=== PATIENT | female | born 1970 | race Caucasian/White ===

== ENCOUNTER → 2016-03-14 | Outpatient (CLI) | payer MEDICARE, OTHER, MEDICAID ==
[~2016-03-14] MED LIST: ASPI81TA85 PO; CALC500T36 PO; CRAN500C2 PO; DEMA20TA6 PO; DEPA500T2 PO; FARX1TAB2 PO; FISH500C PO; GARL200T2 PO; HYDR-3716 PO; HYDR12.55 PO; INSUDET SC; LISI10TA4 PO; METF500T4 PO; MIRA3350 PO; NICO7DIS23 TD; NORV5TAB PO; ONDA4TAB6 PO; PERCOCET PO; PLAV75TA PO; REGL5TAB2 PO; SIMV20TA2 PO; SIMV40TA2 PO; VITMTA PO; XANA0.5T PO; ZEST1TAB3 PO
[2016-03-14 17:52] LABS: BASO % 0.4 % (0.0-1.0); EOS # 0.3 K/mm3 (0.0-0.50); EOS % 2.9 % (0.0-3.0); LARGE UNSTAINED CELL # 0.2 K/mm3 (0.0-0.4); LARGE UNSTAINED CELL % 1.8 % (0.0-4.0); LYMPH % 22.4 % (24.0-44.0); MEAN CORPUSCULAR HEMOGLOBIN 27.6 pg (27.0-33.0); MEAN CORPUSCULAR HGB CONC 31.2 g/dl (32.0-36.5); MEAN CORPUSCULAR VOLUME 88.4 fl (80.0-96.0); MONO # 0.7 K/mm3 (0.0-0.8); MONO % 7.6 % (0.0-5.0); NEUTROPHILS # 5.9 K/mm3 (1.8-7.7); NEUTROPHILS % 64.9 % (36.0-66.0); PLATELET COUNT, AUTOMATED 336 k/mm3 (150-450); RED CELL DISTRIBUTION WIDTH 13.2 % (11.5-14.5)
[2016-03-14 17:54] LABS: INR 0.91
[2016-03-14 17:59] LABS: CALCIUM LEVEL 8.8 MG/DL (8.5-10.1); CREATININE FOR GFR 1.15 MG/DL (0.55-1.02); GLOMERULAR FILTRATION RATE 54.1 (>58); POTASSIUM SERUM 4.3 MEQ/L (3.5-5.1)
== END ==
LOC: M WUC 11:36
PROVIDERS: ATTEND Surgery Vascular Surgery
DX: Z01.818 Encounter for other preprocedural examination (principal); I70.211 Atherosclerosis of native arteries of extremities with intermittent claudication, right leg; D69.8 Other specified hemorrhagic conditions

== ENCOUNTER → 2016-03-14 | Outpatient (CLI) | payer MEDICARE, OTHER, MEDICAID ==
[~2016-03-14] MED LIST changes: -PLAV75TA PO; +PLAV75TA38 PO
[2016-03-14 17:55] LABS: BASO % 0.5 % (0.0-1.0); EOS # 0.3 K/mm3 (0.0-0.50); EOS % 3.9 % (0.0-3.0); LARGE UNSTAINED CELL # 0.1 K/mm3 (0.0-0.4); LARGE UNSTAINED CELL % 1.3 % (0.0-4.0); LYMPH # 1.8 K/mm3 (1.5-4.5); LYMPH % 21.8 % (24.0-44.0); MEAN CORPUSCULAR HEMOGLOBIN 27.7 pg (27.0-33.0); MEAN CORPUSCULAR HGB CONC 31.3 g/dl (32.0-36.5); MEAN CORPUSCULAR VOLUME 88.5 fl (80.0-96.0); MONO # 0.6 K/mm3 (0.0-0.8); MONO % 7.1 % (0.0-5.0); NEUTROPHILS # 5.5 K/mm3 (1.8-7.7); NEUTROPHILS % 65.4 % (36.0-66.0); PLATELET COUNT, AUTOMATED 326 k/mm3 (150-450); RED CELL DISTRIBUTION WIDTH 13.3 % (11.5-14.5); WHITE BLOOD COUNT 8.4 K/mm3 (4.0-10.0)
[2016-03-14 18:25] LABS: ALBUMIN 2.9 GM/DL (3.2-5.2); ALBUMIN/GLOBULIN RATIO 0.83 (1.00-1.93); BILIRUBIN,TOTAL 0.2 MG/DL (0.2-1.0); CALCIUM LEVEL 8.8 MG/DL (8.5-10.1); CREATININE FOR GFR 1.1 MG/DL (0.55-1.02); GLOMERULAR FILTRATION RATE 56.9 (>58); PHOSPHORUS LEVEL 3.4 MG/DL (2.5-4.9); POTASSIUM SERUM 4.5 MEQ/L (3.5-5.1); TOTAL PROTEIN 6.4 GM/DL (6.4-8.2)
[2016-03-16 10:48] LABS: PRETREATED FOLATE FOR RBCFOL 10.1 NG/ML
== END ==
LOC: M WUC 11:40
PROVIDERS: ATTEND Surgery
DX: Z98.84 Bariatric surgery status (principal); K91.2 Postsurgical malabsorption, not elsewhere classified

== ENCOUNTER → 2016-08-16 | Outpatient (REF) | payer MEDICARE, OTHER ==
[~2016-08-16] MED LIST changes: +NICO7DIS2 TD; -NICO7DIS23 TD
== END ==
LOC: M SFHCLERA 15:50
PROVIDERS: ATTEND Physician Assistant
DX: N39.0 Urinary tract infection, site not specified (principal)

== ENCOUNTER → 2016-08-31 | Outpatient (CLI) | payer MEDICARE ==
[2016-08-31 11:45] LABS: BASO % 0.5 % (0.0-1.0); EOS # 0.4 K/mm3 (0.0-0.50); EOS % 4.3 % (0.0-3.0); LARGE UNSTAINED CELL # 0.1 K/mm3 (0.0-0.4); LARGE UNSTAINED CELL % 1.5 % (0.0-4.0); LYMPH # 2.4 K/mm3 (1.5-4.5); MEAN CORPUSCULAR HEMOGLOBIN 29.6 pg (27.0-33.0); MEAN CORPUSCULAR HGB CONC 33.5 g/dl (32.0-36.5); MEAN CORPUSCULAR VOLUME 88.4 fl (80.0-96.0); MONO # 0.6 K/mm3 (0.0-0.8); MONO % 7.1 % (0.0-5.0); NEUTROPHILS # 4.8 K/mm3 (1.8-7.7); NEUTROPHILS % 58.6 % (36.0-66.0); PLATELET COUNT, AUTOMATED 297 k/mm3 (150-450); RED CELL DISTRIBUTION WIDTH 13.7 % (11.5-14.5); WHITE BLOOD COUNT 8.2 K/mm3 (4.0-10.0)
[2016-08-31 12:15] LABS: ALBUMIN 3.2 GM/DL (3.2-5.2); ALBUMIN/GLOBULIN RATIO 0.89 (1.00-1.93); BILIRUBIN,TOTAL 0.3 MG/DL (0.2-1.0); CALCIUM LEVEL 9.2 MG/DL (8.5-10.1); CREATININE FOR GFR 1.3 MG/DL (0.55-1.02); GLOMERULAR FILTRATION RATE 46.9 (>58); MAGNESIUM LEVEL 2.3 MG/DL (1.8-2.4); PHOSPHORUS LEVEL 3.8 MG/DL (2.5-4.9); POTASSIUM SERUM 4.7 MEQ/L (3.5-5.1); TOTAL PROTEIN 6.8 GM/DL (6.4-8.2)
[2016-08-31 13:42] LABS: PRETREATED FOLATE FOR RBCFOL 16.7 NG/ML
== END ==
LOC: M WUC 10:13
PROVIDERS: ATTEND Surgery
DX: K91.2 Postsurgical malabsorption, not elsewhere classified (principal); Z98.84 Bariatric surgery status

== ENCOUNTER → 2016-09-10 | Outpatient (CLI) | payer MEDICARE ==
[~2016-09-10] MED LIST changes: +BIOT7500 PO; -FARX1TAB2 PO; +FARX1TAB3 PO; +LABE30TA PO; +PLAV1TAB2 PO; -PLAV75TA38 PO; +TORS20TA2 PO; +VITA1DRO SL
[2016-09-10 19:05] LABS: MICROSCOPIC INDICATED? MAN YES (NO)
[2016-09-10 19:06] LABS: BACTERIA, URINE LARGE AMOUNT; RBC, URINE TNTC /hpf (0-3); SQUAMOUS EPITHELIAL CELL URINE SMALL AMOUNT /hpf (SMALL AMT)
[2016-09-10 19:08] LABS: MICROSCOPIC EXAM PERFORMED
[2016-09-10 19:18] LABS: BASO # 0.1 K/mm3 (0.0-0.2); BASO % 0.6 % (0.0-1.0); EOS # 0.5 K/mm3 (0.0-0.50); EOS % 4.9 % (0.0-3.0); LARGE UNSTAINED CELL # 0.1 K/mm3 (0.0-0.4); LARGE UNSTAINED CELL % 1.2 % (0.0-4.0); LYMPH # 2.9 K/mm3 (1.5-4.5); LYMPH % 28.1 % (24.0-44.0); MEAN CORPUSCULAR HEMOGLOBIN 29.4 pg (27.0-33.0); MEAN CORPUSCULAR HGB CONC 32.4 g/dl (32.0-36.5); MEAN CORPUSCULAR VOLUME 90.8 fl (80.0-96.0); MONO # 0.6 K/mm3 (0.0-0.8); MONO % 6.3 % (0.0-5.0); NEUTROPHILS # 5.8 K/mm3 (1.8-7.7); NEUTROPHILS % 58.8 % (36.0-66.0); PLATELET COUNT, AUTOMATED 293 k/mm3 (150-450); RED CELL DISTRIBUTION WIDTH 13.6 % (11.5-14.5); WHITE BLOOD COUNT 9.9 K/mm3 (4.0-10.0)
[2016-09-10 20:46] LABS: CALCIUM LEVEL 9.1 MG/DL (8.5-10.1); CREATININE FOR GFR 1.06 MG/DL (0.55-1.02); GLOMERULAR FILTRATION RATE 59.4 (>58); POTASSIUM SERUM 4.3 MEQ/L (3.5-5.1)
== END ==
LOC: M WUC 14:29
PROVIDERS: ATTEND Physician Assistant
DX: N18.3 Chronic kidney disease, stage 3 (moderate) (principal); N39.0 Urinary tract infection, site not specified

== ENCOUNTER → 2016-11-02 | Outpatient (CLI) | payer MEDICARE, MEDICAID ==
--- NOTE | 2016-11-02 15:13 | REP ---
DUPLEX DOPPLER ARTERIAL ULTRASOUND LEFT LOWER EXTREMITY: Real-time ultrasound evaluation and duplex Doppler evaluation of the left lower extremity arterial system is performed. The ANSON is 1. Mild to moderate plaquing is seen throughout the femoral artery. There is no definite significant focal stenosis of the left lower extremity arterial system. Peak systolic velocity and phasicity: Common femoral artery: 143 cm/s Triphasic profunda: 82.7 Triphasic SFA proximal: 78.7 Triphasic SFA mid: 117.6 Triphasic SFA distal: 141.1 Triphasic popliteal: 126.5 Triphasic proximal MIGUEL: 29.5 Biphasic tibial peroneal trunk: 70.1 Monophasic posterior tibial artery proximal: 62.2 Monophasic STEEL PICKLER distal: 120.9 Monophasic MIGUEL distal: 86.8 Signed by Monroe Moura MD 11/02/2016 05:26 P
== END ==
LOC: M RAD 12:33
PROVIDERS: ATTEND Surgery Vascular Surgery
DX: I70.25 Atherosclerosis of native arteries of other extremities with ulceration (principal)

== ENCOUNTER → 2016-11-06 | Outpatient (CLI) | payer MEDICARE, MEDICAID ==
--- NOTE | 2016-11-06 10:08 | REP ---
RIGHT LOWER EXTREMITY ARTERIAL DUPLEX ULTRASOUND: HISTORY: Pain in the right leg. Status post superficial femoral artery stents. Increasing leg pain. FINDINGS: Ankle brachial index is 0.6 on the right. Peak systolic flow velocity in the right common iliac artery is recorded 114 cm/s. The right external iliac artery flow velocity is 102 cm/s. These were triphasic. There is significant atherosclerotic plaquing in the common femoral artery with a greater than 50% stenosis. The right superficial femoral artery stents appear to be occluded. Collateral flow from the proximal superficial femoral artery reconstitutes the distal superficial femoral artery. Monophasic flow is seen here and distally. Doppler flow velocities in the right lower extremity are recorded as follows: CARE COORDINATOR 56 cm/s triphasic, profunda 140 cm/s monophasic, proximal SFA a 26 cm/s monophasic, mid SFA occluded, distal SFA 16 cm/s monophasic, popliteal 56 cm/s monophasic, proximal anterior tibial artery 20 cm/s monophasic, tibial peroneal trunk 39 cm/s monophasic, posterior tibial artery 25 cm/s monophasic waveform, distal posterior tibial artery 15 cm/s monophasic waveform, distal anterior tibial artery 18 cm/s and monophasic waveform. IMPRESSION: SFA stents are occluded. Distal SFA is reconstituted with monophasic flow in the remainder of the right lower extremity. There is a greater than 50% atherosclerotic stenotic plaque in the common femoral artery. Signed by Gavino Sloan MD 11/06/2016 12:13 P
== END ==
LOC: M RAD 07:54
PROVIDERS: ATTEND Surgery Vascular Surgery
DX: M79.604 Pain in right leg (principal); Z95.828 Presence of other vascular implants and grafts; I70.201 Unspecified atherosclerosis of native arteries of extremities, right leg

== ENCOUNTER → 2016-11-20 | Outpatient (CLI) | payer MEDICARE, MEDICAID ==
--- NOTE | 2016-11-20 12:57 | REP ---
BILATERAL LOWER EXTREMITY DOPPLER VENOUS ULTRASOUND: 11/20/2016. CLINICAL HISTORY: Lower extremity superficial veins, evaluate for SFA graft. The patient had previous vein graft harvest on the right. COMPARISON: Left leg ultrasound 09/07/2015, bilateral 01/12/2015 both for DVT and both negative. FINDINGS: Bilateral lower extremity vein mapping performed. The right greater saphenous vein, previously harvested for coronary bypass graft. There is an anterior accessory greater saphenous vein present as well as a lesser saphenous vein. The LSV measures 3.2 mm proximally, 1.9 mm in its mid course and 2.2 mm in its distal course. The left greater saphenous vein is present and patent. It has measurements as follows: Proximal 8.8 mm, mid thigh 5.8 mm, distal 5.5 mm, left knee 5.3 mm, and then the calf 3.8 mm. There are three collaterals seen in the thigh and one perforating vein in the distal thigh. The lesser saphenous vein on the left does not have connection to the popliteal vein visible. In the calf it has a proximal diameter of 2.4 mm, mid diameter 2.5 mm and distally 3 mm. There does appear to be a ticket seller in the mid course of that left LSV. IMPRESSION: 1. The right greater saphenous vein has been harvested for prior CABG. Anterior accessory GSV is present, this is a lesser saphenous vein described above. 2. Greater saphenous vein is present and patent throughout with measurements as described. There are at least three collaterals in the thigh and one ticket seller in the distal thigh. The lesser saphenous vein on the left does not connect to the popliteal vein, but its measurements are given above and there is a ticket seller in its mid course. Signed by Arjun Monahan MD 11/20/2016 04:14 P
== END ==
LOC: M RAD 10:45
PROVIDERS: ATTEND Surgery Vascular Surgery
DX: I70.25 Atherosclerosis of native arteries of other extremities with ulceration (principal)

== ENCOUNTER → 2016-12-20 | Outpatient (CLI) | payer MEDICARE, MEDICAID ==
[2016-12-20 14:12] LABS: MEAN CORPUSCULAR HEMOGLOBIN 29.2 pg (27.0-33.0); MEAN CORPUSCULAR HGB CONC 32.5 g/dl (32.0-36.5); RED CELL DISTRIBUTION WIDTH 13.1 % (11.5-14.5); WHITE BLOOD COUNT 11.6 10^3/uL (4.0-10.0)
[2016-12-20 14:28] LABS: CALCIUM LEVEL 9.3 MG/DL (8.5-10.1); CREATININE FOR GFR 1.08 MG/DL (0.55-1.02); GLOMERULAR FILTRATION RATE 57.9 (>58)
== END ==
LOC: M WUC 08:36
PROVIDERS: ATTEND Surgery Vascular Surgery
DX: I70.25 Atherosclerosis of native arteries of other extremities with ulceration (principal); E11.65 Type 2 diabetes mellitus with hyperglycemia; E78.2 Mixed hyperlipidemia

== ENCOUNTER → 2016-12-20 | Outpatient (CLI) | payer MEDICARE, MEDICAID | LOC: M WUC 08:41 | PROVIDERS: ATTEND Physician Assistant | DX: E11.65 Type 2 diabetes mellitus with hyperglycemia (principal); E78.2 Mixed hyperlipidemia ==

== ENCOUNTER 2016-12-25 12:45 | Inpatient (IN) | payer MEDICARE, MEDICAID ==
[~2016-12-25] VITALS: Ht 162.6 cm; Wt 76.0 kg
[2016-12-27] MEDS ORDERED: THROMBIN SOLN 20,000 UNITS KIT As Ordered ONE (12:45)
[2016-12-27] MEDS ORDERED: LIDOCAINE 1% SDV INJ 30 ML VIAL As Ordered ONE (12:45)
[2016-12-27] MEDS ORDERED: BUPIVACAINE HCL 0.5% 30 ML VIAL As Ordered ONE (12:46)
[2016-12-27] MEDS ORDERED: HEPARIN SOD (PORCINE) 5000 UNITS/ML VIAL As Ordered ONE (12:46)
[2016-12-27] MEDS ORDERED: LIDOCAINE 1% MDV 20ML VIAL SC PRN (13:00)
[2016-12-27] MEDS ORDERED: LR 1,000 ML IV ONE (13:00)
[2016-12-27] MEDS ORDERED: CLINDAMYCIN 900 MG/50 ML PREMIX BAG As Ordered ONE (14:03)
[2016-12-27] MEDS ORDERED: fentaNYL 250 MCG/5 ML INJECTION (J3010) As Ordered ONE (14:13)
[2016-12-27] MEDS ORDERED: MIDAZOLAM INJ 2 MG/2 ML VIAL (J2250) As Ordered ONE ×2 (14:13→16:47)
[2016-12-27] MEDS ORDERED: PROPOFOL 500 MG/50 ML VIAL As Ordered ONE (14:13)
[2016-12-27] MEDS ORDERED: PHENYLEPHRINE INJ 10MG/ML VIAL (J2370) As Ordered ONE (14:24)
[2016-12-27] MEDS ORDERED: ePHEDrine SULFATE 25 MG/5 ML(5MG/ML) SYRINGE As Ordered ONE (14:33)
[2016-12-27] MEDS ORDERED: ROCURONIUM BROMIDE 50 MG/5 ML VIAL/SYRINGE As Ordered ONE (14:33)
[2016-12-27] MEDS ORDERED: DESFLURANE 240 ML INHALANT As Ordered ONE ×2 (15:11→16:53)
[2016-12-27] MEDS ORDERED: dexameTHASONE 4 MG/ML 1ML VIAL (J1100) As Ordered ONE (15:28)
[2016-12-27] MEDS ORDERED: NEOSTIGMINE 10 MG/10 ML VIAL (J2710) As Ordered ONE (16:10)
[2016-12-27] MEDS ORDERED: ONDANSETRON 4MG/2ML VIAL (J2405) As Ordered ONE (16:10)
[2016-12-27] MEDS ORDERED: GLYCOPYRROLATE INJ 0.2 MG/ML 2 ML VIAL As Ordered ONE (16:10)
[2016-12-27] MEDS: LR 1,000 ML IV SCH (16:24)
[2016-12-27] MEDS ORDERED: ONDANSETRON 4MG/2ML VIAL (J2405) IV PRN ×3 (16:30→18:30)
[2016-12-27] MEDS ORDERED: BISACODYL 10 MG SUPP PR PRN (16:30)
[2016-12-27] MEDS ORDERED: MOM 30ML SUSPENSION UDC PO PRN (16:30)
[2016-12-27] MEDS ORDERED: NORCO, ANEXSIA 5/325MG TABLET (HYDROcodone/ACETAMINOPHEN) PO PRN ×2 (16:30)
[2016-12-27] MEDS ORDERED: ACETAMINOPHEN TAB 650MG DOSE (2X325MG) PO PRN ×2 (16:30→20:30)
[2016-12-27] MEDS ORDERED: fentaNYL 100 MCG/2 ML INJECTION (J3010) As Ordered ONE ×2 (16:46→16:55)
[2016-12-27] MEDS ORDERED: LIDOCAINE 2% INJ 100 MG/5 ML SDV (FOR ANES.) As Ordered ONE (16:47)
[2016-12-27] MEDS ORDERED: PROPOFOL 200 MG/20 ML VIAL As Ordered ONE (16:47)
[2016-12-27] MEDS: fentaNYL 100 MCG/2 ML INJECTION (J3010) IV PRN ×6 (16:58→17:54)
[2016-12-27] MEDS ORDERED: METOCLOPRAMIDE INJ 10MG/2ML VIAL (J2765) IV PRN ×2 (17:00→18:30)
[2016-12-27] MEDS ORDERED: PERCOCET 5MG/325MG TAB PO PRN ×2 (17:00→18:30)
[2016-12-27] MEDS ORDERED: LR 1,000 ML IV SCH ×2 (17:00→18:30)
[2016-12-27] MEDS ORDERED: MORPHINE 2 MG/ML 1ML SYRINGE IV PRN ×2 (17:00→18:30)
[2016-12-27 17:45] VITALS: BP 143/80
[2016-12-27 18:15] VITALS: BP 159/86
[2016-12-27] MEDS ORDERED: fentaNYL 100 MCG/2 ML INJECTION (J3010) IV PRN (18:30)
[2016-12-27 18:45] VITALS: BP 172/94
[2016-12-27 19:45] VITALS: BP 139/75
[2016-12-27] MEDS ORDERED: NALOXONE INJ 0.4 MG/1 ML VIAL (J2310) IV PRN (20:15)
[2016-12-27] MEDS ORDERED: NALBUPHINE HCL 10 MG/ML AMP (J2300) IV PRN (20:15)
[2016-12-27] MEDS ORDERED: MORPHINE 1MG/ML IN 0.9% NACL 100ML IV BAG IV PRN (20:15)
[2016-12-27] MEDS ORDERED: diphenhydrAMINE INJ 50MG/ML VIAL (J1200) IV PRN (20:15)
[2016-12-27] MEDS ORDERED: EPIDURAL/PCA KEYS XX PRN (20:15)
[2016-12-27 20:45] VITALS: BP 147/79
[2016-12-27] MEDS ORDERED: ASCORBIC ACID 250 MG TAB PO SCH (21:00)
[2016-12-27] MEDS ORDERED: BRINZOLAMIDE 1 % OPHTH SUSP (AZOPT) 10ML OU SCH (21:00)
[2016-12-27] MEDS: SENOKOT S TAB PO SCH (21:59)
[2016-12-27] MEDS: DOCUSATE SODIUM 100 MG CAP PO SCH (21:59)
[2016-12-28] VITALS (7 sets, daily range): BP systolic 132–145; BP diastolic 65–76
[2016-12-28] MEDS ORDERED: MORPHINE 1MG/ML IN 0.9% NACL 100ML IV BAG IV PRN (04:45)
[2016-12-28] MEDS: LR 1,000 ML IV SCH ×2 (04:54→20:40)
[2016-12-28 06:57] LABS: CALCIUM LEVEL 8.2 MG/DL (8.5-10.1); CREATININE FOR GFR 1.15 MG/DL (0.55-1.02); GLOMERULAR FILTRATION RATE 53.8 (>58); POTASSIUM SERUM 4.2 MEQ/L (3.5-5.1)
[2016-12-28 07:00] LABS: BASO % 0.2 % (0.0-1.0); EOS % 0.1 % (0.0-3.0); IMMATURE GRANULOCYTE % 0.2 % (0-0); LYMPH # 1.7 10^3/uL (1.5-4.5); LYMPH % 13.4 % (24.0-44.0); MEAN CORPUSCULAR HEMOGLOBIN 28.8 pg (27.0-33.0); MEAN CORPUSCULAR HGB CONC 32.9 g/dl (32.0-36.5); MEAN CORPUSCULAR VOLUME 87.5 fl (80.0-96.0); MONO # 1.5 10^3/uL (0.0-0.8); MONO % 11.8 % (0.0-5.0); NEUTROPHILS # 9.3 10^3/uL (1.8-7.7); NEUTROPHILS % 74.3 % (36.0-66.0); PLATELET COUNT, AUTOMATED 213 10^3/uL (150-450); RED CELL DISTRIBUTION WIDTH 13.2 % (11.5-14.5); WHITE BLOOD COUNT 12.6 10^3/uL (4.0-10.0)
[2016-12-28] MEDS ORDERED: ATENOLOL 25 MG TAB PO SCH (09:00)
[2016-12-28] MEDS: SENOKOT S TAB PO SCH ×2 (10:51→21:44)
[2016-12-28] MEDS: DOCUSATE SODIUM 100 MG CAP PO SCH ×2 (10:51→21:45)
[2016-12-28] MEDS: ALPRAZolam 0.5 MG TAB PO SCH (10:51)
[2016-12-28] MEDS: MULTIVITAMINS/MINERALS THERAP 1 TAB PO SCH (10:51)
[2016-12-28] MEDS: CLOPIDOGREL 75 MG TAB PO SCH (10:51)
[2016-12-28] MEDS: TORSEMIDE 20 MG TAB PO SCH (10:52)
[2016-12-28] MEDS: LABETALOL 100 MG TAB PO SCH (10:53)
[2016-12-28] MEDS: NORCO, ANEXSIA 5/325MG TABLET (HYDROcodone/ACETAMINOPHEN) PO PRN (21:46)
[2016-12-28] MEDS: zolPIDEM TARTRATE 5 MG TAB PO PRN (21:46)
[2016-12-29] MEDS: MORPHINE 2 MG/ML 1ML SYRINGE IV PRN ×4 (04:20→21:04)
[2016-12-29] MEDS: NORCO, ANEXSIA 5/325MG TABLET (HYDROcodone/ACETAMINOPHEN) PO PRN ×4 (04:20→23:57)
[2016-12-29 04:40] VITALS: BP 170/79
[2016-12-29 04:43] VITALS: BP 152/74
[2016-12-29] MEDS: LR 1,000 ML IV SCH (09:00)
[2016-12-29] MEDS: MULTIVITAMINS/MINERALS THERAP 1 TAB PO SCH (10:00)
[2016-12-29] MEDS: ALPRAZolam 0.5 MG TAB PO SCH (10:00)
[2016-12-29] MEDS: TORSEMIDE 20 MG TAB PO SCH (10:01)
[2016-12-29] MEDS: DOCUSATE SODIUM 100 MG CAP PO SCH ×2 (10:01→21:04)
[2016-12-29] MEDS: SENOKOT S TAB PO SCH ×2 (10:01→21:04)
[2016-12-29] MEDS: LABETALOL 100 MG TAB PO SCH (10:04)
[2016-12-29] MEDS: CLOPIDOGREL 75 MG TAB PO SCH (10:05)
[2016-12-29 14:00] VITALS: BP 132/62
[2016-12-29] MEDS ORDERED: GLUCAGON FOR INJ 1 MG VIAL (J1610) SC PRN (19:45)
[2016-12-29] MEDS ORDERED: DEXTROSE 50% 50 ML SYRINGE IV PRN (19:45)
[2016-12-29] MEDS ORDERED: GLUCOSE 4 GM CHEW TABLET PO PRN (19:45)
[2016-12-29] MEDS: zolPIDEM TARTRATE 5 MG TAB PO PRN (21:04)
[2016-12-29] MEDS: HumaLOG INSULIN (NovoLOG) PER UNIT SC SCH (21:48)
[2016-12-29 22:00] VITALS: BP 134/60
[2016-12-30] MEDS: MORPHINE 2 MG/ML 1ML SYRINGE IV PRN ×4 (01:11→23:51)
[2016-12-30] MEDS: LR 1,000 ML IV SCH ×2 (03:52→17:19)
[2016-12-30 06:00] VITALS: BP 158/70
[2016-12-30] MEDS: NORCO, ANEXSIA 5/325MG TABLET (HYDROcodone/ACETAMINOPHEN) PO PRN ×3 (06:21→18:26)
[2016-12-30] MEDS: HumaLOG INSULIN (NovoLOG) PER UNIT SC SCH ×4 (07:30→21:00)
[2016-12-30] MEDS: MULTIVITAMINS/MINERALS THERAP 1 TAB PO SCH (10:38)
[2016-12-30] MEDS: CLOPIDOGREL 75 MG TAB PO SCH (10:38)
[2016-12-30] MEDS: ALPRAZolam 0.5 MG TAB PO SCH (10:38)
[2016-12-30] MEDS: SENOKOT S TAB PO SCH ×2 (10:39→20:42)
[2016-12-30] MEDS: DOCUSATE SODIUM 100 MG CAP PO SCH ×2 (10:39→20:42)
[2016-12-30] MEDS: TORSEMIDE 20 MG TAB PO SCH (10:40)
[2016-12-30] MEDS: LABETALOL 100 MG TAB PO SCH (11:31)
[2016-12-30 14:00] VITALS: BP 140/63
[2016-12-30] MEDS ORDERED: MOM 30ML SUSPENSION UDC PO ONE (19:45)
[2016-12-30] MEDS: zolPIDEM TARTRATE 5 MG TAB PO PRN (21:39)
[2016-12-30 22:00] VITALS: BP 138/65
[2016-12-31] MEDS: NORCO, ANEXSIA 5/325MG TABLET (HYDROcodone/ACETAMINOPHEN) PO PRN ×4 (01:45→23:47)
[2016-12-31 06:00] VITALS: BP 131/64
[2016-12-31] MEDS: MORPHINE 2 MG/ML 1ML SYRINGE IV PRN ×4 (06:03→20:50)
[2016-12-31] MEDS: TORSEMIDE 20 MG TAB PO SCH (09:10)
[2016-12-31] MEDS: ALPRAZolam 0.5 MG TAB PO SCH (09:10)
[2016-12-31] MEDS: DOCUSATE SODIUM 100 MG CAP PO SCH ×2 (09:10→20:48)
[2016-12-31] MEDS: MULTIVITAMINS/MINERALS THERAP 1 TAB PO SCH (09:10)
[2016-12-31] MEDS: LABETALOL 100 MG TAB PO SCH (09:10)
[2016-12-31] MEDS: CLOPIDOGREL 75 MG TAB PO SCH (09:10)
[2016-12-31] MEDS: SENOKOT S TAB PO SCH ×2 (09:10→20:48)
[2016-12-31] MEDS: HumaLOG INSULIN (NovoLOG) PER UNIT SC SCH ×4 (09:11→20:52)
--- NOTE | 2016-12-31 15:30 | REP ---
LEFT LOWER EXTREMITY DUPLEX DOPPLER ARTERIAL ULTRASOUND: Real-time sonographic ultrasound evaluation and duplex Doppler interrogation of the left lower extremity arterial system is performed. There are normal flow velocities in the left common femoral artery, superficial femoral artery, popliteal artery as well as anterior and posterior tibial arteries with triphasic waveforms in all of these vessels. There is no duplex Doppler sonographic evidence of hemodynamically significant stenosis of any of these vessels. Peak systolic velocity of the left common femoral artery is 133 cm/s, superficial femoral artery 101.5 cm/s and left popliteal artery 86.2 cm/s. Signed by Monroe Moura MD 12/31/2016 04:36 P
[2016-12-31 22:00] VITALS: BP 156/71
[2016-12-31] MEDS: zolPIDEM TARTRATE 5 MG TAB PO PRN (23:47)
[2017-01-01] MEDS: MORPHINE 2 MG/ML 1ML SYRINGE IV PRN ×6 (02:11→19:55)
[2017-01-01 06:00] VITALS: BP 143/67
[2017-01-01] MEDS: NORCO, ANEXSIA 5/325MG TABLET (HYDROcodone/ACETAMINOPHEN) PO PRN ×3 (07:34→23:04)
[2017-01-01] MEDS: ALPRAZolam 0.5 MG TAB PO SCH (08:30)
[2017-01-01] MEDS: DOCUSATE SODIUM 100 MG CAP PO SCH ×2 (08:30→20:41)
[2017-01-01] MEDS: SENOKOT S TAB PO SCH ×2 (08:30→20:41)
[2017-01-01] MEDS: LABETALOL 100 MG TAB PO SCH (08:31)
[2017-01-01] MEDS: TORSEMIDE 20 MG TAB PO SCH (08:31)
[2017-01-01] MEDS: CLOPIDOGREL 75 MG TAB PO SCH (08:31)
[2017-01-01] MEDS: MULTIVITAMINS/MINERALS THERAP 1 TAB PO SCH (08:32)
[2017-01-01] MEDS: HumaLOG INSULIN (NovoLOG) PER UNIT SC SCH ×4 (08:33→20:36)
[2017-01-01 14:00] VITALS: BP 147/73
[2017-01-01 22:00] VITALS: BP 143/69
[2017-01-02] MEDS ORDERED: NORCO, ANEXSIA 5/325MG TABLET (HYDROcodone/ACETAMINOPHEN) PO PRN (00:15)
[2017-01-02] MEDS: zolPIDEM TARTRATE 5 MG TAB PO PRN (01:44)
[2017-01-02 06:00] VITALS: BP 142/71
[2017-01-02] MEDS: HumaLOG INSULIN (NovoLOG) PER UNIT SC SCH ×4 (08:10→21:00)
[2017-01-02] MEDS: NORCO, ANEXSIA 5/325MG TABLET (HYDROcodone/ACETAMINOPHEN) PO PRN ×3 (08:13→16:20)
[2017-01-02] MEDS: MULTIVITAMINS/MINERALS THERAP 1 TAB PO SCH (08:13)
[2017-01-02] MEDS: ALPRAZolam 0.5 MG TAB PO SCH (08:13)
[2017-01-02] MEDS: TORSEMIDE 20 MG TAB PO SCH (08:14)
[2017-01-02] MEDS: DOCUSATE SODIUM 100 MG CAP PO SCH ×2 (08:14→20:34)
[2017-01-02] MEDS: CLOPIDOGREL 75 MG TAB PO SCH (08:14)
[2017-01-02] MEDS: SENOKOT S TAB PO SCH ×2 (08:14→20:34)
[2017-01-02] MEDS: LABETALOL 100 MG TAB PO SCH (08:15)
[2017-01-02 14:00] VITALS: BP 139/67
[2017-01-02] MEDS ORDERED: PERCOCET 5MG/325MG TAB PO PRN (20:30)
[2017-01-02] MEDS: PERCOCET 5MG/325MG TAB PO PRN (20:36)
[2017-01-02 22:00] VITALS: BP 164/86
[2017-01-03] VITALS (13 sets, daily range): BP systolic 120–178; BP diastolic 69–88
[2017-01-03] MEDS: zolPIDEM TARTRATE 5 MG TAB PO PRN (00:43)
[2017-01-03] MEDS: PERCOCET 5MG/325MG TAB PO PRN ×5 (00:44→21:49)
[2017-01-03] MEDS: HumaLOG INSULIN (NovoLOG) PER UNIT SC SCH ×4 (07:54→20:59)
[2017-01-03] MEDS: TORSEMIDE 20 MG TAB PO SCH (08:00)
[2017-01-03] MEDS: DOCUSATE SODIUM 100 MG CAP PO SCH ×2 (08:00→20:59)
[2017-01-03] MEDS: CLOPIDOGREL 75 MG TAB PO SCH (08:00)
[2017-01-03] MEDS: LABETALOL 100 MG TAB PO SCH (08:00)
[2017-01-03] MEDS: ALPRAZolam 0.5 MG TAB PO SCH (08:00)
[2017-01-03] MEDS: SENOKOT S TAB PO SCH ×2 (08:01→20:59)
[2017-01-03] MEDS: MULTIVITAMINS/MINERALS THERAP 1 TAB PO SCH (08:01)
[2017-01-03] MEDS ORDERED: fentaNYL 100 MCG/2 ML INJECTION (J3010) As Ordered ONE (15:10)
[2017-01-03] MEDS ORDERED: MIDAZOLAM INJ 2 MG/2 ML VIAL (J2250) As Ordered ONE (15:11)
[2017-01-03] MEDS ORDERED: HEPARIN 1,000 UNITS/ML 10ML VIAL (FOR RADIOLOGY& DIALYSIS ONLY) As Ordered ONE (15:11)
[2017-01-03] MEDS ORDERED: ISOVUE-300 61% 50ML VIAL (Q9967) As Ordered ONE (15:12)
[2017-01-04] MEDS: zolPIDEM TARTRATE 5 MG TAB PO PRN (02:26)
[2017-01-04] MEDS: PERCOCET 5MG/325MG TAB PO PRN ×3 (02:27→12:46)
[2017-01-04 06:00] VITALS: BP 163/75
[2017-01-04] MEDS: HumaLOG INSULIN (NovoLOG) PER UNIT SC SCH ×2 (08:59→12:00)
[2017-01-04 09:02] VITALS: BP 157/81
[2017-01-04] MEDS: LABETALOL 100 MG TAB PO SCH (09:02)
[2017-01-04] MEDS: SENOKOT S TAB PO SCH (09:02)
[2017-01-04] MEDS: TORSEMIDE 20 MG TAB PO SCH (09:02)
[2017-01-04] MEDS: DOCUSATE SODIUM 100 MG CAP PO SCH (09:02)
[2017-01-04] MEDS: MULTIVITAMINS/MINERALS THERAP 1 TAB PO SCH (09:03)
[2017-01-04] MEDS: CLOPIDOGREL 75 MG TAB PO SCH (09:03)
[2017-01-04] MEDS ORDERED: INFLUENZA QUADRIVALENT PF VACCINE 0.5ML SYRINGE (90686) IM ONE (15:00)
--- NOTE | 2017-01-16 18:30 | REPIR ---
DATE OF PROCEDURE: 01/03/2017 PREPROCEDURE DIAGNOSES: Left lower extremity fist toe amputation site ulcer, left lower extremity pain. POSTPROCEDURE DIAGNOSES: Left lower extremity fist toe amputation site ulcer, left lower extremity pain. PROCEDURE: Ultrasound guided right brachial vein IV placement, aortogram, iliofemoral angiogram, left lower extremity angiogram, MINX closure of the left common femoral arteriotomy. SURGEON: Dr. Jorge Harris. DIRECTOR OF PROVIDER RELATIONS: ANESTHESIA: Local with sedation with 2 mg of Versed, 100 mcg of Fentanyl and 10 mL of 2% lidocaine. SEDATION TIME: 1546 to 1625, for a total of 39 minutes. FLUOROSCOPIC TIME: 2.222 minutes. CONTRAST: 17 mL. HEPARIN: None. COMPLICATIONS: None. DRAINS: None. SPECIMENS: None. IMPLANTS: Left femoral MINX closure device. . INDICATION: The patient is a 46-year-old female with recent right femoral popliteal artery bypass grafting and pain and ulceration of the left lower extremity. Patient underwent an ultrasound showing the flow to be normal in the left lower extremity with no obvious stenosis or occlusion but the patient has an ulcer on the previous left 1st toe amputation site and chronic pain in the left lower extremity with non palpable pulses. Patient wanted to undergo a left lower extremity angiogram with possible angioplasty and stent. Risks, benefits and alternative treatment options were discussed with the patient. PROCEDURE: The patient was taken to the angiography suite and placed supine on the angiography room table and then prepped and draped in a standard surgical fashion. The left common femoral artery was cannulated with a micropuncture needle. After anesthetizing the overlying skin with 1% Lidocaine a micropuncture wire was advanced through the micropuncture needle which was upside to a micropuncture sheath. An advancer wire was advanced through the micropuncture sheath which was upsized to a 5-[place] sheath. An Omni Flush catheter was placed in the aorta and an aortogram was performed. Catheter was pulled down level with the bifurcation needle. An iliofemoral angiogram was performed. A left lower extremity angiogram was then performed through the sheath showing an approximate 70-80% stenosis in the mid superficial femoral and popliteal artery junction. The catheter and wires were removed. The sheath was removed and a MINX closure device was used to close the arteriotomy in the left common femoral artery. No intervention was performed due to the retrograde cannulation and inability to cannulate the right side due to a recent right femoral popliteal artery bypass graft. The patient will return at a later date for a left lower extremity angioplasty with angiogram. Dressings were applied. The patient tolerated the procedure well. All instrument, sponge and needle counts were correct at the end of the case. There were no complications. Dr. Harris was present for and directed the entire case. Patient was transferred to the holding area and subsequently to the floor in stable condition. RADIOLOGIC SUPERVISION INTERPRETATION: The aortogram and iliofemoral angiogram were normal. There was a stenosis at the left superficial femoral popliteal artery junction with good inflow below the knee region by the tibial vessels. A MINX closure device was used to close the arteriotomy in the left common femoral artery.
--- NOTE | 2017-01-17 17:47 | RO ---
DATE OF PROCEDURE: 12/27/2016 PREOPERATIVE DIAGNOSIS: Right lower extremity claudication, right occluded superficial femoral artery. POSTOPERATIVE DIAGNOSIS: Right lower extremity claudication, right occluded superficial femoral artery. PROCEDURE: Re-do right common femoral arterial exposure, right common femoral to above knee popliteal artery bypass graft with 8 mm polytetrafluoroethylene (PTFE) graft. SURGEON: Dr. Bi Harris TERRAZZO SUPERVISOR: None. ANESTHESIA: General endotracheal. ESTIMATED BLOOD LOSS: 100 mL. IV FLUID: 1100 mL. URINE OUTPUT: 175 mL via Galindo. HEPARIN: 7000 units followed by 2000 units additional bolus, clindamycin 900 units. COMPLICATIONS: None. DRAINS: None. SPECIMENS: None. IMPLANTS: 8 mm PTFE graft from the right common femoral artery to the above knee popliteal artery. INDICATION: The patient is a 46-year-old female with diabetes mellitus and previous angioplasty and stenting of her right common superficial femoral artery that has now had occlusion of her right superficial femoral artery within the stent. The patient has significant claudication in the right lower extremity and will undergo a right [id number] artery bypass graft. Risks, benefits and alternative treatment options were discussed with the patient. DESCRIPTION OF PROCEDURE: The patient was taken to the operating room, placed supine on the operating room table and then prepped and draped in . A time-out was then performed with the team members in the room confirming the correct procedure, patient and laterality. The right common femoral artery was then exposed through an oblique incision in the inguinal region, and this was a re-do exposure with a large amount of scar tissue noted. The common femoral artery was dissected proximally and distally and then encircled with Vesi-loops. The above-knee popliteal artery was then exposed through a transverse incision in the above-knee region and the popliteal artery was exposed and dissected proximally and distally. The graft was tunneled and then anastomosed to the right common femoral artery and the right popliteal artery using #6-0 Prolene suture. There was good flow through the graft and into the right lower extremity with 2+ palpable dorsalis pedis and posterior tibial pulses at the completion of the bypass. The incisions were then closed once hemostasis was obtained using #2-0 Vicryl to approximate the deeper layers and maría to approximate the skin. All instrument, sponge and needle counts were correct at the end of the case. There were no complications. Dr. Harris was present for and directed the entire case. The patient was transferred to the recovery room, awake, alert, extubated and in stable condition.
--- NOTE | 2017-01-21 11:52 | DSES ---
DATE OF ADMISSION: 12/27/2016 DATE OF DISCHARGE: 01/04/2017 ADMITTING DIAGNOSES: Bilateral lower extremity atherosclerotic arterial occlusive disease, diabetes mellitus. PROCEDURES PERFORMED: Right femoral to popliteal artery bypass graft, left lower extremity angiogram. HOSPITAL COURSE: The patient was admitted and underwent a right femoral to popliteal artery bypass graft with good result with palpable dorsalis pedis and posterior tibial pulses in the right lower extremity. The patient had an ulcer at the tip of her previous first toe amputation and underwent angiography of the left lower extremity showing stenosis in her superficial femoral and popliteal artery junction, which was not amenable to intervention at this time due to her femoral to popliteal artery bypass graft. The patient will followup as an outpatient for left lower extremity angiogram with angioplasty of the stenosis in her superficial femoral and popliteal arteries.
== END 2017-01-04 14:45 | disposition home or self-care (01) | DRG 254 ==
LOC: M OR 12-27 12:43 → M MSPAV 12-27 17:47
PROVIDERS: ADMIT Surgery Vascular Surgery; ATTEND Surgery Vascular Surgery
PROC: 041K0JL Bypass Right Femoral Artery to Popliteal Artery with Synthetic Substitute, Open Approach (ICD-10-PCS; principal; 2016-12-27 15:45)
DX: I70.211 Atherosclerosis of native arteries of extremities with intermittent claudication, right leg (principal); E11.9 Type 2 diabetes mellitus without complications; I10 Essential (primary) hypertension; Z79.82 Long term (current) use of aspirin; Z79.899 Other long term (current) drug therapy; Z87.891 Personal history of nicotine dependence

== ENCOUNTER → 2017-02-19 | Outpatient (CLI) | payer MEDICARE, MEDICAID ==
[~2017-02-19] MED LIST changes: +HEPARIN 1,000 UNITS/ML 10ML VIAL (FOR RADIOLOGY& DIALYSIS ONLY) As Ordered ONE; +ISOVUE-300 61% 50ML VIAL (Q9967) As Ordered ONE; +MIDAZOLAM INJ 2 MG/2 ML VIAL (J2250) As Ordered ONE; +PROTAMINE SULF INJ 50 MG/5 ML VIAL (J2720) As Ordered ONE; +fentaNYL 100 MCG/2 ML INJECTION (J3010) As Ordered ONE
--- NOTE | 2017-02-27 16:53 | REPIR ---
DATE OF PROCEDURE: PREPROCEDURE DIAGNOSIS: Nonhealing left lower extremity first amputation toe site ulcer, left lower extremity femoral arterial atherosclerotic occlusion disease, diabetes mellitus. POSTPROCEDURE DIAGNOSIS: Nonhealing left lower extremity first amputation toe site ulcer, left lower extremity femoral arterial atherosclerotic occlusion disease, diabetes mellitus. PROCEDURE: Right common femoral arterial cannulation, selective left common femoral artery catheter placement with angiogram, selective left popliteal artery angiogram, catheter placement angiogram, left superficial femoral arthrectomy with 2.47 mm jet stream arthrectomy catheter, left superficial femoral artery angioplasty with 7 x 150 mm balloon. SURGEON: Dr. Jorge Harris. WORKFORCE DEVELOPMENT VICE PRESIDENT: ANESTHESIA: Local with sedation. SEDATION TIME: 11:25-12.45 for a total of 80 minutes with the sedation and cardiopulmonary monitoring performed by the nurse in the room under my direct supervision. I was present for and directed the entire case. INDICATION: Patient is a 46year-old female who has previously undergone angioplasty of her left superficial femoral artery and has had recurrence and now has an ulcer on her left first toe amputation site which has been slow to heal. Patient previously underwent angiogram showing stenosis in the superficial femoral artery and now follows up for angiogram with possible angioplasty and stent and or arthrectomy. Risks, benefits and alternative treatment options were discussed with the patient. PROCEDURE: The patient was taken to the angiography suite and placed supine on the angiography room table and the right common femoral artery was cannulated with a micropuncture needle after anesthetizing the overlying skin with 1% lidocaine. The micropuncture wire was advanced through the micropuncture needle which was upsized to a micropuncture sheath. A Exploretripson wire was advanced through the micropuncture sheath which was upsized to a #5-[place] sheath. An Omni flush catheter was used to transverse the bifurcation and the catheter was placed in the left common femoral artery. This was then advanced into the left superficial femoral artery at the level of the stenosis. This was used to cross the stenosis and then place in the left popliteal artery and an angiogram was performed confirming intraluminal positioning at the crossing lesion. Arthrectomy was then performed of the left superficial femoral artery with a cm Jet stream catheter. The followup angiogram showed some minor luminal irregularities and the left superficial femoral artery was angioplastied with a 7 x 150 mm balloon with a followup angiogram showing resolution of the stenosis. Catheters and wires were removed. The sheath was removed and a Mynx closure device was used to close the arteriotomy in the right common femoral artery with an additional 10 minutes of adjunctive pressure applied for hemostasis. Dressings were then applied. Patient tolerated the procedure well. All instrument, sponge and needle counts were correct at the end of the case. There were no complications. Dr. Harris was present for and directed the entire case. Patient was transferred to the holding area and subsequently discharged in stable condition. RADIOLOGIC SUPERVISION INTERPRETATION: The initial angiogram showed the stenosis in the left superficial femoral artery which underwent arthrectomy with a Jet stream catheter and then followup angioplasty with good angiographic result noted on followup angiography. A Mynx closure device was used to close the arteriotomy in the right common femoral artery.
== END | disposition home or self-care (01) ==
LOC: M IRPRO 10:07
PROVIDERS: ATTEND Surgery Vascular Surgery
DX: I70.245 Atherosclerosis of native arteries of left leg with ulceration of other part of foot (principal); L97.528 Non-pressure chronic ulcer of other part of left foot with other specified severity; E11.9 Type 2 diabetes mellitus without complications
CPT/HCPCS: 37225; 75710; 99152; 99153; C1725; C1769; C1887; C1894; J2250; J2720; J3010; Q9967

== ENCOUNTER → 2017-04-02 | Outpatient (CLI) | payer MEDICARE, MEDICAID | LOC: M RAD 08:51 | DX: I70.213 Atherosclerosis of native arteries of extremities with intermittent claudication, bilateral legs (principal); I70.25 Atherosclerosis of native arteries of other extremities with ulceration; E08.621 Diabetes mellitus due to underlying condition with foot ulcer | CPT/HCPCS: 93923 ==

== ENCOUNTER → 2017-06-12 | Outpatient (REF) | payer MEDICARE, MEDICAID ==
[2017-06-12 19:28] LABS: ESTIMATED AVERAGE GLUCOSE 169 MG/DL (60-110); HEMOGLOBIN A1c 7.5 %
[2017-06-12 19:41] LABS: ALBUMIN 2.6 GM/DL (3.2-5.2); ALBUMIN/GLOBULIN RATIO 0.81 (1.00-1.93); ALKALINE PHOSPHATASE 105 U/L (45-117); ALT/SGPT 14 U/L (12-78); ANION GAP 4 MEQ/L (8-16); AST/SGOT 11 U/L (7-37); BILIRUBIN,TOTAL 0.3 MG/DL (0.2-1.0); BLOOD UREA NITROGEN 15 MG/DL (7-18); CALCIUM LEVEL 8.4 MG/DL (8.5-10.1); CARBON DIOXIDE LEVEL 29 MEQ/L (21-32); CHLORIDE LEVEL 112 MEQ/L (98-107); CHOLESTEROL LEVEL 162 MG/DL (<200); CREATININE FOR GFR 1.04 MG/DL (0.55-1.30); GLOMERULAR FILTRATION RATE > 60.0 (>58); GLUCOSE, FASTING 131 MG/DL (70-100); HDL CHOLESTEROL 54 MG/DL (>40); NON-HDL-C 108 MG/DL; POTASSIUM SERUM 4.4 MEQ/L (3.5-5.1); SODIUM LEVEL 145 MEQ/L (136-145); TOTAL PROTEIN 5.8 GM/DL (6.4-8.2); TRIGLYCERIDES LEVEL 115 MG/DL (<150)
== END ==
LOC: M SFHCLERA 11:21
DX: E78.2 Mixed hyperlipidemia (principal); E11.65 Type 2 diabetes mellitus with hyperglycemia; R82.90 Unspecified abnormal findings in urine
CPT/HCPCS: 80053

== ENCOUNTER 2017-07-04 13:39 | Inpatient (IN) | payer MEDICARE, MEDICAID ==
[~2017-07-04 13:39] MED LIST changes: -ASPI81TA85 PO; -BIOT7500 PO; +BISACODYL 10 MG SUPP PR; -CALC500T36 PO; -CRAN500C2 PO; -DEMA20TA6 PO; -DEPA500T2 PO; -FARX1TAB3 PO; -FISH500C PO; -GARL200T2 PO; -HEPARIN 1,000 UNITS/ML 10ML VIAL (FOR RADIOLOGY& DIALYSIS ONLY) As Ordered ONE; -HYDR-3716 PO; -HYDR12.55 PO; -INSUDET SC; -ISOVUE-300 61% 50ML VIAL (Q9967) As Ordered ONE; -LABE30TA PO; -LISI10TA4 PO; -METF500T4 PO; -MIDAZOLAM INJ 2 MG/2 ML VIAL (J2250) As Ordered ONE; -MIRA3350 PO; -NICO7DIS2 TD; -NORV5TAB PO; -ONDA4TAB6 PO; -PERCOCET PO; -PLAV1TAB2 PO; -PROTAMINE SULF INJ 50 MG/5 ML VIAL (J2720) As Ordered ONE; -REGL5TAB2 PO; -SIMV20TA2 PO; -SIMV40TA2 PO; -TORS20TA2 PO; -VITA1DRO SL; -VITMTA PO; -XANA0.5T PO; -ZEST1TAB3 PO; -fentaNYL 100 MCG/2 ML INJECTION (J3010) As Ordered ONE
[2017-07-04 14:39] LABS: BASO # 0.1 10^3/uL (0.0-0.2); BASO % 0.5 % (0.0-1.0); EOS # 0.3 10^3/uL (0.0-0.50); EOS % 2.9 % (0.0-3.0); HEMATOCRIT 40.8 % (36.0-47.0); HEMOGLOBIN 13.4 g/dl (12.0-15.5); IMMATURE GRANULOCYTE % 0.3 % (0-3.0); LYMPH # 2.4 10^3/uL (1.5-4.5); LYMPH % 24.8 % (24.0-44.0); MEAN CORPUSCULAR HGB CONC 32.8 g/dl (32.0-36.5); MEAN CORPUSCULAR VOLUME 85.2 fl (80.0-96.0); MONO # 0.7 10^3/uL (0.0-0.8); MONO % 7.1 % (0.0-5.0); NEUTROPHILS # 6.2 10^3/uL (1.8-7.7); NEUTROPHILS % 64.4 % (36.0-66.0); PLATELET COUNT, AUTOMATED 258 10^3/uL (150-450); RED BLOOD COUNT 4.79 10^6/uL (4.00-5.40); RED CELL DISTRIBUTION WIDTH 14.2 % (11.5-14.5); WHITE BLOOD COUNT 9.6 10^3/uL (4.0-10.0)
[2017-07-04 14:43] LABS: CONTROL LINE UCG INT CTR LINE PRESENT; URINE PREG TEST NEGATIVE (NEGATIVE)
[2017-07-04 14:55] LABS: INR 0.93; PROTHROMBIN TIME 12.6 SECONDS (12.4-14.5)
[2017-07-04 14:56] LABS: PARTIAL THROMBOPLASTIN TIME 29.7 SECONDS (26.8-37.9)
[2017-07-04] MEDS ORDERED: CIPROFLOXACIN 400 MG in APPROPRIATE DILUENT 1 EA IV (15:00)
[2017-07-04 15:11] LABS: ALBUMIN 2.9 GM/DL (3.2-5.2); ALBUMIN/GLOBULIN RATIO 0.78 (1.00-1.93); ALKALINE PHOSPHATASE 116 U/L (45-117); ALT/SGPT 19 U/L (12-78); ANION GAP 6 MEQ/L (8-16); AST/SGOT 15 U/L (7-37); BILIRUBIN,DIRECT < 0.1 MG/DL (0.0-0.2); BILIRUBIN,TOTAL 0.3 MG/DL (0.2-1.0); BLOOD UREA NITROGEN 30 MG/DL (7-18); CALCIUM LEVEL 8.5 MG/DL (8.5-10.1); CARBON DIOXIDE LEVEL 28 MEQ/L (21-32); CHLORIDE LEVEL 108 MEQ/L (98-107); CREATININE FOR GFR 1.48 MG/DL (0.55-1.30); GLOMERULAR FILTRATION RATE 40.2 (>58); GLUCOSE, FASTING 152 MG/DL (70-100); POTASSIUM SERUM 3.7 MEQ/L (3.5-5.1); SODIUM LEVEL 142 MEQ/L (136-145); TOTAL PROTEIN 6.6 GM/DL (6.4-8.2)
[2017-07-04 15:16] LABS: LACTIC ACID SEPSIS PROTOCOL 0.6 MMOL/L (0.4-2.0)
[2017-07-04] MEDS: metroNIDAZOLE 500 MG in APPROPRIATE DILUENT 1 EA IV ×2 (18:33→23:14)
[2017-07-04] MEDS: LR 1,000 ML IV (18:34)
[2017-07-04] MEDS: CIPROFLOXACIN 400 MG in APPROPRIATE DILUENT 1 EA IV (19:57)
[2017-07-04] MEDS: SENOKOT S TAB PO (21:42)
[2017-07-04] MEDS: DOCUSATE SODIUM 100 MG CAP PO (21:42)
[2017-07-04] MEDS: ALPRAZolam 0.5 MG TAB PO (22:41)
[2017-07-04] MEDS: ANEXSIA, NORCO 7.5MG/325MG TABLET(HYDROCODONE/APAP) PO (22:41)
[2017-07-04] MEDS: zolPIDEM TARTRATE 5 MG TAB PO (23:13)
[2017-07-05] MEDS: CIPROFLOXACIN 400 MG in APPROPRIATE DILUENT 1 EA IV ×2 (04:18→18:20)
[2017-07-05] MEDS: LR 1,000 ML IV ×2 (05:26→17:08)
[2017-07-05] MEDS: SODIUM CHLORIDE 0.9% INJ 10 ML SYR IV ×2 (05:26→18:21)
[2017-07-05] MEDS: SENOKOT S TAB PO ×2 (09:13→21:11)
[2017-07-05] MEDS: ROSUVASTATIN 10 MG TAB (CRESTOR) PO (09:13)
[2017-07-05] MEDS: CLOPIDOGREL 75 MG TAB PO (09:13)
[2017-07-05] MEDS: metroNIDAZOLE 500 MG in APPROPRIATE DILUENT 1 EA IV ×2 (09:14→17:08)
[2017-07-05] MEDS: VITAMIN D 1,000 INTERNATIONAL UNITS TABLET PO (09:14)
[2017-07-05] MEDS: TORSEMIDE 20 MG TAB PO (09:14)
[2017-07-05] MEDS: MULTIVITAMINS/MINERALS THERAP 1 TAB PO (09:14)
[2017-07-05] MEDS: DOCUSATE SODIUM 100 MG CAP PO ×2 (09:14→21:11)
[2017-07-05] MEDS: ANEXSIA, NORCO 7.5MG/325MG TABLET(HYDROCODONE/APAP) PO ×3 (09:16→21:12)
[2017-07-05] MEDS: LABETALOL 100 MG TAB PO (11:02)
[2017-07-05] MEDS: zolPIDEM TARTRATE 5 MG TAB PO (21:11)
[2017-07-05] MEDS: ALPRAZolam 0.5 MG TAB PO (21:11)
[2017-07-06] MEDS: metroNIDAZOLE 500 MG in APPROPRIATE DILUENT 1 EA IV ×4 (00:06→23:44)
[2017-07-06] MEDS: CIPROFLOXACIN 400 MG in APPROPRIATE DILUENT 1 EA IV ×2 (05:47→17:31)
[2017-07-06] MEDS: SODIUM CHLORIDE 0.9% INJ 10 ML SYR IV ×2 (05:54→17:32)
[2017-07-06] MEDS: LR 1,000 ML IV (06:00)
[2017-07-06] MEDS: DOCUSATE SODIUM 100 MG CAP PO ×2 (09:44→20:39)
[2017-07-06] MEDS: VITAMIN D 1,000 INTERNATIONAL UNITS TABLET PO (09:44)
[2017-07-06] MEDS: ROSUVASTATIN 10 MG TAB (CRESTOR) PO (09:44)
[2017-07-06] MEDS: TORSEMIDE 20 MG TAB PO (09:44)
[2017-07-06] MEDS: SENOKOT S TAB PO ×2 (09:44→20:39)
[2017-07-06] MEDS: CLOPIDOGREL 75 MG TAB PO (09:44)
[2017-07-06] MEDS: MULTIVITAMINS/MINERALS THERAP 1 TAB PO (09:44)
[2017-07-06] MEDS: ANEXSIA, NORCO 7.5MG/325MG TABLET(HYDROCODONE/APAP) PO ×2 (09:45→17:32)
[2017-07-06] MEDS: LABETALOL 100 MG TAB PO (09:49)
[2017-07-06] MEDS: ALPRAZolam 0.5 MG TAB PO (13:31)
[2017-07-06] MEDS: zolPIDEM TARTRATE 5 MG TAB PO (23:51)
[2017-07-07] MEDS: ANEXSIA, NORCO 7.5MG/325MG TABLET(HYDROCODONE/APAP) PO ×3 (01:39→23:41)
[2017-07-07] MEDS: LR 1,000 ML IV ×3 (01:41→22:24)
[2017-07-07] MEDS: CIPROFLOXACIN 400 MG in APPROPRIATE DILUENT 1 EA IV ×2 (05:04→16:18)
[2017-07-07] MEDS: SODIUM CHLORIDE 0.9% INJ 10 ML SYR IV ×2 (05:04→17:42)
[2017-07-07] MEDS: MULTIVITAMINS/MINERALS THERAP 1 TAB PO (09:54)
[2017-07-07] MEDS: DOCUSATE SODIUM 100 MG CAP PO ×2 (09:58→20:43)
[2017-07-07] MEDS: LABETALOL 100 MG TAB PO (09:58)
[2017-07-07] MEDS: CLOPIDOGREL 75 MG TAB PO (09:59)
[2017-07-07] MEDS: SENOKOT S TAB PO ×2 (09:59→20:43)
[2017-07-07] MEDS: ROSUVASTATIN 10 MG TAB (CRESTOR) PO (09:59)
[2017-07-07] MEDS: TORSEMIDE 20 MG TAB PO (09:59)
[2017-07-07] MEDS: metroNIDAZOLE 500 MG in APPROPRIATE DILUENT 1 EA IV ×3 (10:00→23:40)
[2017-07-07] MEDS: VITAMIN D 1,000 INTERNATIONAL UNITS TABLET PO (10:00)
[2017-07-07] MEDS: zolPIDEM TARTRATE 5 MG TAB PO (22:24)
[2017-07-08] MEDS: CIPROFLOXACIN 400 MG in APPROPRIATE DILUENT 1 EA IV ×2 (04:51→16:27)
[2017-07-08] MEDS: SODIUM CHLORIDE 0.9% INJ 10 ML SYR IV ×2 (05:27→16:27)
[2017-07-08] MEDS: metroNIDAZOLE 500 MG in APPROPRIATE DILUENT 1 EA IV ×3 (09:01→23:28)
[2017-07-08] MEDS: TORSEMIDE 20 MG TAB PO (09:02)
[2017-07-08] MEDS: ROSUVASTATIN 10 MG TAB (CRESTOR) PO (09:02)
[2017-07-08] MEDS: SENOKOT S TAB PO ×2 (09:02→21:57)
[2017-07-08] MEDS: CLOPIDOGREL 75 MG TAB PO (09:02)
[2017-07-08] MEDS: DOCUSATE SODIUM 100 MG CAP PO ×2 (09:02→21:57)
[2017-07-08] MEDS: MULTIVITAMINS/MINERALS THERAP 1 TAB PO (09:02)
[2017-07-08] MEDS: VITAMIN D 1,000 INTERNATIONAL UNITS TABLET PO (09:07)
[2017-07-08] MEDS: LABETALOL 100 MG TAB PO (09:58)
[2017-07-08 11:03] LABS: HEMATOCRIT 33.3 % (36.0-47.0); HEMOGLOBIN 10.9 g/dl (12.0-15.5); MEAN CORPUSCULAR HEMOGLOBIN 28.5 pg (27.0-33.0); MEAN CORPUSCULAR HGB CONC 32.7 g/dl (32.0-36.5); MEAN CORPUSCULAR VOLUME 86.9 fl (80.0-96.0); PLATELET COUNT, AUTOMATED 194 10^3/uL (150-450); RED BLOOD COUNT 3.83 10^6/uL (4.00-5.40); RED CELL DISTRIBUTION WIDTH 14.5 % (11.5-14.5); WHITE BLOOD COUNT 8.9 10^3/uL (4.0-10.0)
[2017-07-08 11:10] LABS: ALBUMIN 2.2 GM/DL (3.2-5.2); ALBUMIN/GLOBULIN RATIO 0.81 (1.00-1.93); ALKALINE PHOSPHATASE 88 U/L (45-117); ALT/SGPT 21 U/L (12-78); ANION GAP 5 MEQ/L (8-16); AST/SGOT 22 U/L (7-37); BILIRUBIN,TOTAL 0.1 MG/DL (0.2-1.0); BLOOD UREA NITROGEN 19 MG/DL (7-18); CALCIUM LEVEL 7.7 MG/DL (8.5-10.1); CARBON DIOXIDE LEVEL 28 MEQ/L (21-32); CHLORIDE LEVEL 110 MEQ/L (98-107); CREATININE FOR GFR 1.13 MG/DL (0.55-1.30); GLOMERULAR FILTRATION RATE 54.9 (>58); GLUCOSE, FASTING 170 MG/DL (70-100); POTASSIUM SERUM 4.2 MEQ/L (3.5-5.1); SODIUM LEVEL 143 MEQ/L (136-145); TOTAL PROTEIN 4.9 GM/DL (6.4-8.2)
[2017-07-08] MEDS: LR 1,000 ML IV ×3 (11:31→23:28)
[2017-07-08] MEDS ORDERED: MIDAZOLAM INJ 5 MG/ML VIAL (J2250) (17:14)
[2017-07-08] MEDS ORDERED: PROPOFOL 200 MG/20 ML VIAL ×2 (17:14→18:58)
[2017-07-08] MEDS ORDERED: fentaNYL 100 MCG/2 ML INJECTION (J3010) (17:14)
[2017-07-08] MEDS: BUPIVACAINE HCL 0.5% 30 ML VIAL As Ordered (19:07)
[2017-07-08] MEDS: LIDOCAINE 1% SDV INJ 30 ML VIAL As Ordered (19:07)
[2017-07-08] MEDS ORDERED: fentaNYL 100 MCG/2 ML INJECTION (J3010) As Ordered (19:17)
[2017-07-08] MEDS ORDERED: PERCOCET 5MG/325MG TAB As Ordered ×2 (19:17→19:58)
[2017-07-08] MEDS: fentaNYL 100 MCG/2 ML INJECTION (J3010) IV ×4 (19:17→19:46)
[2017-07-08] MEDS: PERCOCET 5MG/325MG TAB PO ×2 (19:17→20:00)
[2017-07-08] MEDS ORDERED: ONDANSETRON 4MG/2ML VIAL (J2405) IV (19:30)
[2017-07-09] MEDS: ALPRAZolam 0.5 MG TAB PO (02:04)
[2017-07-09] MEDS: MORPHINE 10 MG/ML 1ML VIAL (J2270) IV (03:20)
[2017-07-09] MEDS: MORPHINE 4 MG/ML 1ML VIAL/SYRINGE (J2270) IV ×4 (03:57→10:11)
[2017-07-09] MEDS: PERCOCET 5MG/325MG TAB PO ×3 (04:25→10:44)
[2017-07-09] MEDS: CIPROFLOXACIN 400 MG in APPROPRIATE DILUENT 1 EA IV ×2 (04:26→16:57)
[2017-07-09] MEDS: SODIUM CHLORIDE 0.9% INJ 10 ML SYR IV ×2 (05:57→16:58)
[2017-07-09] MEDS: metroNIDAZOLE 500 MG in APPROPRIATE DILUENT 1 EA IV ×2 (08:17→15:36)
[2017-07-09] MEDS: VITAMIN D 1,000 INTERNATIONAL UNITS TABLET PO (08:17)
[2017-07-09] MEDS: MULTIVITAMINS/MINERALS THERAP 1 TAB PO (08:17)
[2017-07-09] MEDS: CLOPIDOGREL 75 MG TAB PO (08:17)
[2017-07-09] MEDS: SENOKOT S TAB PO ×2 (08:17→22:11)
[2017-07-09] MEDS: ROSUVASTATIN 10 MG TAB (CRESTOR) PO (08:17)
[2017-07-09] MEDS: TORSEMIDE 20 MG TAB PO (08:17)
[2017-07-09] MEDS: LABETALOL 100 MG TAB PO (08:17)
[2017-07-09] MEDS: DOCUSATE SODIUM 100 MG CAP PO ×2 (08:17→22:11)
[2017-07-09] MEDS ORDERED: ONDANSETRON 4MG/2ML VIAL (J2405) IV (11:00)
[2017-07-09] MEDS ORDERED: EPIDURAL/PCA KEYS XX (11:00)
[2017-07-09] MEDS ORDERED: NALBUPHINE HCL 10 MG/ML AMP (J2300) IV (11:00)
[2017-07-09] MEDS ORDERED: NALOXONE INJ 0.4 MG/1 ML VIAL (J2310) IV (11:00)
[2017-07-09] MEDS: MORPHINE 1MG/ML IN 0.9% NACL 100ML IV BAG IV (13:44)
[2017-07-09] MEDS: LR 1,000 ML IV (14:00)
[2017-07-09] MEDS: ONDANSETRON 4MG/2ML VIAL (J2405) IV (17:52)
[2017-07-10] MEDS: metroNIDAZOLE 500 MG in APPROPRIATE DILUENT 1 EA IV ×3 (01:10→15:57)
[2017-07-10] MEDS: LR 1,000 ML IV ×2 (04:17→16:13)
[2017-07-10] MEDS: CIPROFLOXACIN 400 MG in APPROPRIATE DILUENT 1 EA IV ×2 (05:50→17:08)
[2017-07-10] MEDS: SODIUM CHLORIDE 0.9% INJ 10 ML SYR IV ×3 (06:01→21:27)
[2017-07-10] MEDS: SENOKOT S TAB PO ×2 (08:50→21:05)
[2017-07-10] MEDS: ROSUVASTATIN 10 MG TAB (CRESTOR) PO (08:50)
[2017-07-10] MEDS: DOCUSATE SODIUM 100 MG CAP PO ×2 (08:50→21:05)
[2017-07-10] MEDS: VITAMIN D 1,000 INTERNATIONAL UNITS TABLET PO (08:50)
[2017-07-10] MEDS: TORSEMIDE 20 MG TAB PO (08:51)
[2017-07-10] MEDS: MULTIVITAMINS/MINERALS THERAP 1 TAB PO (08:51)
[2017-07-10] MEDS: CLOPIDOGREL 75 MG TAB PO (08:51)
[2017-07-10] MEDS: LABETALOL 100 MG TAB PO (08:53)
[2017-07-10] MEDS: MORPHINE 1MG/ML IN 0.9% NACL 100ML IV BAG IV (12:21)
[2017-07-10] MEDS: ONDANSETRON 4MG/2ML VIAL (J2405) IV (18:55)
[2017-07-10] MEDS: zolPIDEM TARTRATE 5 MG TAB PO (21:05)
[2017-07-10] MEDS: diphenhydrAMINE INJ 50MG/ML VIAL (J1200) IV (21:19)
[2017-07-11] MEDS: LR 1,000 ML IV ×2 (00:15→16:56)
[2017-07-11] MEDS: metroNIDAZOLE 500 MG in APPROPRIATE DILUENT 1 EA IV ×2 (00:17→08:53)
[2017-07-11] MEDS: CIPROFLOXACIN 400 MG in APPROPRIATE DILUENT 1 EA IV (05:22)
[2017-07-11] MEDS: SODIUM CHLORIDE 0.9% INJ 10 ML SYR IV ×2 (05:45→18:19)
[2017-07-11] MEDS: DOCUSATE SODIUM 100 MG CAP PO ×2 (08:53→21:29)
[2017-07-11] MEDS: VITAMIN D 1,000 INTERNATIONAL UNITS TABLET PO (08:53)
[2017-07-11] MEDS: ROSUVASTATIN 10 MG TAB (CRESTOR) PO (08:53)
[2017-07-11] MEDS: MULTIVITAMINS/MINERALS THERAP 1 TAB PO (08:53)
[2017-07-11] MEDS: TORSEMIDE 20 MG TAB PO (08:54)
[2017-07-11] MEDS: SENOKOT S TAB PO ×2 (08:54→21:29)
[2017-07-11] MEDS: CLOPIDOGREL 75 MG TAB PO (08:54)
[2017-07-11] MEDS: LABETALOL 100 MG TAB PO (08:54)
[2017-07-11] MEDS: diphenhydrAMINE INJ 50MG/ML VIAL (J1200) IV ×3 (09:16→21:29)
[2017-07-11] MEDS: MORPHINE 1MG/ML IN 0.9% NACL 100ML IV BAG IV (19:41)
[2017-07-12] MEDS: diphenhydrAMINE INJ 50MG/ML VIAL (J1200) IV ×3 (02:23→18:07)
[2017-07-12] MEDS: SODIUM CHLORIDE 0.9% INJ 10 ML SYR IV ×4 (05:31→18:07)
[2017-07-12] MEDS: VITAMIN D 1,000 INTERNATIONAL UNITS TABLET PO (07:47)
[2017-07-12] MEDS: DOCUSATE SODIUM 100 MG CAP PO ×2 (07:48→20:12)
[2017-07-12] MEDS: SENOKOT S TAB PO ×2 (07:48→20:12)
[2017-07-12] MEDS: ROSUVASTATIN 10 MG TAB (CRESTOR) PO (07:48)
[2017-07-12] MEDS: MULTIVITAMINS/MINERALS THERAP 1 TAB PO (07:48)
[2017-07-12] MEDS: CLOPIDOGREL 75 MG TAB PO (07:48)
[2017-07-12] MEDS: TORSEMIDE 20 MG TAB PO (07:49)
[2017-07-12] MEDS: LABETALOL 100 MG TAB PO (07:50)
[2017-07-12] MEDS: LR 1,000 ML IV ×2 (08:40→19:34)
[2017-07-12] MEDS: MOM 30ML SUSPENSION UDC PO (08:42)
[2017-07-13] MEDS: MOM 30ML SUSPENSION UDC PO (01:50)
[2017-07-13] MEDS: diphenhydrAMINE INJ 50MG/ML VIAL (J1200) IV ×3 (01:50→18:52)
[2017-07-13] MEDS: MORPHINE 1MG/ML IN 0.9% NACL 100ML IV BAG IV (03:29)
[2017-07-13] MEDS: SODIUM CHLORIDE 0.9% INJ 10 ML SYR IV ×4 (06:38→18:53)
[2017-07-13] MEDS: ROSUVASTATIN 10 MG TAB (CRESTOR) PO (08:52)
[2017-07-13] MEDS: TORSEMIDE 20 MG TAB PO (08:52)
[2017-07-13] MEDS: VITAMIN D 1,000 INTERNATIONAL UNITS TABLET PO (08:52)
[2017-07-13] MEDS: DOCUSATE SODIUM 100 MG CAP PO ×2 (08:52→19:54)
[2017-07-13] MEDS: MULTIVITAMINS/MINERALS THERAP 1 TAB PO (08:52)
[2017-07-13] MEDS: SENOKOT S TAB PO ×2 (08:52→19:54)
[2017-07-13] MEDS: CLOPIDOGREL 75 MG TAB PO (08:52)
[2017-07-13] MEDS: LABETALOL 100 MG TAB PO (08:54)
[2017-07-13] MEDS: LR 1,000 ML IV ×2 (09:01→21:51)
[2017-07-13] MEDS: ONDANSETRON 4MG/2ML VIAL (J2405) IV (13:52)
[2017-07-13] MEDS: zolPIDEM TARTRATE 5 MG TAB PO (21:11)
[2017-07-14] MEDS: ALPRAZolam 0.5 MG TAB PO (01:42)
[2017-07-14] MEDS: diphenhydrAMINE INJ 50MG/ML VIAL (J1200) IV ×4 (01:42→19:24)
[2017-07-14] MEDS: SODIUM CHLORIDE 0.9% INJ 10 ML SYR IV ×2 (05:55→16:56)
[2017-07-14] MEDS: DOCUSATE SODIUM 100 MG CAP PO ×2 (07:54→21:55)
[2017-07-14] MEDS: CLOPIDOGREL 75 MG TAB PO (07:55)
[2017-07-14] MEDS: VITAMIN D 1,000 INTERNATIONAL UNITS TABLET PO (07:55)
[2017-07-14] MEDS: TORSEMIDE 20 MG TAB PO (07:55)
[2017-07-14] MEDS: ROSUVASTATIN 10 MG TAB (CRESTOR) PO (07:55)
[2017-07-14] MEDS: LABETALOL 100 MG TAB PO (07:55)
[2017-07-14] MEDS: MULTIVITAMINS/MINERALS THERAP 1 TAB PO (07:55)
[2017-07-14] MEDS: SENOKOT S TAB PO ×2 (07:56→21:55)
[2017-07-14] MEDS: LR 1,000 ML IV (11:58)
[2017-07-14] MEDS: zolPIDEM TARTRATE 5 MG TAB PO (21:54)
[2017-07-15] MEDS: MORPHINE 1MG/ML IN 0.9% NACL 100ML IV BAG IV (00:24)
[2017-07-15] MEDS: diphenhydrAMINE INJ 50MG/ML VIAL (J1200) IV ×2 (00:42→04:42)
[2017-07-15] MEDS: LR 1,000 ML IV (00:43)
[2017-07-15] MEDS: SODIUM CHLORIDE 0.9% INJ 10 ML SYR IV ×2 (05:20→17:31)
[2017-07-15] MEDS: CLOPIDOGREL 75 MG TAB PO (09:59)
[2017-07-15] MEDS: MULTIVITAMINS/MINERALS THERAP 1 TAB PO (09:59)
[2017-07-15] MEDS: SENOKOT S TAB PO ×2 (09:59→20:14)
[2017-07-15] MEDS: TORSEMIDE 20 MG TAB PO (10:00)
[2017-07-15] MEDS: DOCUSATE SODIUM 100 MG CAP PO ×2 (10:00→20:14)
[2017-07-15] MEDS: ROSUVASTATIN 10 MG TAB (CRESTOR) PO (10:00)
[2017-07-15] MEDS: VITAMIN D 1,000 INTERNATIONAL UNITS TABLET PO (10:01)
[2017-07-15] MEDS: LABETALOL 100 MG TAB PO (10:06)
[2017-07-15] MEDS ORDERED: PERCOCET 5MG/325MG TAB PO (10:45)
[2017-07-15] MEDS: ALPRAZolam 0.5 MG TAB PO (11:21)
[2017-07-15] MEDS: PERCOCET 5MG/325MG TAB PO ×3 (11:23→20:14)
[2017-07-15] MEDS: MORPHINE 4 MG/ML 1ML VIAL/SYRINGE (J2270) IV (22:07)
[2017-07-16] MEDS: PERCOCET 5MG/325MG TAB PO ×4 (00:14→14:20)
[2017-07-16] MEDS: zolPIDEM TARTRATE 5 MG TAB PO (00:17)
[2017-07-16] MEDS: SODIUM CHLORIDE 0.9% INJ 10 ML SYR IV ×2 (05:49→09:18)
[2017-07-16] MEDS: MORPHINE 4 MG/ML 1ML VIAL/SYRINGE (J2270) IV (09:17)
[2017-07-16] MEDS: MULTIVITAMINS/MINERALS THERAP 1 TAB PO (09:24)
[2017-07-16] MEDS: VITAMIN D 1,000 INTERNATIONAL UNITS TABLET PO (09:24)
[2017-07-16] MEDS: CLOPIDOGREL 75 MG TAB PO (09:24)
[2017-07-16] MEDS: SENOKOT S TAB PO (09:24)
[2017-07-16] MEDS: DOCUSATE SODIUM 100 MG CAP PO (09:24)
[2017-07-16] MEDS: TORSEMIDE 20 MG TAB PO (09:25)
[2017-07-16] MEDS: ROSUVASTATIN 10 MG TAB (CRESTOR) PO (09:25)
[2017-07-16] MEDS: LABETALOL 100 MG TAB PO (09:26)
== END 2017-07-16 15:16 | disposition home or self-care (01) | DRG 256 ==
LOC: M MSPAV 07-10 11:29
PROC: 0X610ZZ Detachment at Left Forequarter, Open Approach (ICD-10-PCS; principal; 2017-07-08 08:00)
PROC: 02HV33Z Insertion of Infusion Device into Superior Vena Cava, Percutaneous Approach (ICD-10-PCS; 2017-07-08 18:17)
DX: E11.52 Type 2 diabetes mellitus with diabetic peripheral angiopathy with gangrene (principal); L03.116 Cellulitis of left lower limb; I70.262 Atherosclerosis of native arteries of extremities with gangrene, left leg; E11.21 Type 2 diabetes mellitus with diabetic nephropathy; E11.622 Type 2 diabetes mellitus with other skin ulcer; E66.9 Obesity, unspecified; I12.9 Hypertensive chronic kidney disease with stage 1 through stage 4 chronic kidney disease, or unspecified chronic kidney disease; F41.9 Anxiety disorder, unspecified; F32.9 Major depressive disorder, single episode, unspecified; I25.10 Atherosclerotic heart disease of native coronary artery without angina pectoris; N18.3 Chronic kidney disease, stage 3 (moderate); Z87.891 Personal history of nicotine dependence

== ENCOUNTER → 2017-07-05 | Day surgery (SDC) | payer MEDICARE, MEDICAID ==
[~2017-07-05] MED LIST changes: -BISACODYL 10 MG SUPP PR; +MIDAZOLAM INJ 5 MG/ML VIAL (J2250) As Ordered; +PROPOFOL 200 MG/20 ML VIAL As Ordered; +fentaNYL 100 MCG/2 ML INJECTION (J3010) As Ordered
== END | disposition other institution (70) ==
LOC: M SDC 11:00
DX: M79.672 Pain in left foot (principal)

== ENCOUNTER → 2017-08-29 | Outpatient (REF) | payer MEDICARE, MEDICAID | LOC: M SFHCLERA 11:47 | DX: N39.0 Urinary tract infection, site not specified (principal) | CPT/HCPCS: 87086 ==

== ENCOUNTER → 2017-12-30 | Outpatient (CLI) | payer MEDICARE ==
[2017-12-30 13:28] LABS: HEMATOCRIT 41.2 % (36.0-47.0); HEMOGLOBIN 13.4 g/dl (12.0-15.5); MEAN CORPUSCULAR HEMOGLOBIN 27.9 pg (27.0-33.0); MEAN CORPUSCULAR HGB CONC 32.5 g/dl (32.0-36.5); MEAN CORPUSCULAR VOLUME 85.7 fl (80.0-96.0); PLATELET COUNT, AUTOMATED 234 10^3/uL (150-450); RED BLOOD COUNT 4.81 10^6/uL (4.00-5.40); WHITE BLOOD COUNT 8.7 10^3/uL (4.0-10.0)
[2017-12-30 13:53] LABS: ALBUMIN 2.6 GM/DL (3.2-5.2); ALBUMIN/GLOBULIN RATIO 0.84 (1.00-1.93); ALKALINE PHOSPHATASE 107 U/L (45-117); ALT/SGPT 19 U/L (12-78); ANION GAP 6 MEQ/L (8-16); AST/SGOT 16 U/L (7-37); BILIRUBIN,TOTAL 0.4 MG/DL (0.2-1.0); BLOOD UREA NITROGEN 26 MG/DL (7-18); CALCIUM LEVEL 8.3 MG/DL (8.5-10.1); CARBON DIOXIDE LEVEL 27 MEQ/L (21-32); CHLORIDE LEVEL 112 MEQ/L (98-107); CHOLESTEROL LEVEL 199 MG/DL (<200); CREATININE FOR GFR 1.31 MG/DL (0.55-1.30); FERRITIN 16 NG/ML (8-252); FOLATE 13.7 NG/ML (>5.4); FREE T4 0.98 NG/DL (0.76-1.46); GLOMERULAR FILTRATION RATE 46.1 (>58); GLUCOSE, FASTING 110 MG/DL (70-100); HDL CHOLESTEROL 50 MG/DL (>40); IRON (FE) 68 UG/DL (50-170); LDL CHOLESTEROL 126 MG/DL (<100); NON-HDL-C 149 MG/DL; PERCENT SATURATION 23.4 % (13.2-45.0); POTASSIUM SERUM 4.1 MEQ/L (3.5-5.1); SODIUM LEVEL 145 MEQ/L (136-145); TOTAL IRON BINDING CAPACITY 290 UG/DL (250-450); TOTAL PROTEIN 5.7 GM/DL (6.4-8.2); TRIGLYCERIDES LEVEL 115 MG/DL (<150)
[2017-12-30 14:37] LABS: ESTIMATED AVERAGE GLUCOSE 146 MG/DL (60-110); HEMOGLOBIN A1c 6.7 %
[2017-12-30 15:22] LABS: MAU/CREAT RATIO 4350.8 MCG/MG (0.0-30.0)
[2017-12-30 17:14] LABS: GOLD SPEC TUBE RECIEVED
[2018-01-01 00:11] LABS: Lyme Disease IgG/IgM Antibodie <0.91 ISR (0.00-0.90); Lyme Disease IgM Ab Quantitati <0.80 index (0.00-0.79)
== END ==
LOC: M WUC 10:14
DX: E78.5 Hyperlipidemia, unspecified (principal); E11.65 Type 2 diabetes mellitus with hyperglycemia; Z98.890 Other specified postprocedural states; F41.9 Anxiety disorder, unspecified; L98.9 Disorder of the skin and subcutaneous tissue, unspecified
CPT/HCPCS: 82746

== ENCOUNTER 2018-02-27 10:52 | Inpatient (IN) | payer MEDICARE, MEDICAID ==
[~2018-02-27] VITALS: Ht 162.6 cm; Wt 81.2 kg
[~2018-02-27 10:52] MED LIST changes: +ALPRAZolam 0.5 MG TAB PO SCH; +ASPI81TA85 PO; +BIOT7500 PO; +CALC500T36 PO; +CRAN500C2 PO; +CRES20TA PO; +DEMA20TA6 PO; +DEPA500T2 PO; +FARX1TAB3 PO; +FISH500C PO; +GARL200T2 PO; +HYDR-3716 PO; +HYDR12.55 PO; +INSUDET SC; +LABE10TAB PO; +LABE300T2 PO; +LISI10TA4 PO; +METF500T4 PO; -MIDAZOLAM INJ 5 MG/ML VIAL (J2250) As Ordered; +MIRA3350 PO; +NICO7DIS2 TD; +NORV5TAB PO; +ONDA4TAB6 PO; +PERCOCET PO; +PLAV1TAB2 PO; -PROPOFOL 200 MG/20 ML VIAL As Ordered; +REGL5TAB2 PO; +SIMV20TA2 PO; +SIMV40TA2 PO; +TORS20TA2 PO; +VITA1DRO SL; +VITA20008 PO; +VITA500064 PO; +VITMTA PO; +XANA0.5T PO; +ZEST1TAB3 PO; +[UNRECOGNIZED DRUG - CODE] PO; -fentaNYL 100 MCG/2 ML INJECTION (J3010) As Ordered
[2018-02-27] MEDS ORDERED: SITA50TAB PO (11:04)
[2018-02-27] MEDS ORDERED: ACET160S5 PO (11:05)
[2018-02-27 11:50] LABS: BASO % 0.2 % (0.0-1.0); EOS % 0.1 % (0.0-3.0); HEMATOCRIT 39.3 % (36.0-47.0); HEMOGLOBIN 12.4 g/dl (12.0-15.5); LYMPH # 1.2 10^3/uL (1.5-4.5); MEAN CORPUSCULAR HEMOGLOBIN 27.8 pg (27.0-33.0); MEAN CORPUSCULAR HGB CONC 31.6 g/dl (32.0-36.5); MEAN CORPUSCULAR VOLUME 88.1 fl (80.0-96.0); MONO # 1.3 10^3/uL (0.0-0.8); MONO % 12.6 % (0.0-5.0); NEUTROPHILS # 7.7 10^3/uL (1.8-7.7); NEUTROPHILS % 74.6 % (36.0-66.0); PLATELET COUNT, AUTOMATED 222 10^3/uL (150-450); RED BLOOD COUNT 4.46 10^6/uL (4.00-5.40); WHITE BLOOD COUNT 10.3 10^3/uL (4.0-10.0)
[2018-02-27 12:11] LABS: ERYTHROCYTE SEDIMENTATION RATE 58 mm/hr (0-20)
[2018-02-27 12:26] LABS: ALBUMIN 2.4 GM/DL (3.2-5.2); BILIRUBIN,TOTAL 0.4 MG/DL (0.2-1.0); C REACTIVE PROTEIN QUANTITATIV 13.1 MG/DL (0.00-0.30); CALCIUM LEVEL 8.1 MG/DL (8.5-10.1); CREATININE FOR GFR 2.06 MG/DL (0.55-1.30); GLOMERULAR FILTRATION RATE 27.4 (>58); POTASSIUM SERUM 4.1 MEQ/L (3.5-5.1); TOTAL PROTEIN 6.8 GM/DL (6.4-8.2)
[2018-02-27] MEDS ORDERED: NS 1,000 ML IV ONE (12:45)
[2018-02-27] MEDS ORDERED: ACETAMINOPHEN TAB 650MG DOSE (2X325MG) PO ONE (12:45)
[2018-02-27] MEDS ORDERED: ALPR0.5T3 PO (13:20)
[2018-02-27] MEDS ORDERED: SPIR-10 PO (13:20)
[2018-02-27] MEDS ORDERED: ACET1TAB55 PO (13:20)
[2018-02-27] MEDS ORDERED: HYDR-4514 PO (13:20)
[2018-02-27] MEDS ORDERED: ONDANSETRON 4MG/2ML VIAL (J2405) IV PRN (13:45)
--- NOTE | 2018-02-27 13:59 | REP ---
CT study of the left foot and ankle without contrast: History: Swelling. Comparison radiographs of the left foot are from October 07, 2015. Technique: Helical scanning is acquired. 2 mm axial images are reformatted. Coronal and sagittal MPR images are included. CT findings: In the interval since the prior radiographs, the patient has undergone transmetatarsal amputation of digits 1-5. There is intertarsal joint. The midfoot osteoarthritis. Plantar and Achilles calcaneal spurring is noted. There is some mild ankle joint spurring. There is periosteal reaction at the osteotomy sites of the distal metatarsals, most pronounced in the second and third distal metatarsal osteotomy sites. There is diffuse forefoot swelling. No definite fluid collection is seen. Sesamoid bones remain in place at the volar aspect of the distal first metatarsal. No soft tissue gas is seen. Impression: Transmetatarsal amputation of the digits 1-5. Diffuse soft tissue swelling. Periosteal reaction distal aspect of the second and third metatarsals. No soft tissue gas or acute bony erosive change. Electronically Signed by Gavino Sloan MD 02/27/2018 03:11 P
--- NOTE | 2018-02-27 15:42 | HPEPDOC ---
General Date of Admission 02/27/18 Attending Physician: Jorge aHrris MD Chief Complaint The patient is a 47-year-old female admitted with a reason for visit of Foot Pain. History of Present Illness A 46-year-old female with PMH significant for HTN, DM, CAD/CABG x3, Kidney disease with renal insufficiency and PVD presents to ER with Lt stump foot pain, purulent drainage and fever. Pt has previously undergone a right femoral to popliteal artery bypass graft after angioplasty and stenting of the right lower extremity which occluded. Patient has also undergone left superficial femoral artery angioplasty. The patient had deformity of her second, third, fourth and fifth toes in her left foot and has developed ulcers on the toes due to the deformation and difficulty with footwear secondary to her left first toe amputation. Patient is also developed an ulcer at the left first toe amputation site which is recurrent. Patient was admitted to the hospital with cellulitis of her left foot and underwent antibiotic therapy and then subsequently a left transmetatarsal amputation. Patient has followed up for a nonhealing plantar surface ulcer and deformity of the toes with pain. Patient underwent a left transmetatarsal amputation on July 08, 2017. Patient notes pain in her left transmetatarsal amputation stump that got worse with serous drainage. Patient was seen by Dr Harris on Saturday. Dr Harris recommended patient f/u in 2 weeks. While changing the dressing on Saturday, patient noticed a copious cheese like silly string coming from the ulcer in the plantar surface with no odor, and this was followed by dark red blood. On Saturday, patient was referred to Dr Sharma for wound care with an appointment scheduled to 04/04/17. Patient started running fever and chills with Temp 100.3 in the evening. Patient believed she has cellulitis and she went to ER yesterday. Lab WBC 10.3, Cr 2.06, CRP 13.1, Lactic acid 1.4. CT scan shows Diffuse soft tissue swelling. Periosteal reaction distal aspect of the second and third metatarsals. No soft tissue gas or acute bony erosive change. Dr Harris of vascular surgery was consulted and patient was admitted to hospital for IV antibiotics treatment. Home Medications Scheduled Biotin (Vitamin H) (Biotin Maximum) 10,000 Mcg Tab, 10,000 MCG PO DAILY, (Reported) Clopidogrel Bisulfate (Plavix) 75 Mg Tab, 75 MG PO DAILY, (Reported) Cyanocobalamin (B-12) 500 Mcg Tab, 500 MCG PO DAILY, (Reported) Labetalol HCl (Labetalol HCl) 100 Mg Tab, 100 MG PO DAILY, (Reported) Multivitamins *[facility] STOCKED* (Thera M Plus *[facility] STOCKED*) 1 Tab Tab, 1 TAB PO ROSS LY, (Reported) Rosuvastatin Calcium (Crestor) 20 Mg Tab, 20 MG PO DAILY, (Reported) Sitagliptin (Januvia) 50 Mg Tab, 50 MG PO DAILY, (Reported) Spironolactone (Spironolactone) 25 Mg Tab, 25 MG PO DAILY, (Reported) Torsemide (Torsemide) 20 Mg Tab, 20 MG PO DAILY, (Reported) Scheduled PRN (Hydrocodone Bitartrate/AC 7.5-325 mg) 1 Tab Tab, 1 TAB PO TID PRN for PAIN, (Reported) Acetaminophen (Acetaminophen) 325 Mg Tab, 325 MG PO for PAIN / FEVER, (Reported) Alprazolam (Alprazolam) 0.5 Mg Tab, 0.5 MG PO DAILY PRN for ANXIETY, (Reported) Allergies Coded Allergies: Doxycycline (Verified Allergy, Severe, SWELLING OF MOUTH AND TONGUE, 11/23/14) SWELLING BEGAN ONE HOUR AFTER FIRST DOSE Penicillins (Verified Allergy, Severe, Anaphylactic, 11/09/14) Amoxicillin (Verified Allergy, Intermediate, Hives, 02/27/18) TAPE (Verified Allergy, Intermediate, SKIN BREAKS OUT, 02/27/18) Pregabalin (Verified Adverse Reaction, Intermediate, Suicidal, 02/27/18) Gabapentin (Verified Adverse Reaction, Mild, Confusion, 02/27/18) Metformin (Verified Adverse Reaction, Mild, N/V, 02/27/18) Past Medical History Medical History 1. Hypertension 2. Diabetes 3. PVD 4. Heart Disease 5. Kidney Disease 6. Uterine Cancer 7. Anxiety 8. Depression Surgical History 1. Heart Stents - 17 2. Heart Triple Bypass, Breast Reduction, Daniel-en-Y Gastric Bypass 3. Foot Surgery - AMPUTATION LEFT GREAT TOE 4. Stent - RIGHT LEG 5. Angioplasty - BLE 6. Hysterectomy 7. Left transmetatarsal amputation - (07/08/2017) 8. Left lower extremity angiogram - (01/03/2017) 9. Left lower extremity angiogram with angioplasty and atherectomy - (02/19/2017) Atherectomy and angioplasty of the superficial femoral and popliteal arteries 10 Right femoral to above-knee popliteal artery bypass graft - (12/27/2016) Family History Significant Family History: Diabetes, Heart disease, Hypertension Social History * Smoker: former Smoker (20+ PKY before quit in 2014) Alcohol: Denies Drugs: denies Review of Systems Constitutional: Denies: Chills, Fever, Night Sweats Eyes: Denies: Pain, Vision change ENT: Denies: Head Aches, Ear Pain, Dysphagia Skin: Denies: Rash, Lesions, Breakdown Pulmonary: Denies: Dyspnea, Cough Cardiovascular: Denies: Chest Pain, Palpitations, Orthopnea, Paroxysmal Noc. Dyspnea, Lt Headedness Gastrointestinal: Denies: Nausea, Vomiting, Abdominal Pain, Diarrhea Genitourinary: Denies: Dysuria, Frequency, Incontinence, Retention Hematologic: Denies: Bruising, Bleeding Excessively Musculoskeletal: Denies: Neck Pain, Back Pain, Joint Pain, Muscle Pain, Spasms Neurological: Denies: Weakness, Numbness, Change in speech, Confusion Psych: Reports: Mood Normal; Denies: Depression, Memory Issues Other systems See HPI Physical Examination General Exam: Positive: Alert, Moderate Distress Eye Exam: Positive: PERRLA, Conjunctiva & lids normal ENT Exam: Positive: Atraumatic Neck Exam: Positive: Supple, +2 carotid pulse wo bruit Chest Exam: Positive: Clear to auscultation, Normal air movement; Negative: Rales, Rhonchi, Wheezing, Diminished, Other Heart Exam: Positive: Rate Normal, Regular Rhythm, Normal S1, Normal S2; Negative: Gallops, Murmurs, Rubs, Other Abdomen Exam: Positive: Normal bowel sounds, BS Hypoactive, Soft; Negative: Tenderness, Mass, Other Extremity Exam: Positive: Edema (Lt stump foot swelling, mildly erythematous and tender to touch. There is a 0.5 x0.5 x0.2 cm deep ulcer with a white pinhole in the center, no drainage appreciated. There is about 3 cm whiteish surrounding area around the ulcer which is very tender.), Normal pulses (2+ b/l); Negative: Clubbing, Cyanosis, Tenderness, Swelling, Other Neuro Exam: Positive: Normal Speech, Strength at 5/5 X4 ext, Cranial Nerves 3- 12 NL Psych Exam: Positive: Mood NL, Anxiety, Oriented x 3 Vital Signs Vital Signs Date Time Temp Pulse Resp B/P (MAP) Pulse Ox O2 Delivery O2 Flow Rate FiO2 02/27/18 13:41 100.8 02/27/18 13:22 81 97 02/27/18 12:46 140/65 (90) 02/27/18 10:52 20 Room Air Laboratory Data Labs 24H Laboratory Tests 2 02/27/18 11:33: Immature Granulocyte % (Auto) 0.5, White Blood Count 10.3H, Red Blood Count 4.46, Hemoglobin 12.4, Hematocrit 39.3, Mean Corpuscular Volume 88.1, Mean Corpuscular Hemoglobin 27.8, Mean Corpuscular Hemoglobin Concent 31.6L, Red Cell Distribution Width 13.2, Platelet Count 222, Neutrophils (%) (Auto) 74.6H, Lymphocytes (%) (Auto) 12.0L, Monocytes (%) (Auto) 12.6H, Eosinophils (%) (Auto) 0.1, Basophils (%) (Auto) 0.2, Neutrophils # (Auto) 7.7, Lymphocytes # (Auto) 1.2L, Monocytes # (Auto) 1.3H, Eosinophils # (Auto) 0.0, Basophils # (Auto) 0.0, Nucleated Red Blood Cells % (auto) 0.0, Erythrocyte Sedimentation Rate 58H, Anion Gap 5L, Glomerular Filtration Rate 27.4L, Lactic Acid Level 1.4, Blood Urea Nitrogen 24H, Creatinine 2.06H, Sodium Level 141, Potassium Level 4.1, Chloride Level 107, Carbon Dioxide Level 29, Calcium Level 8.1L, Aspartate Amino Transf (AST/SGOT) 12, Alanine Aminotransferase (ALT/SGPT) 13, Alkaline Phosphatase 100, Total Bilirubin 0.4, Total Protein 6.8, Albumin 2.4L, C- Reactive Protein, Quantitative 13.10H, Albumin/Globulin Ratio 0.55L CBC/BMP Laboratory Tests 02/27/18 11:33 Red Blood Count 4.46, Mean Corpuscular Volume 88.1, Mean Corpuscular Hemoglobin 27.8, Mean Corpuscular Hemoglobin Concent 31.6 L, Red Cell Distribution Width 13.2, Neutrophils (%) (Auto) 74.6 H, Lymphocytes (%) (Auto) 12.0 L, Monocytes (%) (Auto) 12.6 H, Eosinophils (%) (Auto) 0.1, Basophils (%) (Auto) 0.2, Ne utrophils # (Auto) 7.7, Lymphocytes # (Auto) 1.2 L, Monocytes # (Auto) 1.3 H, Eosinophils # (Auto) 0.0, Basophils # (Auto) 0.0, Calcium Level 8.1 L, Aspartate Amino Transf (AST/SGOT) 12, Alanine Aminotransferase (ALT/SGPT) 13, Alkaline Phosphatase 100, Total Bilirubin 0.4, Total Protein 6.8, Albumin 2.4 L Microbiology Microbiology 02/27/18 Blood Culture, Received Pending 02/27/18 Blood Culture, Received Pending Assessment/Plan 1. Lt stump foot cellulitis with possible abscess in distal medial plantar. 2. S/p Lt TMA 1-5 3. BLE PVD 4. DM 5. HTN 6. CAD 7. CHF 8. MAICO Plan / VTE VTE Prophylaxis Ordered?: Yes Plan Plan Cipro 400 mg IV q24 hrs Clindamycin 600 mg IV q8hrs CBC with diff + BMP daily ADA diet Bedrest. NATALIE RAIN PA-C Feb 27, 2018 15:42
[2018-02-27 15:55] LABS: CALCIUM LEVEL 7.7 MG/DL (8.5-10.1); CREATININE FOR GFR 1.86 MG/DL (0.55-1.30); GLOMERULAR FILTRATION RATE 30.8 (>58)
[2018-02-27] MEDS: CIPROFLOXACIN 400 MG in APPROPRIATE DILUENT 1 EA IV SCH (16:08)
[2018-02-27] MEDS: ACETAMINOPHEN TAB 650MG DOSE (2X325MG) PO PRN (17:07)
[2018-02-27 17:25] VITALS: BP 166/77
[2018-02-27] MEDS: CLINDAMYCIN 600 MG in APPROPRIATE DILUENT 1 EA IV SCH (17:33)
[2018-02-27] MEDS: NORCO, ANEXSIA 5/325MG TABLET (HYDROcodone/ACETAMINOPHEN) PO PRN (19:30)
[2018-02-27 22:00] VITALS: BP 117/55
[2018-02-28] MEDS: CLINDAMYCIN 600 MG in APPROPRIATE DILUENT 1 EA IV SCH ×3 (01:02→20:21)
[2018-02-28] MEDS: NORCO, ANEXSIA 5/325MG TABLET (HYDROcodone/ACETAMINOPHEN) PO PRN ×5 (01:03→22:08)
[2018-02-28 05:58] LABS: BASO % 0.2 % (0.0-1.0); EOS # 0.1 10^3/uL (0.0-0.50); EOS % 0.8 % (0.0-3.0); HEMATOCRIT 32.6 % (36.0-47.0); HEMOGLOBIN 10.6 g/dl (12.0-15.5); LYMPH # 1.5 10^3/uL (1.5-4.5); LYMPH % 14.7 % (24.0-44.0); MEAN CORPUSCULAR HEMOGLOBIN 28.2 pg (27.0-33.0); MEAN CORPUSCULAR HGB CONC 32.5 g/dl (32.0-36.5); MEAN CORPUSCULAR VOLUME 86.7 fl (80.0-96.0); MONO # 1.5 10^3/uL (0.0-0.8); MONO % 14.6 % (0.0-5.0); NEUTROPHILS # 6.9 10^3/uL (1.8-7.7); NEUTROPHILS % 69.3 % (36.0-66.0); PLATELET COUNT, AUTOMATED 179 10^3/uL (150-450); RED BLOOD COUNT 3.76 10^6/uL (4.00-5.40)
[2018-02-28 06:00] VITALS: BP 139/67
[2018-02-28] MEDS ORDERED: PIPERACILLIN/TAZOBACTAM SOD 3.375 GM in D5W MINI-BAG PLUS 50 ML IV SCH (09:00)
[2018-02-28] MEDS ORDERED: GLUCAGON FOR INJ 1 MG VIAL (J1610) SC PRN (10:30)
[2018-02-28] MEDS ORDERED: DEXTROSE 50% 50 ML SYRINGE IV PRN (10:30)
[2018-02-28] MEDS ORDERED: GLUCOSE 4 GM CHEW TABLET PO PRN (10:30)
[2018-02-28] MEDS: CLOPIDOGREL 75 MG TAB PO SCH (10:56)
[2018-02-28] MEDS: TORSEMIDE 20 MG TAB PO SCH (10:56)
[2018-02-28] MEDS: ALPRAZolam 0.5 MG TAB PO PRN (10:56)
[2018-02-28] MEDS: SPIRONOLACTONE 25 MG TAB PO SCH (10:56)
[2018-02-28] MEDS: ROSUVASTATIN 10 MG TAB (CRESTOR) PO SCH (10:57)
[2018-02-28] MEDS: LABETALOL 100 MG TAB PO SCH (10:57)
[2018-02-28] MEDS ORDERED: B-12500T2 PO (11:27)
--- NOTE | 2018-02-28 12:09 | IPNPDOC ---
Subjective Date Seen The patient was seen on 02/28/18. Subjective Chief Complaint/HPI Lt stump foot pain and swelling improved, serous drainage from the plantar ulcer. Dr. Sharma rec MRI to r/o osteomyelitis as per pt. Objective Physical Examination General Exam: Positive: Alert, Moderate Distress Eye Exam: Positive: PERRLA, Conjunctiva & lids normal ENT Exam: Positive: Atraumatic Neck Exam: Positive: Supple, +2 carotid pulse wo bruit Chest Exam: Positive: Clear to auscultation, Normal air movement; Negative: Rales, Rhonchi, Wheezing, Diminished, Other Heart Exam: Positive: Rate Normal, Regular Rhythm, Normal S1, Normal S2; Negative: Gallops, Murmurs, Rubs, Other Abdomen Exam: Positive: Normal bowel sounds, BS Hypoactive, Soft; Negative: Tenderness, Mass, Other Extremity Exam: Positive: Edema (Lt foot stump swelling and pain improved, with serous and minimal pus like drainage from the center of the ulcer.), Normal pulses (2+ b/l); Negative: Clubbing, Cyanosis, Tenderness, Swelling, Other Neuro Exam: Positive: Normal Speech, Strength at 5/5 X4 ext, Cranial Nerves 3- 12 NL Psych Exam: Positive: Mood NL, Anxiety, Oriented x 3 Assessment /Plan Assessment 1. Lt foot stump Cellulitis with plantar ulcer /abscess Afebrile, pain and edema were improved. minimal pus like drainage appreciated 2. DM 3. HTN 4. CAD /CABG 5. CHF 6. MAICO Plan/VTE VTE Prophylaxis Ordered?: Yes Plan Continue IV Cipro and IV clindamycin. Restart home med. Change dressing daily and prn. MRI Lt foot to r/o osteomyelitis. VS, I&O, 24H, Fishbone Vital Signs/I&O Vital Signs Date Time Temp Pulse Resp B/P (MAP) Pulse Ox O2 Delivery O2 Flow Rate FiO2 02/28/18 10:57 21 02/28/18 06:00 98.2 72 139/67 (91) 96 Room Air I&O- Last 24 Hours up to 6 AM 02/28/18 06:00 Intake Total 870 ml Output Total 600 ml Balance 270 ml Laboratory Data 24H LABS Laboratory Tests 2 02/27/18 15:17: Anion Gap 7L, Glomerular Filtration Rate 30.8L, Blood Urea Nitrogen 25H, Creatinine 1.86H, Sodium Level 141, Potassium Level 4.0, Chloride Level 108H, Carbon Dioxide Level 26, Calcium Level 7.7L 02/28/18 05:20: Immature Granulocyte % (Auto) 0.4, White Blood Count 10.0, Red Blood Count 3.76L, Hemoglobin 10.6L, Hematocrit 32.6L, Mean Corpuscular Volume 86.7, Mean Corpuscular Hemoglobin 28.2, Mean Corpuscular Hemoglobin Concent 32.5, Red Cell Distribution Width 13.5, Platelet Count 179, Neutrophils (%) (Auto) 69.3H, Lymphocytes (%) (Auto) 14.7L, Monocytes (%) (Auto) 14.6H, Eosinophils (%) (Auto) 0.8, Basophils (%) (Auto) 0.2, Neutrophils # (Auto) 6.9, Lymphocytes # (Auto) 1.5, Monocytes # (Auto) 1.5H, Eosinophils # (Auto) 0.1, Basophils # (Auto) 0.0, Nucleated Red Blood Cells % (auto) 0.0 CBC/BMP Laboratory Tests 02/27/18 15:17 Calcium Level 7.7 L 02/28/18 05:20 Red Blood Count 3.76 L, Mean Corpuscular Volume 86.7, Mean Corpuscular Hemoglobin 28.2, Mean Corpuscular Hemoglobin Concent 32.5, Red Cell Distribution Width 13.5, Neutrophils (%) (Auto) 69.3 H, Lymphocytes (%) (Auto) 14.7 L, Monocytes (%) (Auto) 14.6 H, Eosinophils (%) (Auto) 0.8, Basophils (%) (Auto) 0.2, Neutrophils # (Auto) 6.9, Lymphocytes # (Auto) 1.5, Monocytes # (Auto) 1.5 H, Eosinophils # (Auto) 0.1, Basophils # (Auto) 0.0 Microbiology Microbiology 02/27/18 Blood Culture - Preliminary, Resulted No growth after 24 hours . All specim... 02/27/18 Blood Culture - Preliminary, Resulted No growth after 24 hours . All specim... NATALIE RAIN PA-C Feb 28, 2018 12:09
[2018-02-28] MEDS: CYANOCOBALAMIN 500 MCG TAB PO SCH (12:49)
[2018-02-28] MEDS: HumaLOG INSULIN (NovoLOG) PER UNIT SC SCH ×3 (12:51→21:00)
[2018-02-28 14:00] VITALS: BP 122/69
[2018-02-28] MEDS ORDERED: ALPRAZolam 0.5 MG TAB PO ONE (16:00)
[2018-02-28] MEDS: CIPROFLOXACIN 400 MG in APPROPRIATE DILUENT 1 EA IV SCH (16:51)
[2018-02-28 22:00] VITALS: BP 132/65
[2018-03-01] MEDS: CLINDAMYCIN 600 MG in APPROPRIATE DILUENT 1 EA IV SCH ×3 (00:13→17:00)
[2018-03-01] MEDS: NORCO, ANEXSIA 5/325MG TABLET (HYDROcodone/ACETAMINOPHEN) PO PRN ×4 (00:14→20:53)
[2018-03-01 06:00] VITALS: BP 132/65
[2018-03-01] MEDS: HumaLOG INSULIN (NovoLOG) PER UNIT SC SCH ×4 (07:30→20:52)
[2018-03-01] MEDS: CLOPIDOGREL 75 MG TAB PO SCH (08:45)
[2018-03-01] MEDS: CYANOCOBALAMIN 500 MCG TAB PO SCH (08:46)
[2018-03-01] MEDS: LABETALOL 100 MG TAB PO SCH (08:46)
[2018-03-01] MEDS: TORSEMIDE 20 MG TAB PO SCH (08:46)
[2018-03-01] MEDS: ROSUVASTATIN 10 MG TAB (CRESTOR) PO SCH (08:46)
[2018-03-01] MEDS: SPIRONOLACTONE 25 MG TAB PO SCH (08:46)
[2018-03-01] MEDS ORDERED: CYANOCOBALAMIN 500 MCG TAB PO SCH (09:00)
[2018-03-01] MEDS ORDERED: INFLUENZA QUADRIVALENT PF VACCINE 0.5ML SYRINGE (90686) IM ONE (09:00)
[2018-03-01] MEDS: ACETAMINOPHEN TAB 650MG DOSE (2X325MG) PO PRN (11:24)
[2018-03-01 14:00] VITALS: BP 137/67
[2018-03-01] MEDS: ALPRAZolam 0.5 MG TAB PO PRN (14:14)
[2018-03-01] MEDS: CIPROFLOXACIN 400 MG in APPROPRIATE DILUENT 1 EA IV SCH (15:55)
[2018-03-01 22:00] VITALS: BP 130/63
[2018-03-01] MEDS ORDERED: LIDOCAINE 2% INJ 100 MG/5 ML SDV (FOR ANES.) As Ordered ONE (23:26)
[2018-03-01] MEDS ORDERED: fentaNYL 100 MCG/2 ML INJECTION (J3010) As Ordered ONE (23:26)
[2018-03-01] MEDS ORDERED: MIDAZOLAM INJ 2 MG/2 ML VIAL (J2250) As Ordered ONE (23:26)
[2018-03-01] MEDS ORDERED: PROPOFOL 200 MG/20 ML VIAL As Ordered ONE (23:27)
[2018-03-01 23:45] VITALS: BP_SYST 114; BP_SYST 116; BP_DIAS 59; BP_DIAS 65
[2018-03-02] VITALS (7 sets, daily range): BP systolic 122–146; BP diastolic 58–70
[2018-03-02] MEDS: CLINDAMYCIN 600 MG in APPROPRIATE DILUENT 1 EA IV SCH ×3 (01:04→17:43)
[2018-03-02] MEDS: NORCO, ANEXSIA 5/325MG TABLET (HYDROcodone/ACETAMINOPHEN) PO PRN ×4 (03:16→22:06)
[2018-03-02] MEDS: HumaLOG INSULIN (NovoLOG) PER UNIT SC SCH ×4 (08:39→21:00)
[2018-03-02] MEDS: LABETALOL 100 MG TAB PO SCH (08:39)
[2018-03-02] MEDS: CLOPIDOGREL 75 MG TAB PO SCH (08:39)
[2018-03-02] MEDS: SPIRONOLACTONE 25 MG TAB PO SCH (08:40)
[2018-03-02] MEDS: TORSEMIDE 20 MG TAB PO SCH (08:40)
[2018-03-02] MEDS: CYANOCOBALAMIN 500 MCG TAB PO SCH (08:40)
[2018-03-02] MEDS: ROSUVASTATIN 10 MG TAB (CRESTOR) PO SCH (08:40)
[2018-03-02] MEDS: ACETAMINOPHEN TAB 650MG DOSE (2X325MG) PO PRN (12:47)
[2018-03-02] MEDS: ALPRAZolam 0.5 MG TAB PO PRN (14:10)
[2018-03-02] MEDS: CIPROFLOXACIN 400 MG in APPROPRIATE DILUENT 1 EA IV SCH (16:20)
[2018-03-03] MEDS: CLINDAMYCIN 600 MG in APPROPRIATE DILUENT 1 EA IV SCH ×2 (02:23→09:31)
[2018-03-03] MEDS: NORCO, ANEXSIA 5/325MG TABLET (HYDROcodone/ACETAMINOPHEN) PO PRN ×2 (04:45→10:58)
[2018-03-03 06:00] VITALS: BP 146/72
[2018-03-03] MEDS: HumaLOG INSULIN (NovoLOG) PER UNIT SC SCH (07:30)
[2018-03-03] MEDS: CYANOCOBALAMIN 500 MCG TAB PO SCH (09:32)
[2018-03-03] MEDS: ROSUVASTATIN 10 MG TAB (CRESTOR) PO SCH (09:32)
[2018-03-03] MEDS: SPIRONOLACTONE 25 MG TAB PO SCH (09:32)
[2018-03-03] MEDS: TORSEMIDE 20 MG TAB PO SCH (09:32)
[2018-03-03] MEDS: CLOPIDOGREL 75 MG TAB PO SCH (09:32)
[2018-03-03 09:33] VITALS: BP 146/72
[2018-03-03] MEDS: LABETALOL 100 MG TAB PO SCH (09:33)
[2018-03-03] MEDS ORDERED: CIPR-249 PO (11:29)
[2018-03-03] MEDS ORDERED: CLEO300C2 PO (11:30)
--- NOTE | 2018-04-07 08:46 | RO ---
DATE OF PROCEDURE: 03/01/2018 PREOPERATIVE DIAGNOSES: Superficial femoral arterial atherosclerotic occlusive disease. Tibioperoneal arterial atherosclerotic occlusive disease. Diabetes mellitus. New nonhealing left transmetatarsal amputation stump ulceration. History of tobacco use. Left foot cellulitis. POSTOPERATIVE DIAGNOSES Superficial femoral arterial atherosclerotic occlusive disease. Tibioperoneal arterial atherosclerotic occlusive disease. Diabetes mellitus. New nonhealing left transmetatarsal amputation stump ulceration. History of tobacco use Left foot cellulitis. PROCEDURE: Excisional debridement of skin, subcutaneous tissue muscle and bone from the left transmetatarsal amputation ulcer. SURGEON: Dr. Bi Harris. BUSPERSON: None. ANESTHESIA: Monitored anesthesia care (MAC). ESTIMATED BLOOD LOSS: 5 mL IV FLUIDS: 50 mL. HEPARIN: None. COMPLICATIONS: None. DRAINS: None. SPECIMENS: None. INPLANTS: None. INDICATION: The patient is a 47-year-old female with diabetes mellitus, chronic renal insufficiency and previous left 1st toe amputation with deformity of the remaining toes who subsequently underwent a left transmetatarsal amputation. The patient had heel amputation stump well and has developed a new ulcer on the plantar surface of the left transmetatarsal amputation stump in the mid line of the stump. The patient will undergo debridement. The procedure was described and explained to the patient in detail including drawing of pictures demonstrating the procedure and the pertinent anatomy. Risks, benefits, alternative options were discussed with the patient. Alternative treatment options included but were not limited to no intervention. Risks included but were not limited to infection, bleeding, possible need for further open surgical intervention, possible need for higher level of amputation, renal failure requiring hemodialysis, adverse reaction to the prepping and draping materials, adverse reaction to the anesthesia and/or local anesthetic, cerebrovascular accident, myocardial infarction, pulmonary embolus, deep venous thrombosis (DVT), possible need for transfusion of blood products, loss of limb, loss of life, poor outcome, poor results and poor satisfaction. The patient's questions were answered. The patient voices acceptance and understanding of these risks, benefits and alternative options. Risks of not performing the procedure include worsening the size of the ulceration and risks of infection with possible limb loss or life loss. No promises or guarantees were made to the patient regarding the procedure and/or outcome. WOUND DESCRIPTION: The wound measures approximately 1 cm width x 1 cm in length and is approximately 1 cm in depth. DESCRIPTION OF PROCEDURE: The patient was taken the operating room, placed supine on the operating table and prepped and draped in standard surgical fashion. The time out was conducted by myself and the team members in the room confirming the correct patient, procedure and laterality. The debrider was then performed with a scalpel and pickups for removal of all nonviable skin, subcutaneous tissue and muscle. The bone was cut with a rongeur back to healthy bone. There was no signs of osteomyelitis within the bone that was removed. The bone was trimmed back due to concerns for the pressure from the metatarsal causing the ulceration. Dressings were then applied after the wound was irrigated. The patient tolerated the procedure well. All instrument, sponge and needle counts were correct at the end the case. There were no complications. Dr. Harris was present for and directed the entire case. The patient was transferred to the recovery room awake, alert, extubated and in stable condition. The procedure and results and findings were discussed with the patient in the recovery room with all of her questions answered.
--- NOTE | 2018-05-08 07:24 | DSES ---
DATE OF ADMISSION: 02/27/2018 DATE OF DISCHARGE: 03/03/2018 PROCEDURES PERFORMED DURING HOSPITALIZATION: Left foot wound debridement. HOSPITAL ADMITTING DIAGNOSES: 1. Diabetes mellitus. 2. Peripheral vascular disease. 3. Diabetic foot ulcer, left foot. DISCHARGE DIAGNOSES: 1. Diabetes mellitus. 2. Peripheral vascular disease. 3. Diabetic foot ulcer, left foot. HOSPITAL COURSE: The patient was admitted and started on IV antibiotics due to cellulitis of the left foot and subsequently underwent debridement of the left diabetic foot ulcer. The patient stabilized and cellulitis resolved. The patient will require further debridement but wishes to be discharged home for the holidays and will return once Tisha has passed. The patient will be discharged on oral antibiotics. The patient will be readmitted March 05 for further debridement of her left foot.
== END 2018-03-03 12:15 | disposition home or self-care (01) | DRG 464 ==
LOC: M ED 10:52 → M ED INP 15:53 → EEVIPCON 15:53 → M MS5PR 17:10
PROVIDERS: ADMIT Surgery Vascular Surgery; ATTEND Surgery Vascular Surgery
PROC: 0KBW0ZZ Excision of Left Foot Muscle, Open Approach (ICD-10-PCS; 2018-03-01)
PROC: 0QBP0ZZ Excision of Left Metatarsal, Open Approach (ICD-10-PCS; 2018-03-01)
PROC: 0JBR0ZZ Excision of Left Foot Subcutaneous Tissue and Fascia, Open Approach (ICD-10-PCS; principal; 2018-03-01 14:33)
DX: T87.44 Infection of amputation stump, left lower extremity (principal); L03.116 Cellulitis of left lower limb; N17.9 Acute kidney failure, unspecified; E11.622 Type 2 diabetes mellitus with other skin ulcer; Y83.5 Amputation of limb(s) as the cause of abnormal reaction of the patient, or of later complication, without mention of misadventure at the time of the procedure; I11.0 Hypertensive heart disease with heart failure; I25.10 Atherosclerotic heart disease of native coronary artery without angina pectoris; Z95.1 Presence of aortocoronary bypass graft; E11.51 Type 2 diabetes mellitus with diabetic peripheral angiopathy without gangrene; Z79.899 Other long term (current) drug therapy; Z88.0 Allergy status to penicillin; Z88.8 Allergy status to other drugs, medicaments and biological substances; I70.25 Atherosclerosis of native arteries of other extremities with ulceration; F32.9 Major depressive disorder, single episode, unspecified; F41.9 Anxiety disorder, unspecified; Z85.42 Personal history of malignant neoplasm of other parts of uterus; Z95.2 Presence of prosthetic heart valve; I50.9 Heart failure, unspecified

== ENCOUNTER 2018-03-07 12:19 | Inpatient (IN) | payer MEDICARE, MEDICAID ==
[~2018-03-07] VITALS: Ht 162.6 cm; Wt 82.3 kg
[2018-03-07] VITALS (7 sets, daily range): BP systolic 120–167; BP diastolic 60–92
[~2018-03-07 12:19] MED LIST changes: +ACET160S5 PO; +ACET1TAB55 PO; +ALPR0.5T3 PO; -ALPRAZolam 0.5 MG TAB PO SCH; +B-12500T2 PO; +CIPR-249 PO; +CLEO300C2 PO; +HYDR-4514 PO; +SITA50TAB PO; +SPIR-10 PO
[2018-03-07] MEDS: CLINDAMYCIN 900 MG in APPROPRIATE DILUENT 1 EA IV SCH ×2 (13:00→22:45)
[2018-03-07 13:29] LABS: BASO # 0.1 10^3/uL (0.0-0.2); BASO % 0.4 % (0.0-1.0); EOS # 0.5 10^3/uL (0.0-0.50); EOS % 4.3 % (0.0-3.0); HEMATOCRIT 38.6 % (36.0-47.0); HEMOGLOBIN 12.4 g/dl (12.0-15.5); LYMPH # 2.1 10^3/uL (1.5-4.5); LYMPH % 18.2 % (24.0-44.0); MEAN CORPUSCULAR HEMOGLOBIN 27.9 pg (27.0-33.0); MEAN CORPUSCULAR HGB CONC 32.1 g/dl (32.0-36.5); MEAN CORPUSCULAR VOLUME 86.7 fl (80.0-96.0); MONO % 9.1 % (0.0-5.0); NEUTROPHILS # 7.7 10^3/uL (1.8-7.7); NEUTROPHILS % 66.8 % (36.0-66.0); PLATELET COUNT, AUTOMATED 404 10^3/uL (150-450); RED BLOOD COUNT 4.45 10^6/uL (4.00-5.40); WHITE BLOOD COUNT 11.5 10^3/uL (4.0-10.0)
[2018-03-07 13:53] LABS: CALCIUM LEVEL 8.6 MG/DL (8.5-10.1); CREATININE FOR GFR 2.06 MG/DL (0.55-1.30); GLOMERULAR FILTRATION RATE 27.4 (>58); POTASSIUM SERUM 4.6 MEQ/L (3.5-5.1)
[2018-03-07] MEDS: CIPROFLOXACIN 400 MG in APPROPRIATE DILUENT 1 EA IV SCH (17:00)
[2018-03-07] MEDS: LR 1,000 ML IV SCH ×2 (17:00→20:37)
--- NOTE | 2018-03-07 17:38 | IPNPDOC ---
Text Note Date of Service The patient was seen on 03/07/18. NOTE Patient was admitted for Lt foot stump cellulitis with possible abscess on 04/30/17. Patient was treated with IV Cipro and clindamycin. Patient was recommended for debridement after Tisha since patient requests to go home for Tisha. Patient was discharged home on 03/03/18. She came back today for Lt stump foot debridement and wound vac placement. Patient does not have new complaint. Please refer to my H&P written on 02/27/18 for detail. PMH, PSH, SH: please see the H&P on 02/27/18 for detail. ROS: 14 systems reviewed and were negative except those listed in HPI Physical exam: Gen: AAO x3 no acute distress HEENT: NCAD, ARMAND, EOMI Neck: Supple, no carotid bruits Lungs: CTAB, no R/R/W Heart: RRR, no G/M/R, PP: 2+ b/l Abd: BS nl, NT/ND, no pulsatile mass Ext: No C/C/E. LLE: s/p TMA, medial plantar abscess with constant serous drainage A/P: Lt stump foot cellulitis with plantar abscess Continue Clindamycin 900 mg IV q8 hrs Continue Cipro 400 mg q12 hrs Proceed with debridement and wound vac placement today. VS,Fishbone, I+O VS, Fishbone, I+O Laboratory Tests 03/07/18 13:16 Red Blood Count 4.45, Mean Corpuscular Volume 86.7, Mean Corpuscular Hemoglobin 27.9, Mean Corpuscular Hemoglobin Concent 32.1, Red Cell Distribution Width 13.0, Neutrophils (%) (Auto) 66.8 H, Lymphocytes (%) (Auto) 18.2 L, Monocytes (%) (Auto) 9.1 H, Eosinophils (%) (Auto) 4.3 H, Basophils (%) (Auto) 0.4, Neut rophils # (Auto) 7.7, Lymphocytes # (Auto) 2.1, Monocytes # (Auto) 1.0 H, Eosinophils # (Auto) 0.5, Basophils # (Auto) 0.1, Calcium Level 8.6 Vital Signs Date Time Temp Pulse Resp B/P (MAP) Pulse Ox O2 Delivery O2 Flow Rate FiO2 03/07/18 14:00 98.8 65 18 144/68 (91) 97 Room Air NATALIE RAIN PA-C Mar 07, 2018 17:38
[2018-03-07] MEDS ORDERED: GLUCOSE 4 GM CHEW TABLET PO PRN (18:00)
[2018-03-07] MEDS ORDERED: NORCO, ANEXSIA 5/325MG TABLET (HYDROcodone/ACETAMINOPHEN) PO ONE (18:00)
[2018-03-07] MEDS ORDERED: GLUCAGON FOR INJ 1 MG VIAL (J1610) SC PRN (18:00)
[2018-03-07] MEDS ORDERED: DEXTROSE 50% 50 ML SYRINGE IV PRN (18:00)
[2018-03-07] MEDS ORDERED: PROPOFOL 200 MG/20 ML VIAL As Ordered ONE (18:43)
[2018-03-07] MEDS ORDERED: LIDOCAINE 2% INJ 100 MG/5 ML SDV (FOR ANES.) As Ordered ONE (18:43)
[2018-03-07] MEDS ORDERED: fentaNYL 100 MCG/2 ML INJECTION (J3010) As Ordered ONE ×2 (18:44→20:02)
[2018-03-07] MEDS ORDERED: MIDAZOLAM INJ 2 MG/2 ML VIAL (J2250) As Ordered ONE (18:44)
[2018-03-07] MEDS ORDERED: LIDOCAINE 1% SDV INJ 30 ML VIAL As Ordered ONE (19:13)
[2018-03-07] MEDS ORDERED: BUPIVACAINE HCL 0.5% 30 ML VIAL As Ordered ONE (19:13)
[2018-03-07] MEDS ORDERED: PERCOCET 5MG/325MG TAB As Ordered ONE ×2 (20:02→20:36)
[2018-03-07] MEDS ORDERED: ONDANSETRON 4MG/2ML VIAL (J2405) As Ordered ONE (20:02)
[2018-03-07] MEDS: fentaNYL 100 MCG/2 ML INJECTION (J3010) IV PRN ×4 (20:10→20:30)
[2018-03-07] MEDS ORDERED: ONDANSETRON 4MG/2ML VIAL (J2405) IV PRN ×2 (20:15→23:45)
[2018-03-07] MEDS ORDERED: PERCOCET 5MG/325MG TAB PO PRN ×2 (20:15→23:45)
[2018-03-07] MEDS ORDERED: LR 1,000 ML IV SCH ×2 (20:15→23:45)
[2018-03-07] MEDS: HumaLOG INSULIN (NovoLOG) PER UNIT SC SCH (21:00)
[2018-03-07] MEDS ORDERED: CLEO300C2 PO (21:31)
[2018-03-07] MEDS ORDERED: CIPR500T3 PO (21:31)
[2018-03-07] MEDS ORDERED: fentaNYL 100 MCG/2 ML INJECTION (J3010) IV PRN (23:45)
[2018-03-08] MEDS ORDERED: ALPRAZolam 0.5 MG TAB PO PRN (00:30)
[2018-03-08] MEDS: MORPHINE 4 MG/ML 1ML VIAL/SYRINGE (J2270) IV PRN ×7 (00:40→21:46)
[2018-03-08 00:45] VITALS: BP 128/66
[2018-03-08 02:00] VITALS: BP 138/72
[2018-03-08] MEDS: LR 1,000 ML IV SCH ×3 (03:51→20:37)
[2018-03-08] MEDS: CIPROFLOXACIN 400 MG in APPROPRIATE DILUENT 1 EA IV SCH ×2 (03:51→15:50)
[2018-03-08] MEDS: CLINDAMYCIN 900 MG in APPROPRIATE DILUENT 1 EA IV SCH ×3 (05:42→20:34)
[2018-03-08 06:00] VITALS: BP 150/73
[2018-03-08] MEDS: HumaLOG INSULIN (NovoLOG) PER UNIT SC SCH ×4 (07:30→20:39)
[2018-03-08] MEDS: CLOPIDOGREL 75 MG TAB PO SCH (09:00)
[2018-03-08] MEDS: ROSUVASTATIN 10 MG TAB (CRESTOR) PO SCH (09:00)
[2018-03-08] MEDS: SPIRONOLACTONE 25 MG TAB PO SCH (09:00)
[2018-03-08] MEDS: MULTIVITAMINS/MINERALS THERAP 1 TAB PO SCH (09:00)
[2018-03-08] MEDS: SITagliptin 50 MG TAB (JANUVIA) PO SCH (09:00)
[2018-03-08] MEDS: CYANOCOBALAMIN 500 MCG TAB PO SCH (09:00)
[2018-03-08] MEDS: TORSEMIDE 20 MG TAB PO SCH (09:01)
[2018-03-08] MEDS: LABETALOL 100 MG TAB PO SCH (09:03)
[2018-03-08 14:00] VITALS: BP 122/58
[2018-03-08] MEDS: PERCOCET 5MG/325MG TAB PO PRN ×2 (15:55→20:35)
[2018-03-08] MEDS: ONDANSETRON 4MG/2ML VIAL (J2405) IV PRN (20:46)
[2018-03-08 22:00] VITALS: BP 119/56
[2018-03-09] MEDS: MORPHINE 4 MG/ML 1ML VIAL/SYRINGE (J2270) IV PRN ×7 (00:36→22:35)
[2018-03-09] MEDS: PERCOCET 5MG/325MG TAB PO PRN ×4 (04:31→18:56)
[2018-03-09] MEDS: CIPROFLOXACIN 400 MG in APPROPRIATE DILUENT 1 EA IV SCH ×2 (04:31→15:56)
[2018-03-09] MEDS: LR 1,000 ML IV SCH ×3 (04:34→19:57)
[2018-03-09] MEDS: CLINDAMYCIN 900 MG in APPROPRIATE DILUENT 1 EA IV SCH ×3 (05:59→19:57)
[2018-03-09 06:00] VITALS: BP 127/61
[2018-03-09] MEDS: HumaLOG INSULIN (NovoLOG) PER UNIT SC SCH ×4 (07:30→19:58)
[2018-03-09] MEDS: ROSUVASTATIN 10 MG TAB (CRESTOR) PO SCH (08:59)
[2018-03-09] MEDS: SPIRONOLACTONE 25 MG TAB PO SCH (08:59)
[2018-03-09] MEDS: CLOPIDOGREL 75 MG TAB PO SCH (09:00)
[2018-03-09] MEDS: TORSEMIDE 20 MG TAB PO SCH (09:00)
[2018-03-09] MEDS: SITagliptin 50 MG TAB (JANUVIA) PO SCH (09:00)
[2018-03-09] MEDS: MULTIVITAMINS/MINERALS THERAP 1 TAB PO SCH (09:00)
[2018-03-09] MEDS: CYANOCOBALAMIN 500 MCG TAB PO SCH (09:01)
[2018-03-09] MEDS: LABETALOL 100 MG TAB PO SCH (09:01)
[2018-03-09 14:00] VITALS: BP 148/72
[2018-03-09 22:00] VITALS: BP 138/65
[2018-03-10] MEDS: PERCOCET 5MG/325MG TAB PO PRN ×4 (01:16→17:22)
[2018-03-10] MEDS: LR 1,000 ML IV SCH ×3 (04:01→20:54)
[2018-03-10] MEDS: MORPHINE 4 MG/ML 1ML VIAL/SYRINGE (J2270) IV PRN ×7 (04:01→23:25)
[2018-03-10] MEDS: CIPROFLOXACIN 400 MG in APPROPRIATE DILUENT 1 EA IV SCH ×2 (04:01→15:55)
[2018-03-10] MEDS: CLINDAMYCIN 900 MG in APPROPRIATE DILUENT 1 EA IV SCH ×3 (05:50→20:54)
[2018-03-10 06:00] VITALS: BP 142/65
[2018-03-10] MEDS: HumaLOG INSULIN (NovoLOG) PER UNIT SC SCH ×4 (07:29→21:00)
[2018-03-10] MEDS: SPIRONOLACTONE 25 MG TAB PO SCH (08:10)
[2018-03-10] MEDS: CYANOCOBALAMIN 500 MCG TAB PO SCH (08:10)
[2018-03-10] MEDS: TORSEMIDE 20 MG TAB PO SCH (08:10)
[2018-03-10] MEDS: LABETALOL 100 MG TAB PO SCH (08:10)
[2018-03-10] MEDS: ROSUVASTATIN 10 MG TAB (CRESTOR) PO SCH (08:11)
[2018-03-10] MEDS: CLOPIDOGREL 75 MG TAB PO SCH (08:11)
[2018-03-10] MEDS: MULTIVITAMINS/MINERALS THERAP 1 TAB PO SCH (08:11)
[2018-03-10] MEDS: SITagliptin 50 MG TAB (JANUVIA) PO SCH (08:11)
[2018-03-10 12:25] LABS: BASO % 0.3 % (0.0-1.0); EOS # 0.4 10^3/uL (0.0-0.50); EOS % 3.9 % (0.0-3.0); HEMATOCRIT 34.8 % (36.0-47.0); LYMPH # 2.2 10^3/uL (1.5-4.5); LYMPH % 23.4 % (24.0-44.0); MEAN CORPUSCULAR HEMOGLOBIN 27.7 pg (27.0-33.0); MEAN CORPUSCULAR HGB CONC 31.6 g/dl (32.0-36.5); MEAN CORPUSCULAR VOLUME 87.7 fl (80.0-96.0); MONO # 1.1 10^3/uL (0.0-0.8); NEUTROPHILS # 5.6 10^3/uL (1.8-7.7); NEUTROPHILS % 59.4 % (36.0-66.0); PLATELET COUNT, AUTOMATED 266 10^3/uL (150-450); RED BLOOD COUNT 3.97 10^6/uL (4.00-5.40); WHITE BLOOD COUNT 9.5 10^3/uL (4.0-10.0)
--- NOTE | 2018-03-10 13:17 | IPNPDOC ---
Subjective Date Seen The patient was seen on 03/10/18. Subjective Chief Complaint/HPI The pain in Left foot has improved and was afebrile. Objective Physical Examination General Exam: Positive: Alert, No Acute Distress Eye Exam: Positive: PERRLA, EOMI ENT Exam: Positive: Atraumatic Neck Exam: Positive: Supple, +2 carotid pulse wo bruit Chest Exam: Positive: Clear to auscultation, Normal air movement; Negative: Rales, Rhonchi, Wheezing, Diminished, Other Heart Exam: Positive: Rate Normal, Regular Rhythm, Normal S1, Normal S2; Negative: Gallops, Murmurs, Rubs, Other Abdomen Exam: Positive: Normal bowel sounds, Soft; Negative: Tenderness, Mass, Hernia, Other Extremity Exam: Positive: Edema (Lt stumped foot swelling, no erythema with wound vac in place, sluggish mild to mod drainage per pt. ); Negative: Clubbing, Cyanosis, Normal pulses, Tenderness, Swelling, Other Neuro Exam: Positive: Strength at 5/5 X4 ext, Cranial Nerves 3-12 NL Psych Exam: Positive: Mental status NL, Mood NL, Oriented x 3 Assessment /Plan Assessment 1. POD #3, s/p debridement of the plantar wound/abcess in Lt stump foot, on wound vac. Continually improving, afebrile. 2. Type II DM 3. Renal insufficiency Cr 2.06 03/07 Plan/VTE VTE Prophylaxis Ordered?: Yes Plan 1. Continue current management for DM. 2. Continue IV clindamycin and IV Cipro as directed. 3. Continue wound care with wound vac. 4. Repeat CBC +diff. 5. Repeat BMP daily. 6. Consider renal consultation if Cr worsens. Case discussed with Dr Harris. VS, I&O, 24H, Fishbone Vital Signs/I&O Vital Signs Date Time Temp Pulse Resp B/P (MAP) Pulse Ox O2 Delivery O2 Flow Rate FiO2 03/10/18 12:51 18 Room Air 03/10/18 08:10 64 138/71 03/10/18 06:00 99.4 95 03/07/18 19:54 3 I&O- Last 24 Hours up to 6 AM 03/10/18 06:00 Intake Total 3710 ml Output Total 2000 ml Balance 1710 ml Laboratory Data 24H LABS Laboratory Tests 2 03/09/18 17:01: Bedside Glucose (Misc Panel) 160H 03/09/18 19:58: Bedside Glucose (Misc Panel) 106H 03/10/18 06:11: Bedside Glucose (Misc Panel) 127H 03/10/18 11:22: Bedside Glucose (Misc Panel) 124H 03/10/18 12:14: Immature Granulocyte % (Auto) 1.0, White Blood Count 9.5, Red Blood Count 3.97L, Hemoglobin 11.0L, Hematocrit 34.8L, Mean Corpuscular Volume 87.7, Mean Corpuscular Hemoglobin 27.7, Mean Corpuscular Hemoglobin Concent 31.6L, Red Cell Distribution Width 12.8, Platelet Count 266, Neutrophils (%) (Auto) 59.4, Lymphocytes (%) (Auto) 23.4L, Monocytes (%) (Auto) 12.0H, Eosinophils (%) (Auto) 3.9H, Basophils (%) (Auto) 0.3, Neutrophils # (Auto) 5.6, Lymphocytes # (Auto) 2.2, Monocytes # (Auto) 1.1H, Eosinophils # (Auto) 0.4, Basophils # (Auto) 0.0, Nucleated Red Blood Cells % (auto) 0.0 03/10/18 12:51: CBC/BMP Laboratory Tests 03/10/18 12:14 Red Blood Count 3.97 L, Mean Corpuscular Volume 87.7, Mean Corpuscular Hemoglobin 27.7, Mean Corpuscular Hemoglobin Concent 31.6 L, Red Cell Distribution Width 12.8, Neutrophils (%) (Auto) 59.4, Lymphocytes (%) (Auto) 23.4 L, Monocytes (%) (Auto) 12.0 H, Eosinophils (%) (Auto) 3.9 H, Basophils (%) (Auto) 0.3, Neutrophils # (Auto) 5.6, Lymphocytes # (Auto) 2.2, Monocytes # (Auto) 1.1 H, Eosinophils # (Auto) 0.4, Basophils # (Auto) 0.0 Microbiology Microbiology 03/07/18 Gram Stain - Final, Complete 03/07/18 Bacterial Culture - Final, Complete Staphylococcus Epidermidis NATALIE RAIN PA-C Mar 10, 2018 13:17
[2018-03-10 13:40] LABS: CALCIUM LEVEL 8.2 MG/DL (8.5-10.1); CREATININE FOR GFR 2.16 MG/DL (0.55-1.30); GLOMERULAR FILTRATION RATE 25.9 (>58); POTASSIUM SERUM 4.3 MEQ/L (3.5-5.1)
[2018-03-10 14:00] VITALS: BP 138/70
[2018-03-10] MEDS: ONDANSETRON 4MG/2ML VIAL (J2405) IV PRN (21:04)
[2018-03-10 22:00] VITALS: BP 131/64
[2018-03-11] MEDS: PERCOCET 5MG/325MG TAB PO PRN ×5 (00:50→23:31)
[2018-03-11] MEDS: MORPHINE 4 MG/ML 1ML VIAL/SYRINGE (J2270) IV PRN ×4 (02:19→20:46)
[2018-03-11] MEDS: CIPROFLOXACIN 400 MG in APPROPRIATE DILUENT 1 EA IV SCH ×2 (04:11→16:47)
[2018-03-11] MEDS: LR 1,000 ML IV SCH ×3 (04:37→20:28)
[2018-03-11] MEDS: CLINDAMYCIN 900 MG in APPROPRIATE DILUENT 1 EA IV SCH ×3 (05:27→20:47)
[2018-03-11 06:00] VITALS: BP 109/54
[2018-03-11 07:15] LABS: CALCIUM LEVEL 8.1 MG/DL (8.5-10.1); CREATININE FOR GFR 1.96 MG/DL (0.55-1.30); POTASSIUM SERUM 4.3 MEQ/L (3.5-5.1)
[2018-03-11] MEDS: HumaLOG INSULIN (NovoLOG) PER UNIT SC SCH ×4 (07:30→20:28)
[2018-03-11] MEDS: SPIRONOLACTONE 25 MG TAB PO SCH (08:56)
[2018-03-11] MEDS: CYANOCOBALAMIN 500 MCG TAB PO SCH (08:56)
[2018-03-11] MEDS: MULTIVITAMINS/MINERALS THERAP 1 TAB PO SCH (08:56)
[2018-03-11] MEDS: ROSUVASTATIN 10 MG TAB (CRESTOR) PO SCH (08:56)
[2018-03-11] MEDS: SITagliptin 50 MG TAB (JANUVIA) PO SCH (08:56)
[2018-03-11] MEDS: TORSEMIDE 20 MG TAB PO SCH (08:57)
[2018-03-11] MEDS: CLOPIDOGREL 75 MG TAB PO SCH (08:57)
[2018-03-11] MEDS: LABETALOL 100 MG TAB PO SCH (08:57)
[2018-03-11 14:00] VITALS: BP 116/59
[2018-03-11 22:00] VITALS: BP 151/70
[2018-03-12] MEDS: MORPHINE 4 MG/ML 1ML VIAL/SYRINGE (J2270) IV PRN ×6 (01:32→23:59)
[2018-03-12] MEDS: LR 1,000 ML IV SCH (04:55)
[2018-03-12] MEDS: CIPROFLOXACIN 400 MG in APPROPRIATE DILUENT 1 EA IV SCH (04:55)
[2018-03-12] MEDS: PERCOCET 5MG/325MG TAB PO PRN ×4 (04:56→20:32)
[2018-03-12] MEDS: CLINDAMYCIN 900 MG in APPROPRIATE DILUENT 1 EA IV SCH ×2 (05:54→12:40)
[2018-03-12 06:00] VITALS: BP 131/62
[2018-03-12] MEDS: HumaLOG INSULIN (NovoLOG) PER UNIT SC SCH ×4 (07:30→20:37)
[2018-03-12] MEDS: ROSUVASTATIN 10 MG TAB (CRESTOR) PO SCH (09:17)
[2018-03-12] MEDS: TORSEMIDE 20 MG TAB PO SCH (09:19)
[2018-03-12] MEDS: LABETALOL 100 MG TAB PO SCH (09:19)
[2018-03-12] MEDS: MULTIVITAMINS/MINERALS THERAP 1 TAB PO SCH (09:20)
[2018-03-12] MEDS: CYANOCOBALAMIN 500 MCG TAB PO SCH (09:20)
[2018-03-12] MEDS: SPIRONOLACTONE 25 MG TAB PO SCH (09:20)
[2018-03-12] MEDS: CLOPIDOGREL 75 MG TAB PO SCH (09:20)
[2018-03-12] MEDS: SITagliptin 50 MG TAB (JANUVIA) PO SCH (09:20)
[2018-03-12 12:24] LABS: HEMATOCRIT 32.6 % (36.0-47.0); HEMOGLOBIN 10.6 g/dl (12.0-15.5); MEAN CORPUSCULAR HEMOGLOBIN 27.7 pg (27.0-33.0); MEAN CORPUSCULAR HGB CONC 32.5 g/dl (32.0-36.5); MEAN CORPUSCULAR VOLUME 85.1 fl (80.0-96.0); PLATELET COUNT, AUTOMATED 237 10^3/uL (150-450); RED BLOOD COUNT 3.83 10^6/uL (4.00-5.40)
[2018-03-12 13:03] LABS: CALCIUM LEVEL 8.4 MG/DL (8.5-10.1); CREATININE FOR GFR 1.91 MG/DL (0.55-1.30); GLOMERULAR FILTRATION RATE 29.9 (>58); POTASSIUM SERUM 4.6 MEQ/L (3.5-5.1)
[2018-03-12 14:00] VITALS: BP 135/68
--- NOTE | 2018-03-12 15:09 | IPNPDOC ---
Subjective Date Seen The patient was seen on 03/12/18. Subjective Chief Complaint/HPI Doing well, no c/o, inquiring dc plan. Objective Physical Examination General Exam: Positive: Alert, No Acute Distress Eye Exam: Positive: PERRLA, EOMI ENT Exam: Positive: Atraumatic Neck Exam: Positive: Supple, +2 carotid pulse wo bruit Chest Exam: Positive: Clear to auscultation, Normal air movement; Negative: Rales, Rhonchi, Wheezing, Diminished, Other Heart Exam: Positive: Rate Normal, Regular Rhythm, Normal S1, Normal S2; Negative: Gallops, Murmurs, Rubs, Other Abdomen Exam: Positive: Normal bowel sounds, Soft; Negative: Tenderness, Mass, Hernia, Other Extremity Exam: Positive: Edema (Lt stumped foot swelling, mild to mod tender but no erythema with wound vac in place, wound is clean and deep with serous/serosanguinous drainage. no purulent discharge), Tenderness; Negative: Clubbing, Cyanosis, Normal pulses, Swelling, Other Neuro Exam: Positive: Strength at 5/5 X4 ext, Cranial Nerves 3-12 NL Psych Exam: Positive: Mental status NL, Mood NL, Oriented x 3 Assessment /Plan Assessment 1. S/p debridement of Lt stumped foot wound. Wound is clean deep w/o Sx/S infection. Wound Cx with a few Staph epi resistant to Clindamycin. 2. DM II 3. Renal insufficiency improved Cr 1.91 vs 1.96 Plan/VTE VTE Prophylaxis Ordered?: Yes Plan Continue wound care with wound vac MWF DC IV Clindamycin + IV Cipro Start Bactrim 800-160mg 1 tab bid Planing to DC home tomorrow with wound vac VS, I&O, 24H, Fishbone Vital Signs/I&O Vital Signs Date Time Temp Pulse Resp B/P (MAP) Pulse Ox O2 Delivery O2 Flow Rate FiO2 03/12/18 14:09 20 03/12/18 09:22 60 139/66 03/12/18 06:00 97.3 94 Room Air 03/07/18 19:54 3 I&O- Last 24 Hours up to 6 AM 03/12/18 06:00 Intake Total 2540 ml Output Total 2800 ml Balance -260 ml Laboratory Data 24H LABS Laboratory Tests 2 03/11/18 16:49: Bedside Glucose (Misc Panel) 187H 03/11/18 20:04: Bedside Glucose (Misc Panel) 89 03/12/18 05:51: Bedside Glucose (Misc Panel) 168H 03/12/18 11:18: Bedside Glucose (Misc Panel) 105 03/12/18 12:10: Nucleated Red Blood Cells % (auto) 0.0, Anion Gap 8, Glomerular Filtration Rate 29.9L, Blood Urea Nitrogen 22H, Creatinine 1.91H, Sodium Level 141, Potassium Level 4.6, Chloride Level 108H, Carbon Dioxide Level 25, Calcium Level 8.4L CBC/BMP Laboratory Tests 03/12/18 12:10 Red Blood Count 3.83 L, Mean Corpuscular Volume 85.1, Mean Corpuscular Hemoglobin 27.7, Mean Corpuscular Hemoglobin Concent 32.5, Red Cell Distribution Width 12.9, Calcium Level 8.4 L Microbiology Microbiology 03/07/18 Gram Stain - Final, Complete 03/07/18 Bacterial Culture - Final, Complete Staphylococcus Epidermidis NATALIE RAIN PA-C Mar 12, 2018 15:09
[2018-03-12] MEDS: BACTRIM 160MG/800MG DS TAB PO SCH (20:32)
[2018-03-12 22:00] VITALS: BP 127/59
[2018-03-12] MEDS: ONDANSETRON 4MG/2ML VIAL (J2405) IV PRN (23:59)
[2018-03-13] MEDS: MORPHINE 4 MG/ML 1ML VIAL/SYRINGE (J2270) IV PRN (05:45)
[2018-03-13 06:00] VITALS: BP 145/69
[2018-03-13] MEDS: PERCOCET 5MG/325MG TAB PO PRN ×3 (06:23→17:25)
[2018-03-13] MEDS: HumaLOG INSULIN (NovoLOG) PER UNIT SC SCH ×2 (07:30→13:03)
[2018-03-13] MEDS: CLOPIDOGREL 75 MG TAB PO SCH (08:25)
[2018-03-13] MEDS: SITagliptin 50 MG TAB (JANUVIA) PO SCH (08:25)
[2018-03-13] MEDS: CYANOCOBALAMIN 500 MCG TAB PO SCH (08:25)
[2018-03-13] MEDS: BACTRIM 160MG/800MG DS TAB PO SCH ×2 (08:25→17:25)
[2018-03-13] MEDS: SPIRONOLACTONE 25 MG TAB PO SCH (08:25)
[2018-03-13] MEDS: ROSUVASTATIN 10 MG TAB (CRESTOR) PO SCH (08:25)
[2018-03-13] MEDS: TORSEMIDE 20 MG TAB PO SCH (08:25)
[2018-03-13] MEDS: MULTIVITAMINS/MINERALS THERAP 1 TAB PO SCH (08:25)
[2018-03-13 08:27] VITALS: BP 137/65
[2018-03-13] MEDS: LABETALOL 100 MG TAB PO SCH (08:27)
[2018-03-13 14:00] VITALS: BP 127/64
[2018-03-13] MEDS ORDERED: SULF1TAB93 PO (14:16)
--- NOTE | 2018-03-13 14:28 | IPNPDOC ---
Text Note Date of Service The patient was seen on 03/13/18. NOTE Pt is doing well, afebrile, ready to go home. PE: VSS afebrile Lungs: CTAB Heart: RRR, PP: 2+ b/l Abd: BS nl, NT/ND Ext: no C/C/E, Lt foot bridged wound vac in place with minimal drainage, no Sx/S infection A/p: Will DC home health with wound vac in place today. Bactrim DS 800-160 mg bid x 45 days Wound vac change MWF by visit RN F/u with Dr Harris in 7-10 days VS,Fishbone, I+O VS, Fishbone, I+O Vital Signs Date Time Temp Pulse Resp B/P (MAP) Pulse Ox O2 Delivery O2 Flow Rate FiO2 03/13/18 14:00 98.5 65 18 127/64 (85) 95 03/13/18 06:00 Room Air 03/07/18 19:54 3 I&O- Last 24 Hours up to 6 AM 03/13/18 05:59 Intake Total 3360 ml Output Total 2000 ml Balance 1360 ml NATALIE RAIN PA-C Mar 13, 2018 14:28
--- NOTE | 2018-03-13 14:30 | DS.PDOC ---
Discharge Summary General Date of Admission Mar 07, 2018 at 12:51 Date of Discharge 03/13/2018 Attending Physician: Jorge Harris MD Discharge Summary PROCEDURES PERFORMED DURING STAY: Debridement of nonhealing wound in Lt stump foot ADMITTING DIAGNOSES: 1. Lt stump foot cellulitis with possible abscess in distal medial plantar. 2. S/p Lt TMA 1-5 3. BLE PVD 4. DM II 5. HTN 6. CAD 7. Chronic CHF 8. MAICO DISCHARGE DIAGNOSES: Same above COMPLICATIONS/CHIEF COMPLAINT: Debridement And Wound Vac Placement. HISTORY OF PRESENT ILLNESS: A 46-year-old female with PMH significant for HTN, DM, CAD/CABG x3, Kidney disease with renal insufficiency and PVD presents to ER with Lt stump foot pain, purulent drainage and fever. Pt has previously undergone a right femoral to popliteal artery bypass graft after angioplasty and stenting of the right lower extremity which occluded. Patient has also undergone left superficial femoral artery angioplasty. The patient had deformity of her second, third, fourth and fifth toes in her left foot and has developed ulcers on the toes due to the deformation and difficulty with footwear secondary to her left first toe amputation. Patient is also developed an ulcer at the left first toe amputation site which is recurrent. Patient was admitted to the hospital with cellulitis of her left foot and underwent antibiotic therapy and then subsequently a left transmetatarsal amputation. Patient has followed up for a nonhealing plantar surface ulcer and deformity of the toes with pain. Patient underwent a left transmetatarsal amputation on July 08, 2017. Patient notes pain in her left transmetatarsal amputation stump that got worse with serous drainage. Patient was seen by Dr Harris on Saturday. Dr Harris recommended patient f/u in 2 weeks. While changing the dressing on Saturday, patient noticed a copious cheese like silly string coming from the ulcer in the plantar surface with no odor, and this was followed by dark red blood. On Saturday, patient was referred to Dr Sharma for wound care with an appointment scheduled to 04/04/17. Patient started running fever and chills with Temp 100.3 in the evening. Patient believed she has cellulitis and she went to ER yesterday. Lab WBC 10.3, Cr 2.06, CRP 13.1, Lactic acid 1.4. CT scan shows Diffuse soft tissue swelling. Periosteal reaction distal aspect of the second and third metatarsals. No soft tissue gas or acute bony erosive change. Dr Harris of vascular surgery was consulted and patient was admitted to hospital on 02/27/18 for IV antibiotics treatment. Pt was discharged home on 03/03/18 for [place]. Pt was readmitted on 03/07/18 for debridement of the lt foot wound. HOSPITAL COURSE: Pt has been treated with empirical IV clindamycin and IV Cipro with some improvement but the wound continually drained some serous drainage. Pt underwent debridement of the Lt stump foot wound on 03/07/18 with finding of a deep wound down to the bone. Pt was put on wound vac. Wound culture with a few staph epi growth that are resistant to clindamycin but sensitive to Bactrim. The wound has improved significantly during this stay. Her blood sugar has been under control. Her renal function has improved as well, Cr 1.91. Pt was ready to be discharged to home health. Pt will be on 6 weeks course of Bactrim DS. DISCHARGE MEDICATIONS: Please see below. ALLERGIES: Please see below. PHYSICAL EXAMINATION ON DISCHARGE: VITAL SIGNS: Please see below. GENERAL: AAO x3, no acute distress HEENT: NCAD, ARMAND, EOMI NECK: Supple, no carotid bruits CARDIOVASCULAR EXAMINATION: RRR, PP: 2+ b/l RESPIRATORY EXAMINATION: CTAB ABDOMINAL EXAMINATION: BS nl, NT/ND EXTREMITIES: RLE no C/C/E, LLE: stump foot s/p TMA, plantar wound near distal 1st and 2nd mettarsal bones SKIN: moist and warm NEUROLOGICAL EXAMINATION: CN2-12, sensation and motor intact PSYCHIATRIC EXAMINATION: appropriate mood and affect LABORATORY DATA: Please see below. IMAGING: None PROGNOSIS: good ACTIVITY: As tolerated. DIET: ADA DISCHARGE PLAN: discharge today DISPOSITION: home health. DISCHARGE INSTRUCTIONS: 1. Lt stump wound on wound vac, change MWF 2. Keep dressing clean and dry. ITEMS TO FOLLOWUP ON ON OUTPATIENT: 1. F/u with Dr Harris in 7-10 days DISCHARGE CONDITION: good TIME SPENT ON DISCHARGE: Greater than 60 minutes. Vital Signs/I&Os Vital Signs Date Time Temp Pulse Resp B/P (MAP) Pulse Ox O2 Delivery O2 Flow Rate FiO2 03/13/18 14:00 98.5 65 18 127/64 (85) 95 03/13/18 06:00 Room Air 03/07/18 19:54 3 I&O- Last 24 Hours up to 6 AM 03/13/18 05:59 Intake Total 3360 ml Output Total 2000 ml Balance 1360 ml Laboratory Data Labs 24H Laboratory Tests 2 03/12/18 17:00: Bedside Glucose (Misc Panel) 146H 03/12/18 20:25: Bedside Glucose (Misc Panel) 140H 03/13/18 05:36: Bedside Glucose (Misc Panel) 154H 03/13/18 11:52: Bedside Glucose (Misc Panel) 223H FSBS Laboratory Tests Test 03/12/18 17:00 03/12/18 20:25 03/13/18 05:36 03/13/18 11:52 Range/Units Bedside Glucose (Misc Panel) 146 140 154 223 70-105 MG/DL Microbiology Microbiology 03/07/18 Gram Stain - Final, Complete 03/07/18 Bacterial Culture - Final, Complete Staphylococcus Epidermidis Discharge Medications Scheduled Biotin (Vitamin H) (Biotin Maximum) 10,000 Mcg Tab, 10,000 MCG PO DAILY, (Reported) Clopidogrel Bisulfate (Plavix) 75 Mg Tab, 75 MG PO DAILY, (Reported) Cyanocobalamin (B-12) 500 Mcg Tab, 500 MCG PO DAILY, (Reported) Labetalol HCl (Labetalol HCl) 100 Mg Tab, 100 MG PO DAILY, (Reported) Multivitamins *[facility] STOCKED* (Thera M Plus *[facility] STOCKED*) 1 Tab Tab, 1 TAB PO DAILY, (Reported) Rosuvastatin Calcium (Crestor) 20 Mg Tab, 20 MG PO DAILY, (Reported) Sitagliptin (Januvia) 50 Mg Tab, 50 MG PO DAILY, (Reported) Spironolactone (Spironolactone) 25 Mg Tab, 25 MG PO DAILY, (Reported) Torsemide (Torsemide) 20 Mg Tab, 20 MG PO DAILY, (Reported) Trimethoprim/Sulfamethoxazole (Smz-Tmp Ds 800-160 mg) 1 Tab Tab, 1 TAB PO BID for Nonhealing wound cellulitis Scheduled PRN (Hydrocodone Bitartrate/AC 7.5-325 mg) 1 Tab Tab, 1 TAB PO TID PRN for PAIN, (Reported) Alprazolam (Alprazolam) 0.5 Mg Tab, 0.5 MG PO DAILY PRN for ANXIETY, (Reported) Allergies Coded Allergies: Doxycycline (Verified Allergy, Severe, SWELLING OF MOUTH AND TONGUE, 11/23/14) SWELLING BEGAN ONE HOUR AFTER FIRST DOSE Penicillins (Verified Allergy, Severe, Anaphylactic, 11/09/14) Amoxicillin (Verified Allergy, Intermediate, Hives, 02/27/18) TAPE (Verified Allergy, Intermediate, SKIN BREAKS OUT, 02/27/18) Pregabalin (Verified Adverse Reaction, Intermediate, Suicidal, 02/27/18) Gabapentin (Verified Adverse Reaction, Mild, Confusion, 02/27/18) Metformin (Verified Adverse Reaction, Mild, N/V, 02/27/18) NATALIE RAIN PA-C Mar 13, 2018 14:30
--- NOTE | 2018-04-07 07:45 | RO ---
DATE OF PROCEDURE: 03/07/2019 ATTENDING SURGEON: Dr. Bi Harris LIBRARY SPECIALIST: None. PREOPERATIVE DIAGNOSIS: Left transmetatarsal amputation wound, diabetes mellitus, chronic renal insufficiency, superficial femoral and popliteal arterial atherosclerotic occlusive disease, history of tobacco use. POSTOPERATIVE DIAGNOSIS: Left transmetatarsal amputation wound, diabetes mellitus, chronic renal insufficiency, superficial femoral and popliteal arterial atherosclerotic occlusive disease, history of tobacco use. PROCEDURE: Excisional debridement of skin, subcutaneous tissue, muscle and bone of the left transmetatarsal amputation wound with placement of a Vac dressing. INDICATION: The patient is a 47-year-old female with history of diabetes and severe atherosclerotic arterial occlusive disease in the left lower extremity requiring angioplasty who initially underwent amputation of her left first toe due to gangrene and then subsequently had deformation and ulceration of the toes on the left foot and underwent a transmetatarsal amputation. The patient has now developed a new ulcer on her left transmetatarsal amputation stump on the plantar surface and has undergone treatment with debridement and IV antibiotic therapy with improvement in her cellulitis and healing of the wound which is slow. The patient will undergo evaluation of the wound with further debridement and placement of a Vac dressing. The procedure was described and explained to the patient in detail with drawing of pictures demonstrating the procedure and the anatomy. Risks, benefits and alternative treatment options were discussed with the patient. Alternative treatment options included but were not limited to, no intervention. Benefits included but were not limited to, removal of nonviable tissue for better healing of the left transmetatarsal amputation wound. Risks included but were not limited to, infection, bleeding, renal failure requiring hemodialysis, possible need for further open surgical intervention, adverse reaction to the prepping and draping materials, adverse reaction to the anesthesia and/or local anesthetic, possible need for transfusion of blood products, cerebrovascular accident, myocardial infarction, pulmonary embolus, deep vein thrombosis (DVT, loss of limb, loss of life, poor outcome, poor results, and poor satisfaction. The patient's questions were answered. The patient voices understanding and acceptance of these risks, benefits and alternative treatment options and consents to proceed. No promises or guarantees were made to the patient regarding the procedure, results and/or outcome. ANESTHESIA: MAC. ESTIMATED BLOOD LOSS: 15 mL. IV FLUIDS: 50 mL. SPECIMEN: Bone for culture and sensitivity. COMPLICATIONS: None. DRAINS: None. IMPLANTS: None. WOUND DESCRIPTION: The wound was on the plantar surface of the left transmetatarsal amputation stump and measured approximately 1 cm in width by 1 cm in length and 1 cm in depth. DESCRIPTION OF PROCEDURE: The patient was taken to the operating room and placed supine on the operating room table and then prepped and draped in a standard surgical fashion. A time out was conducted by myself and the team members in the room confirming the correct patient, procedure and laterality. The excisional debridement of the left transmetatarsal amputation wound was then performed using scalpel and pickups with removal of all nonviable skin, subcutaneous tissue and muscle with a rongeur used to remove the bone that was exposed at the base of the wound. The bone was strong and did not appear to be infected or have osteomyelitis, but pieces of the bone were sent for culture and sensitivity. Once all nonviable tissue was removed down to healthy bleeding tissue, the wound was irrigated and then a Vac dressing placed in the wound. All instrument, sponge and needle counts were correct at the end of the case. There were no complications. Dr. Harris was present for and directed the entire case. The patient was transferred to the recovery room awake, alert, extubated and in stable condition where the procedure results and findings were discussed with the patient with all of her questions being answered.
--- NOTE | 2018-04-07 12:58 | DSES ---
DATE OF ADMISSION: 03/07/2018 DATE OF DISCHARGE: 03/13/2018 ADMITTING DIAGNOSIS: Nonhealing left transmetatarsal amputation wound. DISCHARGE DIAGNOSIS: Nonhealing left transmetatarsal amputation wound. PROCEDURES: The patient underwent debridement of her left transmetatarsal amputation wound times two. HOSPITAL COURSE: The patient was admitted for cellulitis and nonhealing wound of her left transmetatarsal amputation wound and underwent debridement twice with subsequent intravenous (IV) antibiotic therapy and a vacuum-assisted closure (VAC) placement. The patient was discharged to home with instructions to followup in 1 week.
== END 2018-03-13 17:55 | disposition home health service (06) | DRG 464 ==
LOC: M MS5PR 12:51
PROVIDERS: ADMIT Surgery Vascular Surgery; ATTEND Surgery Vascular Surgery
PROC: 0KBW0ZZ Excision of Left Foot Muscle, Open Approach (ICD-10-PCS; 2018-03-07)
PROC: 0QBP0ZZ Excision of Left Metatarsal, Open Approach (ICD-10-PCS; 2018-03-07)
PROC: 0JBR0ZZ Excision of Left Foot Subcutaneous Tissue and Fascia, Open Approach (ICD-10-PCS; principal; 2018-03-07 15:30)
DX: T87.44 Infection of amputation stump, left lower extremity (principal); L03.116 Cellulitis of left lower limb; N17.9 Acute kidney failure, unspecified; E11.51 Type 2 diabetes mellitus with diabetic peripheral angiopathy without gangrene; I11.0 Hypertensive heart disease with heart failure; I50.9 Heart failure, unspecified; I25.10 Atherosclerotic heart disease of native coronary artery without angina pectoris; Z95.1 Presence of aortocoronary bypass graft; I70.25 Atherosclerosis of native arteries of other extremities with ulceration; Z79.899 Other long term (current) drug therapy; Z88.0 Allergy status to penicillin; Z88.8 Allergy status to other drugs, medicaments and biological substances; Y83.5 Amputation of limb(s) as the cause of abnormal reaction of the patient, or of later complication, without mention of misadventure at the time of the procedure

== ENCOUNTER → 2018-04-16 | Outpatient (REF) | payer MEDICARE, MEDICAID ==
[~2018-04-16] MED LIST changes: +CIPR500T3 PO; +SULF1TAB93 PO
[2018-04-19 00:06] LABS: HPV HYBRID CAPTURE II Negative (Negative)
== END ==
LOC: M SFHCWAGY 11:52
PROVIDERS: ATTEND Nurse Practitioner Family
DX: Z12.4 Encounter for screening for malignant neoplasm of cervix (principal); F41.1 Generalized anxiety disorder; F33.0 Major depressive disorder, recurrent, mild
CPT/HCPCS: 87624; 90834; G0123; G0463

== ENCOUNTER → 2018-04-17 | Outpatient (CLI) | payer MEDICARE, MEDICAID ==
--- NOTE | 2018-04-17 15:33 | REPMRS ---
Patient History The patient states she had a clinical breast exam in 04/29 Baseline Mammogram Patient has history of uterine cancer at age 31. Family history of prostate cancer at age 50 or over in maternal grandfather. Reductions of both breasts, 2007. Benign excisional biopsy of the left breast, 1979. Digital Woman Screen Mammo: April 17, 2018 - Exam #: [id number] Bilateral CC and MLO view(s) were taken. Technologist: Tammy Pearson, Technologist No prior studies available for comparison. FINDINGS: There are scattered fibroglandular densities. There is no evidence of dominant mass, architectural distortion, or clustered microcalcification typical of malignancy. 3-D tomosynthesis shows no additional findings. Assessment: BI-RADS/ACR category 1 mammogram. Negative Mammogram. Recommendation Routine screening mammogram of both breasts in 1 year (for women over age 40). This patient's Lifetime Breast Cancer RIsk is estimated at 9.3 %. This mammogram was interpreted with the aid of an FDA-approved computer-aided dectection system. Electronically Signed By: Chano Sloan MD 04/17/18 [id number]
== END ==
LOC: M WHC 10:31
PROVIDERS: ATTEND Physician Assistant
DX: Z12.31 Encounter for screening mammogram for malignant neoplasm of breast (principal); Z85.42 Personal history of malignant neoplasm of other parts of uterus; Z80.42 Family history of malignant neoplasm of prostate

== ENCOUNTER → 2018-05-02 | Outpatient (CLI) | payer MEDICARE, MEDICAID ==
--- NOTE | 2018-05-02 14:38 | REP ---
Chest two views HISTORY: Nicotine dependence Comparison: 01/14/2015 The lungs are clear. The heart is upper limits of normal in size. The pulmonary vasculature is normal in appearance. The bony structure is intact. IMPRESSION: No acute disease. Electronically Signed by Jimbo Saxena MD 05/02/2018 02:29 P
[2018-05-02 15:01] LABS: HEMATOCRIT 38.6 % (36.0-47.0); HEMOGLOBIN 12.2 g/dl (12.0-15.5); MEAN CORPUSCULAR HEMOGLOBIN 27.9 pg (27.0-33.0); MEAN CORPUSCULAR HGB CONC 31.6 g/dl (32.0-36.5); MEAN CORPUSCULAR VOLUME 88.3 fl (80.0-96.0); PLATELET COUNT, AUTOMATED 244 10^3/uL (150-450); RED BLOOD COUNT 4.37 10^6/uL (4.00-5.40); WHITE BLOOD COUNT 10.1 10^3/uL (4.0-10.0)
[2018-05-02 15:22] LABS: ALT/SGPT 22 U/L (12-78); BILIRUBIN,TOTAL 0.2 MG/DL (0.2-1.0); BLOOD UREA NITROGEN 27 MG/DL (7-18); C REACTIVE PROTEIN QUANTITATIV < 0.30 MG/DL (0.00-0.30); CALCIUM LEVEL 8.3 MG/DL (8.5-10.1); CARBON DIOXIDE LEVEL 26 MEQ/L (21-32); CHLORIDE LEVEL 109 MEQ/L (98-107); CREATININE FOR GFR 1.87 MG/DL (0.55-1.30); GLOMERULAR FILTRATION RATE 30.6 (>58); GLUCOSE, FASTING 107 MG/DL (70-100); POTASSIUM SERUM 4.4 MEQ/L (3.5-5.1); SODIUM LEVEL 142 MEQ/L (136-145); TOTAL PROTEIN 6.3 GM/DL (6.4-8.2)
[2018-05-02 15:39] LABS: ERYTHROCYTE SEDIMENTATION RATE 30 mm/hr (0-20)
[2018-05-02 16:23] LABS: HEMOGLOBIN A1c 8.1 %
== END ==
LOC: M LAB 13:45
PROVIDERS: ATTEND Surgery
DX: E11.621 Type 2 diabetes mellitus with foot ulcer (principal)

== ENCOUNTER → 2018-05-06 | Outpatient (REF) | payer MEDICAID, MEDICARE ==
[2018-05-08 12:34] LABS: CREATININE, URINE 82.2 MG/DL; MAU/CREAT RATIO 5717.7 MCG/MG (0.0-30.0); TOTAL PROTEIN,RANDOM URINE 563.9 MG/DL (0.0-12.0)
== END ==
LOC: M SFHCPLAZ 12:48
PROVIDERS: ATTEND Physician Assistant
DX: R80.9 Proteinuria, unspecified (principal)

== ENCOUNTER → 2018-05-16 | Outpatient (CLI) | payer MEDICARE, MEDICAID ==
--- NOTE | 2018-05-31 00:55 | ECWPNPC ---
PATIENT NAME: CHRISTIAN PARKER : 1970 GENDER: FEMALE VISIT DATE: 05/16/2018 DISCHARGE DATE: 05/16/18 1132 VISIT LOCKED DATE TIME: PHYSICIAN: RILEY ROGERS MD RESOURCE: RILEY ROGERS MD REASON FOR APPOINTMENT 1. BACK PAIN HISTORY OF PRESENT ILLNESS FALL RISK SCREENING: SCREENING : NO FALLS IN THE PAST YEAR. PAIN SCREENING: PATIENT HAS A COMPLAINT OF ACUTE OR CHRONIC PAIN :YES 47 YEAR OLD FEMALE PATIENT WITH A HISTORY OF CHRONIC LOW BACK PAIN. THE PATIENT DESCRIBES THE PAIN ACHING, SHARP, STABBING, SHOOTING, AND CONTINUOUS WITH A PAIN SCORE OF 5-10/10 DEPENDING ON PHYSICAL ACTIVITY. THE PATIENT SAYS HER PAIN STARTED MANY YEARS AGO AND SHE DOES NOT RECALL A SPECIFIC INCIDENT THAT CAUSED HER PAIN TO START. THE PATIENT SAYS HER PAIN STARTS IN HER LOW BACK AREA AND RADIATES DOWN INTO HER LEFT BUTTOCK AND HER LEFT LEG WITH SOME NUMBNESS AND TINGLING IN HER LEG. THE PATIENT SAYS SHE HAS TRIED SEVERAL MEDICATIONS THAT GAVE HER ADVERSE SIDE EFFECTS INCLUDING GABAPENTIN, LYRICA, AND CYMBALTA. THE PATIENT SAYS SHE IS CURRENTLY USING HYDROCODONE AND IT HELPS CONTROL HER PAIN. THE PATIENT SAYS SHE HAS A HISTORY OF A PERIPHERAL VASCULAR CONDITION THAT CAUSES INFECTIONS AND SHE CURRENTLY HAS MRSA OVER HER FOOT. THE PATIENT REPORTS EXPERIENCING INCREASED URINATION RECENTLY. PATIENT DENIES UNEXPLAINABLE WEIGHT LOSS, FEVER, CHILLS, NEW CHANGES ON HER BOWEL CONTROL. CURRENT MEDICATIONS TAKING BLOOD PRESSURE MONITOR STANDARD DEVICE DIRECTED DIRECTED DAILY NEEDED ICD10 I10 TAKING MULTIVITAMINS CAPSULE ORALLY TAKING XANAX 0.5 MG TABLET 1 TABLET ORALLY QD PRN MDD =1 TAKING BLOOD GLUCOSE TEST STRIP STANDARD STRIP DIRECTED IN VITRO 5X/DAILY ICD10 E11.65 TAKING OMEPRAZOLE 40 MG CAPSULE DELAYED RELEASE 1 CAPSULE ORALLY ONCE A DAY TAKING CRESTOR 20 MG TABLET 1 TABLET ORALLY ONCE A DAY TAKING HYDROCODONE-ACETAMINOPHEN 7.5-325 MG TABLET 1 TABLET NEEDED ORALLY (ISTOP:[id number]) THREE TIMES DAILY TAKING BLOOD GLUCOSE TEST - STRIP DIRECTED IN VITRO BID; PRN (E11.65), NOTES: PLEASE FILL PER INSURANCE TAKING JANUVIA 50 MG TABLET 1 TABLET ORALLY ONCE A DAY TAKING GLIPIZIDE ER 5 MG TABLET EXTENDED RELEASE 24 HOUR DIRECTED ORALLY DAILY TAKING PLAVIX 75 MG TABLET 1 TABLET ORALLY ONCE A DAY TAKING TORSEMIDE 20 MG TABLET 1 TABLET ORALLY ONCE DAILY TAKING LABETALOL HCL 100 MG TABLET 1 TABLET ORALLY ONCE DAILY TAKING LISINOPRIL 5 MG TABLET 1 TABLET ORALLY ONCE A DAY TAKING GLUCOMETER 1 DIRECTED _ (E11.65) BID, NOTES: PLEASE FILL PER INSURANCE TAKING LANCETS - MISCELLANEOUS DIRECTED SUBCUTANEOUSLY BID; PRN (E11.65), NOTES: PLEASE FILL PER INSURANCE NOT-TAKING BIOTIN 2500 MCG CAPSULE 1 CAPSULE ORALLY ONCE A DAY NOT-TAKING BACTRIM 400-80 MG TABLET 1 TAB ORALLY BID NOT-TAKING MAY USE DIABETIC MULTIPLE VITAMIN LEYLA LEYLA 1 LEYLA ORALLY DAILY NOT-TAKING VITAMIN B12 1000 MCG TABLET EXTENDED RELEASE 1 TABLET ORALLY ONCE A DAY NOT-TAKING PROZAC 20 MG CAPSULE 1 CAPSULE ORALLY ONCE A DAY NOT-TAKING CIPROFLOXACIN 250 MG TABLET 1 TABLET ORALLY EVERY 12 HRS MEDICATION LIST REVIEWED AND RECONCILED WITH THE PATIENT PAST MEDICAL HISTORY HYPERTENSION HYPERLIPIDEMIA ASCVD RISK 3.2% ON 12/2017 HEART DISEASE UTERINE CANCER STROKE X 2 TYPE 2 DIABETES MELLITUS GASTRIC BYPASS PERIPHERAL VASCULAR DISEASE STAGE III CHRONIC KIDNEY DISEASE DEPRESSION ANXIETY CHF - ECHO 03/30/2015 EF 35-40% ALLERGIES PENICILLIN (FOR ALLERGIES USE ONLY): ANAPHYLAXIS - ALLERGY AMOXICILLIN: HIVES - ALLERGY METFORMIN: NAUSEA/VOMITING - ALLERGY NEURONTIN: CONFUSION - SIDE EFFECTS LYRICA: DEPRESSION - SIDE EFFECTS DOXYCYCLINE HYCLATE: ANAPHYLAXIS, FACIAL NUMBNESS - ALLERGY SURGICAL HISTORY HYSTERECTOMY FOR POLYPS AND ENDOMETRIAL CANCER ,WITH CERVIX AND OVARIAN PRESERVATION 2001 APPENDECTOMY 1980 TUBAL LIGATION 1995 TONSILLECTOMY 1984 BREAST REDUCTION 2007 HEART STENT X 17 [id number] BERNICE OROZCO 2007 TRIPLE BYPASS 02/08/2013 HEART CATH X11 [id number] EYE SURGERY 2014 ANGIOPLASTY 06/03/14 SYR MULTIPLE WOUND DEBRIDEMENTS AND DRAINAGE PLACED IN LEFT FOOT LEFT GREAT TOE AMPUTATION 10/27/15 ARTERIAL U/S GASTRIC BYPASS 01/20/2016 RIGHT LEG STENTING 04/03/2016 RIGHT LEG RESTENTING 04/2016 ARTERIAL BYPASS RIGHT LEG 12/27/2016 ANGIOPLASTY LEFT LEG 02/19/2017 PARTIAL LEFT FOOT AMPUTATION 07/2017 LASER SURGERY ON LEFT EYE 2019 INFECTION IN LEFT FOOT X 2 02/2018 FAMILY HISTORY FATHER: UNKNOWN MOTHER: ALIVE 60 YRS, DIAGNOSED WITH DIABETES, HYPERTENSION, HEART DISEASE SIBLINGS: ALIVE, DIABETES, HYPERTENSION SON(S): ALIVE DAUGHTER(S): ALIVE MATERNAL GRAND FATHER: BRAIN CANCER LUNG CANCER PROSTATE 1 BROTHER(S) , 1 SISTER(S) - HEALTHY. 1 SON(S) , 1 DAUGHTER(S) - HEALTHY. BROTHER - HYPERTENSION. SOCIAL HISTORY GENERAL: TOBACCO USE ARE YOU A:CURRENT SOME DAY SMOKER LATEX QUESTIONNAIRE LATEX ALLERGY : HAVE YOU EVER DEVELOPED ANY TYPE OF REACTION AFTER HANDLING LATEX PRODUCTS SUCH RUBBER GLOVES, CONDOMS, DIAPHRAGMS, BALLOONS, SOCKS, OR UNDERWEAR?NO LATEX ALLERGY : HAVE YOU EVER DEVELOPED ANY TYPE OF REACTION DURING OR AFTER DENTAL APPOINTMENT, VAGINAL/RECTAL EXAMINATION, SURGICAL PROCEDURE, OR ANY OTHER EXPOSURE?NO LATEX RISK : HAVE YOU EVER HAD ANY DIFFICULTY BREATHING OR HIVES AFTER EATING OR HANDLING ANY FRUITS, OR VEGETABLES; SUCH KIWI, BANANAS, STONE FRUITS, OR CHESTNUTSNO LATEX RISK : DO YOU HAVE A PREVIOUS PERSONAL HISTORY OF MORE THAN NINE SURGERIES, SPINA BIFIDA, OR REPEATED CATHERTIZATIONS? YES - PLEASE INDICATE : > 9 SURGERIES LATEX RISK : ARE YOU FREQUENTLY EXPOSED TO LATEX PRODUCTS IN YOUR OCCUPATION?NO DATE ASKED : 05/16/2018 LUNG CANCER SCREENING SMOKING STATUS:CURRENT SMOKER IS THE PATIENT BETWEEN THE AGE OF 55 AND 77?NO BMI CARE GOAL FOLLOW-UP ABOVE NORMAL BMI FOLLOW-UPDIETARY MANAGEMENT EDUCATION, GUIDANCE, AND COUNSELING, DIETARY NEEDS EDUCATION ALCOHOL SCREENING POINTS: 1, INTERPRETATION: NEGATIVE. RECREATIONAL DRUG USE DENIES. CAFFEINE CAFFEINE USE?YES HOW OFTEN AND HOW MUCH? COFFEE 5X /DAY SEXUAL HX HAD SEX IN THE LAST 12 MONTHS (VAGINAL, ORAL, OR ANAL)?YES WITHMEN ONLY USE PROTECTION?NO HAVE YOU EVER HAD AN STD?NO HIV / HEP-C SCREENING HIV TEST OFFERED TO PATIENT:YES DATE OFFERED:04/16/2018 TEST ACCEPTED:NO REASON:PATIENT DECLINED BROCHURE PROVIDED TO PATIENTNO HEP-C TEST OFFERED TO PATIENT:NO PRESYBETERIAN NO FAITH BELIEFS THAT WOULD IMPACT HEALTH CARE. LANGUAGE LANGUAGES SPOKEN:GREEK EDUCATION COLLEGE X2. LEARNING BARRIERS / SPECIAL NEEDS CHANGE FROM LAST VISIT?NO BARRIERS TO LEARNING?NO HEARING IMPAIRED?NO VISION IMPAIRED?YES :CORRECTIVE LENSES COGNITIVELY IMPAIRED?NO READINESS TO LEARN?YES LEARNING PREFERENCES?NO LEARNING CAPABILITIES PRESENT?YES EMOTIONAL BARRIERS?NO SPECIAL DEVICES?NO LEFT FOOT IS BANDAGED IS MANAGER NEEDED?NO DOMESTIC VIOLENCE NONE. OCCUPATION: DISABLED. DIET: REDUCED PORTION. EXERCISE: NO REGULAR EXERCISE. MARITAL STATUS: .. OTHERS AT HOME: PARTNER, CHILD, OTHER RELATIVE, OTHER RELATIVE. NEW PATIENT PAIN DIARY FROM 0-10, WHAT LEVEL IS YOUR PAIN TODAY?6 PAIN CLINIC PFS, CLERGY, PUBLIC HEALTH REFERRALS HAS THE PATIENT BEEN EDUCATED REGARDING HIS/HER PLAN OF CARE?YES HAS THE PATIENT BEEN EDUCATED REGARDING PAIN, THE RISK FOR PAIN, THE IMPORTANCE OF EFFECTIVE PAIN MANAGEMENT, AND THE PAIN ASSESSMENT PROCESS?YES HOUSING: RENTS HOUSE. ADVANCE DIRECTIVE ADVANCE DIRECTIVE DISCUSSED WITH PATIENT:YES PT HAS NO ADVANCED DIRECTIVES, DECLINES INFORMATION OR ASSISTANCE AT THIS TIME REVIEWED WITH PT 05/16/18 0940 LAS. HOSPITALIZATION/MAJOR DIAGNOSTIC PROCEDURE MULTIPLE SURGERIES RIGHT DIABETIC FOOT INFECTION 11/09/14-11/26/14 CHF JAN 2015 GASTRIC BYPASS JAN 2016 CELLULITIS OF LEFT FOOT 02/2018 REVIEW OF SYSTEMS REVIEWED BY: PROVIDER: RILEY ROGERS MD . CONSTITUTIONAL: ANY CHANGE IN YOUR MEDICAL CONDITION? PT HAS A HISTORY OF STAGE III RENAL FAILURE, REPORTS SHE WAS TOLD BY PRIMARY THAT PER HER BLOODWORK, HER KIDNEY FUNCTION IS WORSENING. TO SEE A SPECIALIST IN [place] . CHILLS NO . FEVER NO . INFECTION: DO YOU HAVE NEW INFECTIONS? BEING TREATED FOR FOOT INFECTION POST SURGERY . DO YOU HAVE HISTORY OF MRSA? YES IN FOOT . MUSCULOSKELETAL: ANY NEW PATTERNS OF PAIN OR NUMBNESS? NO . SYTEMIC LUPUS NO . GASTROENTEROLOGY: ANY NEW CHANGE IN BOWEL CONTROL? NO . BARRETTS ESOPHAGUS NO . CIRRHOSIS NO . HEPATITIS NO . LIVER FAILURE NO . ACID REFLUX NO . UNEXPLAINED WEIGHT LOSS NO . GENITOURINARY: ANY NEW CHANGE IN BLADDER CONTROL? INCREASED FREQUENCY, DOESN'T FEEL LIKE SHE EMPTIES HER BLADDER WHEN SHE VOIDS . IS THERE A CHANCE YOU COULD BE ? NO . HEMATOLOGY/LYMPH: DO YOU TAKE ANY BLOOD THINNERS? (FOR EXAMPLE- COUMADIN, PLAVIX, AGGRENOX, PLATEL, PRADAXA, OR XARELTO) YES, PLAVIX . WHEN WAS YOUR LAST DOSE? DATE: TIME: . LOW PLATELET COUNT NO . SICKLE CELL DISEASE NO . VON WILLIEBRANDS NO . FACTOR V LEIDEN NO . THALLASEMIA NO . ANEMIA NO . EASY BRUISING NO . NEUROLOGY: HAVE YOU FALLEN IN THE PAST 12 MONTHS? YES PT SLIPPED ON ICE AND FELL, NO ED VISIT, NO XRAYS DONE, PT DENIES INJURY . ANY NEW EXTREMITY NUMBNESS OR WEAKNESS? PT REPORTS PAIN/NUMBNESS DOWN BOTH LEGS, TO HAVE A VASCULAR ULTRASOUND SCHEDULED. . HEAD INJURY NO . DEMENTIA NO . CEREBRAL PALSY NO . MULTIPLE SCLEROSIS NO . DIZZINESS NO . HEADACHE NO . STROKES STROKE IN 2002 AND 2005, TIA'S PRIOR TO STROKES . VERTIGO NO . CARDIOLOGY: DO YOU HAVE A PACEMAKER OR DEFIBRILLATOR? NO . ANGINA NO . HEART ATTACK YES MT X 4 . HEART SURGERY YES CABG X 3, CARDIAC STENTS X 17 . CONGESTIVE HEART FAILURE/FLUID OVERLOAD YES . CHEST PAIN NO . HIGH BLOOD PRESSURE ON MEDICATION(S) . IRREGULAR HEART BEAT NO . RESPIRATORY: HAVE YOU BEEN SICK IN THE PAST WEEK? NO . FEVER NO . FLU LIKE SYMPTOMS? NO . CPAP NO . BYPAP NO . ASTHMA NO . EMPHYSEMA NO . CHRONIC LUNG DISEASES NO . SHORTNESS OF BREATH ON EXERTION NO . COUGH NO . SNORING NO . INTEGUMENTARY: DO YOU HAVE ANY RASHES OR OPEN SORES? YES FOOT INFECTION POST SURGERY LEFT FOOT, BEING TREATED BY DR. CHI . ALLERGIC/IMMUNO: ARE YOU ALLERGIC TO IV DYE? NO . ANY NEW ALLERGIES? NO . PSYCHIATRIC: DO YOU HAVE THOUGHTS OF HURTING YOURSELF OR SOMEONE ELSE? NO . ARE YOU ABUSED, NEGLECTED, OR IN AN UNSAFE ENVIRONMENT? NO . ENDOCRINOLOGY: ARE YOU DIABETIC? YES . THYROID DISORDER NO . OTHER: DO YOU NEED ANY PRESCRIPTIONS? NO . IF YES, PLEASE LIST: ____ . ANY NEW PROBLEMS WITH YOUR MEDICATIONS? NO . WHEN DID YOU LAST EAT? ____ . WHEN DID YOU LAST DRINK? ____ . WHAT DID YOU LAST DRINK? ____ . NAME OF PERSON DRIVING YOU HOME? ____ . DO YOU HAVE ANY OTHER QUESTIONS OR CONCERNS NO . VITAL SIGNS WT 185.4 LBS, HT 64 IN, BMI 31.82 INDEX, BP 151/70 MM HG, HR 76 /MIN, RR 18 /MIN, TEMP 97.9 F, OXYGEN SAT % 100%, SAFE IN ENV? (Y/N) YES, NA INITIALS AW 0922, REVIEWED BY: HALLIE. EXAMINATION GENERAL EXAMINATION: PATIENT IS ALERT O X 3 AND COOPERATIVE. LUNGS CLEAR, TO AUSCULTATION. HEART: NO MURMURS OR GALLOPS; FACIAL CRANIAL NERVES ARE GROSSLY NORMAL. GOOD SYMMETRY OF FACIAL MUSCLE MOVEMENT. NORMAL VISUAL MCRAE. PATIENT IS LIMPING FROM HER LEFT LEG. PATIENT HAS A WOUND ON HER LEFT FOOT. TENDERNESS IN THE LOW BACK AREA. LEFT LEG IS WEAKER AT EXTENSION AND FLEXION. PAIN INCREASES OVER THE LUMBAR FACET JOINTS WITH EXTENSION AND LATERAL ROTATION OF THE BACK. PRESENCE OF TRIGGER POINTS AND BANDS OF TISSUE WITH RESTRICTION OF MOVEMENT OF THE BACK. MRI OF THE LUMBAR SPINE DONE ON 09/07/2015 SHOWS FACET ARTHROPATHY CHANGES AND BULGING DISCS AT MULTIPLE LEVELS. 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 PARKER'S PAIN MANAGEMENT CASE. DUE TO THE TRIGGER POINTS, BANDS OF TISSUE, AND RESTRICTION OF MOVEMENT, I WOULD LIKE TO MOVE FORWARD WITH AT TRIGGER POINT INJECTION WITHOUT STEROIDS AT THIS TIME. WE DISCUSSED THE BENEFITS, RISKS, AND ALTERNATIVES OF THE INJECTION AND THE PATIENT WOULD LIKE TO PROCEED. I WILL GET A CLEARANCE FROM THE PATIENT'S DINING ROOM CAPTAIN REGARDING THE USE OF STEROIDS AND MUSCLE RELAXERS. I WILL NEED A CLEARANCE FROM THE PATIENT'S PRIMARY CARE PHYSICIAN OR DR. SANTILLAN TO STOP THE PATIENT'S PLAVIX PRIOR TO FUTURE INJECTIONS. I WILL ALSO REQUEST A CLEARANCE FROM DR. CHI REGARDING THE PATIENT'S HISTORY OF MRSA. I WILL SEND THE PROVIDER TO PROVIDER AGREEMENT TO THE PATIENT'S PRIMARY CARE PHYSICIAN REGARDING THE PATIENT'S PAIN MEDICATION. THE PATIENT WILL FOLLOW UP 3 WEEKS AFTER THE INJECTION. INSTRUCTIONS WERE GIVEN, QUESTIONS WERE ANSWERED, PATIENT REPORTS UNDERSTANDING AND AGREES WITH THE PLAN. I, DHEERAJ GROVES, DOCUMENTED THE ABOVE INFORMATION ACTING A SCRIBE FOR DR. ROGERS. I HAVE REVIEWED THE ABOVE DOCUMENT, WRITTEN BY DHEERAJ HOOK AND I VERIFY THAT IT IS ACCURATE. DEAR DR. ESTRADA:THANK YOU FOR YOUR KIND REFERRAL OF MRS. PARKER. IF YOU WANT TO DISCUSS HER CASE WITH ME PLEASE CALL ME AT THE PAIN CENTER AT [phone]. SINCERELY,RILEY ROGERS, [facility] . OTHERS NOTES: TRIGGER POINT INJECTION: YOUR EXPERIENCE MATERIAL WAS PRINTED,TRIGGER POINT INJECTION MATERIAL WAS PRINTED,TRIGGER POINT INJECTION MATERIAL WAS PRINTED. PROCEDURE CODES FA211 ESTABILISHED PATIENT [facility] FACILITY CHARGE [id number] CURRENT MEDS W/DOSAGES DOCUMENTED G8730 PAIN ASSESS POS TOOL F/U PLAN DOC DISPOSITION & COMMUNICATION FOLLOW UP TPI W/O STEROIDS & F/U 3 WEEKS AFTER ELECTRONICALLY SIGNED BY RILEY ROGERS MD, MD ON 05/30/2018 AT 10:53 AM EDT DISCLAIMER : THIS IS A VISIT SUMMARY EXTRACTED FROM THE [employer] CHART. IT IS NOT A COPY OF THE [facility] PROGRESS NOTE. MTDD
== END ==
LOC: M PAIN 09:00
PROVIDERS: ATTEND Anesthesiology
DX: M79.18 Myalgia, other site (principal); M47.816 Spondylosis without myelopathy or radiculopathy, lumbar region; M51.16 Intervertebral disc disorders with radiculopathy, lumbar region; E11.22 Type 2 diabetes mellitus with diabetic chronic kidney disease; E11.65 Type 2 diabetes mellitus with hyperglycemia; I13.0 Hypertensive heart and chronic kidney disease with heart failure and stage 1 through stage 4 chronic kidney disease, or unspecified chronic kidney disease; N18.3 Chronic kidney disease, stage 3 (moderate); I50.9 Heart failure, unspecified; E78.5 Hyperlipidemia, unspecified; I25.10 Atherosclerotic heart disease of native coronary artery without angina pectoris; I25.2 Old myocardial infarction; F32.9 Major depressive disorder, single episode, unspecified; F41.9 Anxiety disorder, unspecified; F17.210 Nicotine dependence, cigarettes, uncomplicated; Z79.01 Long term (current) use of anticoagulants; Z79.899 Other long term (current) drug therapy; Z79.84 Long term (current) use of oral hypoglycemic drugs; Z88.0 Allergy status to penicillin; Z88.1 Allergy status to other antibiotic agents; Z88.8 Allergy status to other drugs, medicaments and biological substances; Z85.42 Personal history of malignant neoplasm of other parts of uterus; Z86.14 Personal history of Methicillin resistant Staphylococcus aureus infection; Z98.84 Bariatric surgery status

== ENCOUNTER → 2018-05-21 | Outpatient (CLI) | payer MEDICARE, MEDICAID ==
--- NOTE | 2018-05-21 18:34 | REP ---
RIGHT LOWER EXTREMITY DOPPLER ARTERIAL ULTRASOUND: 05/21/2018. Clinical history: Right lower extremity claudication. Known right femoral popliteal graft. Comparison: 04/02/2017. Findings. The right side brachial artery measures 138, dorsalis pedis 146, [employer]IC 170. This gives ANSON 1.2. The common femoral to popliteal graft was examined. Velocities are as follows: Proximal 86 cm/S, mid 45.5 cm/S, distal 25.3 cm/S. Right lower extremity: PSV: Phasicity: [employer] CONSULTANT: 102 cm/S triphasic Profunda: 52.4 cm/S biphasic SFA proximal: 15.5 cm/S monophasic SFA mid: Occluded. SFA distal: Reversed Popliteal: 122 cm/S triphasic MIGUEL proximal: 26.6 cm/S triphasic Tibioperoneal trunk 59.5 cm/S triphasic [employer]IC proximal: 40.6 cm/S triphasic [employer] distal: 91.5 cm/S biphasic [employer]IC distal: 93 cm/S biphasic. There is a patent. The right femoral popliteal graft with triphasic flow evident. There is severe atherosclerosis seen. Moderately severe atherosclerosis is seen from the common femoral artery all the way to the foot. There is stenosis in the proximal femoral artery to mid femoral artery with reconstituted flow in the distal femoral artery in a retrograde fashion. Multiple collaterals are observed in the distal thigh. Triphasic flow is seen in the popliteal, anterior tibial, tibioperoneal trunk and the proximal posterior tibial artery. The distal tibial arteries both show biphasic flow, adequate to the ankle. Electronically Signed by Arjun Monahan MD 05/21/2018 06:26 P
== END ==
LOC: M RAD 12:34
PROVIDERS: ATTEND Surgery
DX: I73.9 Peripheral vascular disease, unspecified (principal)

== ENCOUNTER → 2018-05-26 | Outpatient (REF) | payer MEDICARE, MEDICAID ==
[2018-05-26 19:36] LABS: CALCIUM LEVEL 8.1 MG/DL (8.5-10.1); CREATININE FOR GFR 1.73 MG/DL (0.55-1.30); GLOMERULAR FILTRATION RATE 33.5 (>58); HEMOGLOBIN A1c 6.8 %; POTASSIUM SERUM 4.9 MEQ/L (3.5-5.1)
== END ==
LOC: M LAB REF 18:31
PROVIDERS: ATTEND Surgery
DX: E11.621 Type 2 diabetes mellitus with foot ulcer (principal); L97.522 Non-pressure chronic ulcer of other part of left foot with fat layer exposed
CPT/HCPCS: 15275; 80048; 83036; Q4186

== ENCOUNTER → 2018-06-25 | Outpatient (CLI) | payer MEDICARE, MEDICAID ==
[~2018-06-25] MED LIST changes: -ACET160S5 PO; +BUPIVACAINE HCL 0.25% 10 ML VIAL As Ordered ONE; +BUPIVACAINE HCL 0.25% 30 ML VIAL As Ordered ONE; +CALC12504 PO; -CALC500T36 PO; -CRES20TA PO; +CRES20TA2 PO; +TGTSUS3 PO; +TRIAMCINOLONE ACETONIDE SUSP 40 MG/ML VIAL (J3301) As Ordered ONE; +diazePAM 5 MG TAB As Ordered ONE; +oxyCODONE 5MG TAB As Ordered ONE
--- NOTE | 2018-07-08 00:09 | ECWPNPC ---
PATIENT NAME: CHRISTIAN PARKER : 1970 GENDER: FEMALE VISIT DATE: 06/25/2018 DISCHARGE DATE: 06/25/18 1529 VISIT LOCKED DATE TIME: PHYSICIAN: RILEY ROGERS MD RESOURCE: RILEY ROGERS MD REASON FOR APPOINTMENT 1. TPI HISTORY OF PRESENT ILLNESS HISTORY OF PRESENT ILLNESS: PAIN THE PATIENT DESCRIBES THE PAIN... FALL RISK SCREENING: SCREENING :NO FALLS REPORTED IN THE LAST YEAR CURRENT MEDICATIONS TAKING BLOOD PRESSURE MONITOR STANDARD DEVICE DIRECTED DIRECTED DAILY NEEDED ICD10 I10 TAKING MULTIVITAMINS CAPSULE ORALLY , NOTES: 0700 TAKING XANAX 0.5 MG TABLET 1 TABLET ORALLY QD PRN MDD =1, NOTES: 2 WEEKS AGO TAKING BLOOD GLUCOSE TEST STRIP STANDARD STRIP DIRECTED IN VITRO 5X/DAILY ICD10 E11.65 TAKING CRESTOR 20 MG TABLET 1 TABLET ORALLY ONCE A DAY, NOTES: 0700 TAKING BLOOD GLUCOSE TEST - STRIP DIRECTED IN VITRO BID; PRN (E11.65), NOTES: PLEASE FILL PER INSURANCE TAKING GLIPIZIDE ER 5 MG TABLET EXTENDED RELEASE 24 HOUR DIRECTED ORALLY DAILY, NOTES: 06/24/18@0700 TAKING PLAVIX 75 MG TABLET 1 TABLET ORALLY ONCE A DAY, NOTES: 06/23/18@0700 TAKING TORSEMIDE 20 MG TABLET 1 TABLET ORALLY ONCE DAILY, NOTES: 0700 TAKING LABETALOL HCL 100 MG TABLET 1 TABLET ORALLY ONCE DAILY, NOTES: 0700 TAKING GLUCOMETER 1 DIRECTED _ (E11.65) BID, NOTES: PLEASE FILL PER INSURANCE TAKING LANCETS - MISCELLANEOUS DIRECTED SUBCUTANEOUSLY BID; PRN (E11.65), NOTES: PLEASE FILL PER INSURANCE TAKING HYDROCODONE-ACETAMINOPHEN 7.5-325 MG TABLET 1 TABLET NEEDED ORALLY (ISTOP:[id number]) THREE TIMES DAILY, NOTES: 0700 TAKING JANUVIA 50 MG TABLET 1 TABLET ORALLY ONCE A DAY, NOTES: 06/24@0700 TAKING SPIRONOLACTONE 25 MG TABLET 1 TABLET ORALLY , NOTES: 0700 TAKING LISINOPRIL 5 MG TABLET 1 TABLET ORALLY ONCE A DAY, NOTES: 0700 TAKING PENTOXIFYLLINE ER 400 MG TABLET EXTENDED RELEASE 1 TABLET WITH MEALS ORALLY THREE TIMES DAILY, NOTES: HASN'NT USED YET TAKING BUPROPION HCL ER (SMOKING DET) 150 MG TABLET EXTENDED RELEASE 12 HOUR 1 TABLET IN THE MORNING ORALLY ONCE A DAY, NOTES: HASN'T TAKEN YET TAKING NICORETTE 4 MG GUM 1 PIECE NEEDED MOUTH/THROAT 24 TIME(S) A DAY, NOTES: HASN'T TAKEN YET TAKING BIOTIN 2500 MCG CAPSULE 1 CAPSULE ORALLY ONCE A DAY, NOTES: 0700 DISCONTINUED OMEPRAZOLE 40 MG CAPSULE DELAYED RELEASE 1 CAPSULE ORALLY ONCE A DAY DISCONTINUED LISINOPRIL 5 MG TABLET 1 TABLET ORALLY ONCE A DAY DISCONTINUED BACTRIM 400-80 MG TABLET 1 TAB ORALLY BID, NOTES: 0700 DISCONTINUED MAY USE DIABETIC MULTIPLE VITAMIN LEYLA LEYLA 1 LEYLA ORALLY DAILY DISCONTINUED VITAMIN B12 1000 MCG TABLET EXTENDED RELEASE 1 TABLET ORALLY ONCE A DAY DISCONTINUED PROZAC 20 MG CAPSULE 1 CAPSULE ORALLY ONCE A DAY DISCONTINUED CIPROFLOXACIN 250 MG TABLET 1 TABLET ORALLY EVERY 12 HRS MEDICATION LIST REVIEWED AND RECONCILED WITH THE PATIENT PAST MEDICAL HISTORY HYPERTENSION HYPERLIPIDEMIA ASCVD RISK 3.2% ON 12/2017 HEART DISEASE UTERINE CANCER STROKE X 2 TYPE 2 DIABETES MELLITUS GASTRIC BYPASS PERIPHERAL VASCULAR DISEASE STAGE III CHRONIC KIDNEY DISEASE DEPRESSION ANXIETY CHF - ECHO 03/30/2015 EF 35-40% SKIN GRAFT FAILURE ACQUIRED ABSENCE OF UTERUS ALLERGIES PENICILLIN (FOR ALLERGIES USE ONLY): ANAPHYLAXIS - ALLERGY AMOXICILLIN: HIVES - ALLERGY METFORMIN: NAUSEA/VOMITING - ALLERGY NEURONTIN: CONFUSION - SIDE EFFECTS LYRICA: DEPRESSION - SIDE EFFECTS DOXYCYCLINE HYCLATE: ANAPHYLAXIS, FACIAL NUMBNESS - ALLERGY SURGICAL HISTORY HYSTERECTOMY FOR POLYPS AND ENDOMETRIAL CANCER ,WITH CERVIX AND OVARIAN PRESERVATION 2001 APPENDECTOMY 1979 TUBAL LIGATION 1995 TONSILLECTOMY 1984 BREAST REDUCTION 2007 HEART STENT X 17 [id number] BERNICE OROZCO 2007 TRIPLE BYPASS 02/08/2013 HEART CATH X11 [id number] EYE SURGERY 2014 ANGIOPLASTY 06/03/14 SYR MULTIPLE WOUND DEBRIDEMENTS AND DRAINAGE PLACED IN LEFT FOOT LEFT GREAT TOE AMPUTATION 10/27/15 ARTERIAL U/S GASTRIC BYPASS 01/20/2016 RIGHT LEG STENTING 04/03/2016 RIGHT LEG RESTENTING 04/2016 ARTERIAL BYPASS RIGHT LEG 12/27/2016 ANGIOPLASTY LEFT LEG 02/19/2017 PARTIAL LEFT FOOT AMPUTATION 07/2017 LASER SURGERY ON LEFT EYE 2019 INFECTION IN LEFT FOOT X 2 02/2018 FAMILY HISTORY FATHER: UNKNOWN MOTHER: ALIVE 60 YRS, DIAGNOSED WITH HEART DISEASE, DIABETES, HYPERTENSION SIBLINGS: ALIVE, DIABETES, HYPERTENSION SON(S): ALIVE DAUGHTER(S): ALIVE MATERNAL GRAND FATHER: BRAIN CANCER LUNG CANCER PROSTATE 1 BROTHER(S) , 1 SISTER(S) - HEALTHY. 1 SON(S) , 1 DAUGHTER(S) - HEALTHY. BROTHER - HYPERTENSION. SOCIAL HISTORY GENERAL: TOBACCO USE ARE YOU A:CURRENT SMOKER ARE YOU INTERESTED IN QUITTING?THINKING ABOUT QUITTING PREVIOUS QUIT ATTEMPTS?YES, MORE THAN 6 MONTHS AGO. COUNSELED THE PATIENT ON SMOKING CESSATION, EDUCATION [id number]/17/2019 HOW MANY CIGARETTES A DAY DO YOU SMOKE?6-10 HOW SOON AFTER YOU WAKE UP DO YOU SMOKE YOUR FIRST CIGARETTE?AFTER 60 MIN HOW OFTEN DO YOU SMOKE CIGARETTES?SOME DAYS, BUT NOT EVERY DAY LATEX QUESTIONNAIRE LATEX ALLERGY : HAVE YOU EVER DEVELOPED ANY TYPE OF REACTION AFTER HANDLING LATEX PRODUCTS SUCH RUBBER GLOVES, CONDOMS, DIAPHRAGMS, BALLOONS, SOCKS, OR UNDERWEAR?NO LATEX ALLERGY : HAVE YOU EVER DEVELOPED ANY TYPE OF REACTION DURING OR AFTER DENTAL APPOINTMENT, VAGINAL/RECTAL EXAMINATION, SURGICAL PROCEDURE, OR ANY OTHER EXPOSURE?NO LATEX RISK : HAVE YOU EVER HAD ANY DIFFICULTY BREATHING OR HIVES AFTER EATING OR HANDLING ANY FRUITS, OR VEGETABLES; SUCH KIWI, BANANAS, STONE FRUITS, OR CHESTNUTSNO LATEX RISK : DO YOU HAVE A PREVIOUS PERSONAL HISTORY OF MORE THAN NINE SURGERIES, SPINA BIFIDA, OR REPEATED CATHERTIZATIONS? YES - PLEASE INDICATE : > 9 SURGERIES LATEX RISK : ARE YOU FREQUENTLY EXPOSED TO LATEX PRODUCTS IN YOUR OCCUPATION?NO DATE ASKED : 05/16/2018 LUNG CANCER SCREENING SMOKING STATUS:CURRENT SMOKER IS THE PATIENT BETWEEN THE AGE OF 54 AND 76?NO BMI CARE GOAL FOLLOW-UP ABOVE NORMAL BMI FOLLOW-UPDIETARY MANAGEMENT EDUCATION, GUIDANCE, AND COUNSELING, DIETARY NEEDS EDUCATION ALCOHOL SCREENING POINTS: 1, INTERPRETATION: NEGATIVE. RECREATIONAL DRUG USE DENIES. CAFFEINE CAFFEINE USE?YES HOW OFTEN AND HOW MUCH? COFFEE 5X /DAY SEXUAL HX HAD SEX IN THE LAST 12 MONTHS (VAGINAL, ORAL, OR ANAL)?YES WITHMEN ONLY USE PROTECTION?NO HAVE YOU EVER HAD AN STD?NO HIV / HEP-C SCREENING HIV TEST OFFERED TO PATIENT:YES DATE OFFERED:04/16/2018 TEST ACCEPTED:NO REASON:PATIENT DECLINED BROCHURE PROVIDED TO PATIENTNO HEP-C TEST OFFERED TO PATIENT:NO QUAKER NO RELIGION BELIEFS THAT WOULD IMPACT HEALTH CARE. LANGUAGE LANGUAGES SPOKEN:TAMAZIGHT EDUCATION COLLEGE X2. 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 OCCUPATION: DISABLED. DIET: REDUCED PORTION. EXERCISE: NO REGULAR EXERCISE. MARITAL STATUS: .. OTHERS AT HOME: PARTNER, CHILD, OTHER RELATIVE, OTHER RELATIVE. NEW PATIENT PAIN DIARY FROM 0-10, WHAT LEVEL IS YOUR PAIN TODAY?7 PAIN CLINIC PFS, CLERGY, PUBLIC HEALTH REFERRALS HAS THE PATIENT BEEN EDUCATED REGARDING HIS/HER PLAN OF CARE?YES HAS THE PATIENT BEEN EDUCATED REGARDING PAIN, THE RISK FOR PAIN, THE IMPORTANCE OF EFFECTIVE PAIN MANAGEMENT, AND THE PAIN ASSESSMENT PROCESS?YES HOUSING: RENTS HOUSE. ADVANCE DIRECTIVE ADVANCE DIRECTIVE DISCUSSED WITH PATIENT:YES PT HAS NO ADVANCED DIRECTIVES, DECLINES INFORMATION OR ASSISTANCE AT THIS TIME REVIEWED WITH PT 05/16/18 0940 LAS. HOSPITALIZATION/MAJOR DIAGNOSTIC PROCEDURE MULTIPLE SURGERIES RIGHT DIABETIC FOOT INFECTION 11/09/14-11/26/14 CHF JAN 2015 GASTRIC BYPASS JAN 2016 CELLULITIS OF LEFT FOOT 02/2018 REVIEW OF SYSTEMS REVIEWED BY: PROVIDER: . CONSTITUTIONAL: ANY CHANGE IN YOUR MEDICAL CONDITION? NO . CHILLS NO . FEVER NO . INFECTION: DO YOU HAVE NEW INFECTIONS? NO . DO YOU HAVE HISTORY OF MRSA? YES . MUSCULOSKELETAL: ANY NEW PATTERNS OF PAIN OR NUMBNESS? YES, TINGLING IN ARMS AND HANDS . GASTROENTEROLOGY: ANY NEW CHANGE IN BOWEL CONTROL? NO . GENITOURINARY: ANY NEW CHANGE IN BLADDER CONTROL? NO . IS THERE A CHANCE YOU COULD BE ? NO . HEMATOLOGY/LYMPH: DO YOU TAKE ANY BLOOD THINNERS? (FOR EXAMPLE- COUMADIN, PLAVIX, AGGRENOX, PLATEL, PRADAXA, OR XARELTO) NO . WHEN WAS YOUR LAST DOSE? DATE: TIME: 06/23/18@0700 <06/23/18@0700> . NEUROLOGY: HAVE YOU FALLEN IN THE PAST 12 MONTHS? YES . ANY NEW EXTREMITY NUMBNESS OR WEAKNESS? NO . CARDIOLOGY: DO YOU HAVE A PACEMAKER OR DEFIBRILLATOR? NO . RESPIRATORY: HAVE YOU BEEN SICK IN THE PAST WEEK? NO . FEVER NO . FLU LIKE SYMPTOMS? NO . COUGH NO . INTEGUMENTARY: DO YOU HAVE ANY RASHES OR OPEN SORES? NO . ALLERGIC/IMMUNO: ARE YOU ALLERGIC TO IV DYE? NO . ANY NEW ALLERGIES? NO . PSYCHIATRIC: DO YOU HAVE THOUGHTS OF HURTING YOURSELF OR SOMEONE ELSE? NO . ARE YOU ABUSED, NEGLECTED, OR IN AN UNSAFE ENVIRONMENT? NO . ENDOCRINOLOGY: ARE YOU DIABETIC? YES . OTHER: DO YOU NEED ANY PRESCRIPTIONS? NO . IF YES, PLEASE LIST: ____ . ANY NEW PROBLEMS WITH YOUR MEDICATIONS? NO . WHEN DID YOU LAST EAT? ____06/24/18 . WHEN DID YOU LAST DRINK? ____06 . WHAT DID YOU LAST DRINK? ____BLACK COFFEE . NAME OF PERSON DRIVING YOU HOME? ____DMITRIY FERMIN . DO YOU HAVE ANY OTHER QUESTIONS OR CONCERNS NO . VITAL SIGNS WT 179.6 LBS, HT 64 IN, BMI 30.82 INDEX, BP 171/78 MM HG, HR 67 /MIN, RR 18 /MIN, TEMP 97.0 F, OXYGEN SAT % 100%, NA INITIALS SC 13:43. ASSESSMENTS MYALGIA, OTHER SITE - M79.18 (PRIMARY) PROCEDURES PN TRIGGER POINT INJECTION WITH STEROIDS PRE PROCEDURE DIAGNOSIS 1. MYALGIA 2. PAIN AT BILATERAL LOW BACK AREA. POST PROCEDURE DIAGNOSIS 1. MYALGIA 2. PAIN AT BILATERAL LOW BACK AREA. PROCEDURE TRIGGER POINT INJECTION AT BILATERAL LOW BACK AREA. SURGEON DR. RILEY ROGERS PRODUCT OWNER NONE ANESTHESIA LOCAL PRE PROCEDURE NOTE THE PATIENT HAS A HISTORY OF CHRONIC PAIN AT THE RIGHT AND LEFT LOW BACK AREA. I EVALUATED THE PATIENT AND REVIEWED THE CHART. THERE IS EVIDENCE OF BANDS OF TISSUE WITH RESTRICTION OF MOVEMENT AND PRESENCE OF TRIGGER POINT AT THE AFFECTED AREA. I WENT OVER THE RISKS, ALTERNATIVES, AND BENEFITS ASSOCIATED WITH THIS PROCEDURE. THE PATIENT WOULD LIKE TO PROCEED AND GIVE CONSENT TO PERFORMED THE PROCEDURE. THE PATIENT DENIES UNEXPLAINABLE WEIGHT LOSS, FEVER, CHILLS, OR NEW CHANGES IN URINARY OR BOWEL CONTROL DESCRIPTION OF PROCEDURE THE PATIENT WAS BROUGHT TO THE PROCEDURE ROOM AND PLACED IN THE SITTING POSITION. THE AREA WAS CLEANED WITH ALCOHOL. THE PROCEDURE WAS DONE USING ASEPTIC STERILE TECHNIQUE. I CHECKED LATERALITY AND THE LEVEL WHERE THE PROCEDURE WAS GOING TO BE PERFORMED WITH THE PATIENT AND THE SUPPORTING STAFF AT THE MOMENT OF THE TIME OUT IN THE PROCEDURE ROOM. USING A 25-GAUGE NEEDLE, TRIGGER POINTS WERE INJECTED AT THE RIGHT AND LEFT LOW BACK AREA WITH A TOTAL OF 40 ML OF BUPIVACAINE 0.25% AND KENALOG 40 MG. THERE WAS NO EVIDENCE OF BLOOD, PARESTHESIA OR CEREBROSPINAL FLUID DURING THE PROCEDURE. THE PATIENT WAS SENT TO THE RECOVERY ROOM. THE PATIENT WAS MOVING THE EXTREMITIES AND DOING WELL. THERE WAS NO COMPLICATION DURING THE PROCEDURE POST PROCEDURE NOTE THE PATIENT WILL BE SEEN IN A FOLLOW UP IN THE NEXT FEW WEEKS. INSTRUCTIONS WERE GIVEN, QUESTIONS WERE ANSWERED, AND THE PATIENT EXPRESSED UNDERSTANDING AND AGREES WITH THE PLAN. I, ART AVILA, DOCUMENTED THE ABOVE INFORMATION ACTING A SCRIBE FOR DR. ROGERS. I HAVE REVIEWED THE ABOVE DOCUMENT, WRITTEN BY ART AVILA SCRIBE AND I VERIFY THAT IT IS ACCURATE. PROCEDURE CODES 22521 INJ TRIGGER POINT / MUSC DISPOSITION & COMMUNICATION FOLLOW UP 3 WEEKS ELECTRONICALLY SIGNED BY RILEY ROGERS MD, MD ON 07/07/2018 AT 02:50 PM EDT DISCLAIMER : THIS IS A VISIT SUMMARY EXTRACTED FROM THE [employer] [employer] [facility] CHART. IT IS NOT A COPY OF THE [employer] PROGRESS NOTE. LEONARDD
== END ==
LOC: M PAIN 13:45
PROVIDERS: ATTEND Anesthesiology
DX: M79.18 Myalgia, other site (principal); I13.0 Hypertensive heart and chronic kidney disease with heart failure and stage 1 through stage 4 chronic kidney disease, or unspecified chronic kidney disease; E78.5 Hyperlipidemia, unspecified; E11.51 Type 2 diabetes mellitus with diabetic peripheral angiopathy without gangrene; N18.3 Chronic kidney disease, stage 3 (moderate); E11.22 Type 2 diabetes mellitus with diabetic chronic kidney disease; F32.9 Major depressive disorder, single episode, unspecified; F17.210 Nicotine dependence, cigarettes, uncomplicated; F41.9 Anxiety disorder, unspecified; I50.9 Heart failure, unspecified; Z90.711 Acquired absence of uterus with remaining cervical stump; Z95.820 Peripheral vascular angioplasty status with implants and grafts; Z95.5 Presence of coronary angioplasty implant and graft; Z98.84 Bariatric surgery status; Z90.49 Acquired absence of other specified parts of digestive tract; Z79.84 Long term (current) use of oral hypoglycemic drugs; Z79.02 Long term (current) use of antithrombotics/antiplatelets; Z79.899 Other long term (current) drug therapy; Z79.891 Long term (current) use of opiate analgesic; Z88.0 Allergy status to penicillin; Z88.1 Allergy status to other antibiotic agents; Z88.8 Allergy status to other drugs, medicaments and biological substances
CPT/HCPCS: 20552; J3301

== ENCOUNTER → 2018-10-06 | Outpatient (CLI) | payer MEDICARE, MEDICAID ==
[~2018-10-06] MED LIST changes: -BUPIVACAINE HCL 0.25% 10 ML VIAL As Ordered ONE; -BUPIVACAINE HCL 0.25% 30 ML VIAL As Ordered ONE; -CALC12504 PO; +CALC500T61 PO; -TRIAMCINOLONE ACETONIDE SUSP 40 MG/ML VIAL (J3301) As Ordered ONE; -diazePAM 5 MG TAB As Ordered ONE; -oxyCODONE 5MG TAB As Ordered ONE
[2018-10-06 14:07] LABS: C REACTIVE PROTEIN QUANTITATIV 0.31 MG/DL (0.00-0.30); CALCIUM LEVEL 8.6 MG/DL (8.5-10.1); CREATININE FOR GFR 1.68 MG/DL (0.55-1.30); GLOMERULAR FILTRATION RATE 34.6 (>58); POTASSIUM SERUM 4.5 MEQ/L (3.5-5.1)
[2018-10-06 14:26] LABS: URINE TOTAL PROTEIN 334.7 MG/DL (0-12)
[2018-10-06 14:33] LABS: HEMOGLOBIN A1c 6.9 %
[2018-10-09 10:44] LABS: UPEP INTERPRETATION NO M-SPIKE NOTED; URINE VOLUME RANDOM ML
[2018-10-10 11:07] LABS: ANA (HEP2) Positive (.); ANTI DS-DNA AB <1:10 titer (.); RNP ANTIBODY < 0.2 AI (0.0-0.9); SMITHS ANTIBODY < 0.2 AI (0.0-0.9)
== END ==
LOC: M WUC 10:01
PROVIDERS: ATTEND Family Medicine
DX: N04.9 Nephrotic syndrome with unspecified morphologic changes (principal); E11.29 Type 2 diabetes mellitus with other diabetic kidney complication

== ENCOUNTER → 2018-10-06 | Outpatient (CLI) | payer MEDICARE, MEDICAID ==
[2018-10-06 13:22] LABS: BASO % 0.5 % (0.0-1.0); EOS # 0.4 10^3/uL (0.0-0.50); EOS % 4.6 % (0.0-3.0); HEMATOCRIT 39.1 % (36.0-47.0); HEMOGLOBIN 12.5 g/dl (12.0-15.5); LYMPH # 2.1 10^3/uL (1.5-4.5); MEAN CORPUSCULAR HEMOGLOBIN 29.2 pg (27.0-33.0); MEAN CORPUSCULAR VOLUME 91.4 fl (80.0-96.0); MONO # 0.8 10^3/uL (0.0-0.8); NEUTROPHILS # 5.1 10^3/uL (1.8-7.7); PLATELET COUNT, AUTOMATED 251 10^3/uL (150-450); RED BLOOD COUNT 4.28 10^6/uL (4.00-5.40); WHITE BLOOD COUNT 8.5 10^3/uL (4.0-10.0)
[2018-10-06 13:46] LABS: BILIRUBIN,TOTAL 0.3 MG/DL (0.2-1.0); CALCIUM LEVEL 8.4 MG/DL (8.5-10.1); CREATININE FOR GFR 1.67 MG/DL (0.55-1.30); GLOMERULAR FILTRATION RATE 34.9 (>58); MAGNESIUM LEVEL 2.2 MG/DL (1.8-2.4); POTASSIUM SERUM 4.8 MEQ/L (3.5-5.1); TOTAL PROTEIN 6.4 GM/DL (6.4-8.2)
== END ==
LOC: M WUC 10:07
PROVIDERS: ATTEND Internal Medicine Cardiovascular Disease
DX: I50.42 Chronic combined systolic (congestive) and diastolic (congestive) heart failure (principal); I11.0 Hypertensive heart disease with heart failure; I25.10 Atherosclerotic heart disease of native coronary artery without angina pectoris

== ENCOUNTER → 2018-10-07 | Outpatient (CLI) | payer MEDICARE, MEDICAID ==
--- NOTE | 2018-10-15 00:48 | ECWPNPC ---
PATIENT NAME: CHRISTIAN PARKER : 1970 GENDER: FEMALE VISIT DATE: 10/07/2018 DISCHARGE DATE: 10/07/18 1724 VISIT LOCKED DATE TIME: PHYSICIAN: RILEY ROGERS MD RESOURCE: RILEY ROGERS MD REASON FOR APPOINTMENT 1. POST TPI HISTORY OF PRESENT ILLNESS HISTORY OF PRESENT ILLNESS: PAIN THE PATIENT DESCRIBES THE PAIN... 47 YEAR OLD FEMALE PATIENT WITH A HISTORY OF CHRONIC LOW BACK PAIN. THE PATIENT DESCRIBES THE PAIN ACHING, SHARP, SHOOTING, AND CONTINUOUS WITH A PAIN SCORE OF 6-8/10 DEPENDING ON PHYSICAL ACTIVITY. THE PATIENT SAYS HER PAIN STARTS IN HER LOW BACK AREA AND RADIATES INTO HER LEFT BUTTOCK AND DOWN HER LEFT LEG. THE PATIENT RECEIVED A TRIGGER POINT INJECTION ON 06/25/2018 AND REPORTS HAVING ONLY ABOUT A WEEK OF PAIN RELIEF. THE PATIENT SAYS THAT SHE HAS ULCERS ON HER LEFT FOOT AND SHE SEES DR. CHI FOR THIS. THE PATIENT ALSO REPORTS HAVING A HISTORY OF STAGE 3 KIDNEY FAILURE AND SAYS THAT SHE SEES DR. PATEL AT [facility]. THE PATIENT SAYS SHE IS HAVING A CARDIAC WORKUP BY DR. HOBSON AND WILL BE HAVING A STRESS TEST SOON. PATIENT DENIES UNEXPLAINABLE WEIGHT LOSS, FEVER, CHILLS, NEW CHANGES ON HER URINARY OR BOWEL CONTROL. FALL RISK SCREENING: SCREENING :NO FALLS REPORTED IN THE LAST YEAR CURRENT MEDICATIONS TAKING BLOOD PRESSURE MONITOR STANDARD DEVICE DIRECTED DIRECTED DAILY NEEDED ICD10 I10 TAKING MULTIVITAMINS CAPSULE ORALLY DAILY TAKING BLOOD GLUCOSE TEST STRIP STANDARD STRIP DIRECTED IN VITRO 5X/DAILY ICD10 E11.65 TAKING BLOOD GLUCOSE TEST - STRIP DIRECTED IN VITRO BID; PRN (E11.65), NOTES: PLEASE FILL PER INSURANCE TAKING PLAVIX 75 MG TABLET 1 TABLET ORALLY ONCE A DAY TAKING GLUCOMETER 1 DIRECTED _ (E11.65) BID, NOTES: PLEASE FILL PER INSURANCE TAKING LANCETS - MISCELLANEOUS DIRECTED SUBCUTANEOUSLY BID; PRN (E11.65), NOTES: PLEASE FILL PER INSURANCE TAKING JANUVIA 50 MG TABLET 1 TABLET ORALLY ONCE A DAY TAKING BIOTIN 2500 MCG CAPSULE 1 CAPSULE ORALLY ONCE A DAY TAKING RANITIDINE HCL 300 MG TABLET DIRECTED ORALLY DAILY TAKING BUPROPION HCL ER (SMOKING DET) 150 MG TABLET EXTENDED RELEASE 12 HOUR 1 TABLET IN THE MORNING ORALLY ONCE A DAY TAKING RANITIDINE HCL 300 MG CAPSULE 1 CAPSULE ORALLY ONCE A DAY TAKING TIZANIDINE HCL 4 MG TABLET 1 TABLET NEEDED ORALLY BEFORE BEDTIME TAKING DULOXETINE HCL 20 MG CAPSULE DELAYED RELEASE PARTICLES 1 CAPSULE ORALLY BEFORE BEDTIME TAKING CRESTOR 20 MG TABLET 1 TABLET ORALLY BEFORE BEDTIME TAKING METOPROLOL SUCCINATE ER 25 MG TABLET EXTENDED RELEASE 24 HOUR 1 TABLET ORALLY ONCE A DAY TAKING ENTRESTO 24-26 MG TABLET 0.5 TABLET ORALLY TWICE A DAY TAKING TORSEMIDE 20 MG TABLET 1 TABLET ORALLY ONCE DAILY TAKING SPIRONOLACTONE 25 MG TABLET 1 TABLET ORALLY TAKING STEGLATRO 5 MG TABLET 1 TABLET ORALLY ONCE A DAY TAKING HYDROCODONE-ACETAMINOPHEN 7.5-325 MG TABLET 1 TABLET NEEDED ORALLY THREE TIMES DAILY MDD=3 NOT-TAKING NICORETTE 4 MG GUM 1 PIECE NEEDED MOUTH/THROAT 24 TIME(S) A DAY NOT-TAKING SUCRALFATE 1 GM TABLET 1 TABLET ON AN EMPTY STOMACH ORALLY TWICE A DAY NOT-TAKING JARDIANCE 10 MG TABLET 1 TABLET ORALLY ONCE A DAY NOT-TAKING XANAX 0.5 MG TABLET 1 TABLET ORALLY QD PRN MDD =1, NOTES: 2 WEEKS AGO MEDICATION LIST REVIEWED AND RECONCILED WITH THE PATIENT PAST MEDICAL HISTORY HYPERTENSION HYPERLIPIDEMIA ASCVD RISK 3.2% ON 12/2017 HEART DISEASE UTERINE CANCER STROKE X 2 TYPE 2 DIABETES MELLITUS GASTRIC BYPASS PERIPHERAL VASCULAR DISEASE STAGE III CHRONIC KIDNEY DISEASE DEPRESSION ANXIETY CHF - ECHO 03/30/2015 EF 35-40% SKIN GRAFT FAILURE ACQUIRED ABSENCE OF UTERUS ? ENLARGED HEART BACK PAIN HEMORRHAGE LEFT EYE ALLERGIES PENICILLIN (FOR ALLERGIES USE ONLY): ANAPHYLAXIS - ALLERGY AMOXICILLIN: HIVES - ALLERGY METFORMIN: NAUSEA/VOMITING - ALLERGY NEURONTIN: CONFUSION - SIDE EFFECTS LYRICA: DEPRESSION - SIDE EFFECTS DOXYCYCLINE HYCLATE: ANAPHYLAXIS, FACIAL NUMBNESS - ALLERGY DULOXETINE HCL: CONFUSION - SIDE EFFECTS SURGICAL HISTORY HYSTERECTOMY FOR POLYPS AND ENDOMETRIAL CANCER ,WITH CERVIX AND OVARIAN PRESERVATION 2001 APPENDECTOMY 1980 TUBAL LIGATION 1995 TONSILLECTOMY 1984 BREAST REDUCTION 2007 HEART STENT X 17 [id number] BERNICE OROZCO 2007 TRIPLE BYPASS 02/08/2013 HEART CATH X11 [id number] EYE SURGERY 2014 ANGIOPLASTY 06/03/14 SYR MULTIPLE WOUND DEBRIDEMENTS AND DRAINAGE PLACED IN LEFT FOOT LEFT GREAT TOE AMPUTATION 10/27/15 ARTERIAL U/S GASTRIC BYPASS 01/20/2016 RIGHT LEG STENTING 04/03/2016 RIGHT LEG RESTENTING 04/2016 ARTERIAL BYPASS RIGHT LEG 12/27/2016 ANGIOPLASTY LEFT LEG 02/19/2017 PARTIAL LEFT FOOT AMPUTATION 07/2017 LASER SURGERY ON LEFT EYE 2019 INFECTION IN LEFT FOOT X 2 02/2018 CABG 2013 FAMILY HISTORY FATHER: UNKNOWN MOTHER: ALIVE 60 YRS, DIAGNOSED WITH HYPERTENSION, HEART DISEASE, DIABETES SIBLINGS: ALIVE, DIABETES, HYPERTENSION SON(S): ALIVE DAUGHTER(S): ALIVE MATERNAL GRAND FATHER: BRAIN CANCER LUNG CANCER PROSTATE 1 BROTHER(S) , 1 SISTER(S) - HEALTHY. 1 SON(S) , 1 DAUGHTER(S) - HEALTHY. BROTHER - HYPERTENSION. SOCIAL HISTORY GENERAL: TOBACCO USE ARE YOU A:CURRENT SMOKER ARE YOU INTERESTED IN QUITTING?THINKING ABOUT QUITTING HAS CUT DOWN A LOT PREVIOUS QUIT ATTEMPTS?YES, MORE THAN 6 MONTHS AGO. COUNSELED THE PATIENT ON SMOKING CESSATION, EDUCATION [id number]/30/2019 HOW MANY CIGARETTES A DAY DO YOU SMOKE?6-10 HOW SOON AFTER YOU WAKE UP DO YOU SMOKE YOUR FIRST CIGARETTE?AFTER 60 MIN HOW OFTEN DO YOU SMOKE CIGARETTES?SOME DAYS, BUT NOT EVERY DAY PATIENT COUNSELED ON THE DANGERS OF TOBACCO USE AND URGED TO QUIT:10/07/2018 HIV / HEP-C SCREENING HIV TEST OFFERED TO PATIENT:YES DATE OFFERED:04/16/2018 TEST ACCEPTED:NO REASON:PATIENT DECLINED BROCHURE PROVIDED TO PATIENTNO HEP-C TEST OFFERED TO PATIENT:NO OTHERS AT HOME: PARTNER, CHILD, OTHER RELATIVE, OTHER RELATIVE. HOUSING: RENTS HOUSE. EDUCATION COLLEGE X2. DIET: REDUCED PORTION. LANGUAGE LANGUAGES SPOKEN:NEPALI DOMESTIC VIOLENCE DO YOU FEEL SAFE IN YOUR ENVIRONMENT?YES BMI CARE GOAL FOLLOW-UP ABOVE NORMAL BMI FOLLOW-UPDIETARY MANAGEMENT EDUCATION, GUIDANCE, AND COUNSELING, DIETARY NEEDS EDUCATION RECREATIONAL DRUG USE DENIES. EXERCISE: NO REGULAR EXERCISE. 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 NEEDED?NO LUNG CANCER SCREENING SMOKING STATUS:CURRENT SMOKER IS THE PATIENT BETWEEN THE AGE OF 54 AND 76?NO PAIN CLINIC PFS, CLERGY, PUBLIC HEALTH REFERRALS HAS THE PATIENT BEEN EDUCATED REGARDING HIS/HER PLAN OF CARE?YES HAS THE PATIENT BEEN EDUCATED REGARDING PAIN, THE RISK FOR PAIN, THE IMPORTANCE OF EFFECTIVE PAIN MANAGEMENT, AND THE PAIN ASSESSMENT PROCESS?YES LATEX QUESTIONNAIRE LATEX ALLERGY : HAVE YOU EVER DEVELOPED ANY TYPE OF REACTION AFTER HANDLING LATEX PRODUCTS SUCH RUBBER GLOVES, CONDOMS, DIAPHRAGMS, BALLOONS, SOCKS, OR UNDERWEAR?NO LATEX ALLERGY : HAVE YOU EVER DEVELOPED ANY TYPE OF REACTION DURING OR AFTER DENTAL APPOINTMENT, VAGINAL/RECTAL EXAMINATION, SURGICAL PROCEDURE, OR ANY OTHER EXPOSURE?NO LATEX RISK : HAVE YOU EVER HAD ANY DIFFICULTY BREATHING OR HIVES AFTER EATING OR HANDLING ANY FRUITS, OR VEGETABLES; SUCH KIWI, BANANAS, STONE FRUITS, OR CHESTNUTSNO LATEX RISK : DO YOU HAVE A PREVIOUS PERSONAL HISTORY OF MORE THAN NINE SURGERIES, SPINA BIFIDA, OR REPEATED CATHERIZATIONS? YES - PLEASE INDICATE : > 9 SURGERIES LATEX RISK : ARE YOU FREQUENTLY EXPOSED TO LATEX PRODUCTS IN YOUR OCCUPATION?NO DATE ASKED : 10/07/2018 CAFFEINE CAFFEINE USE?YES HOW OFTEN AND HOW MUCH? COFFEE 5X /DAY ADVANCE DIRECTIVE ADVANCE DIRECTIVE DISCUSSED WITH PATIENT:YES 10/07 PT. STATES SHE HAS A HCP- [facility] TURCIOS [phone] [place] NO EPISCOPALIAN BELIEFS THAT WOULD IMPACT HEALTH CARE. MARITAL STATUS: .. ALCOHOL SCREENING POINTS: 1, INTERPRETATION: NEGATIVE. OCCUPATION: DISABLED. SEXUAL HX HAD SEX IN THE LAST 12 MONTHS (VAGINAL, ORAL, OR ANAL)?YES WITHMEN ONLY USE PROTECTION?NO HAVE YOU EVER HAD AN STD?NO REVIEWED WITH PT 05/16/18 0940 LAS. HOSPITALIZATION/MAJOR DIAGNOSTIC PROCEDURE MULTIPLE SURGERIES RIGHT DIABETIC FOOT INFECTION 11/09/14-11/26/14 CHF JAN 2015 GASTRIC BYPASS JAN 2016 CELLULITIS OF LEFT FOOT 02/2018 REVIEW OF SYSTEMS REVIEWED BY: PROVIDER: RILEY ROGERS MD . CONSTITUTIONAL: ANY CHANGE IN YOUR MEDICAL CONDITION? YES, ? ENLARGED HEART . CHILLS NO . FEVER NO . INFECTION: DO YOU HAVE NEW INFECTIONS? YES, LEFT FOOT--FOLLOWED BY DR. CHI . DO YOU HAVE HISTORY OF MRSA? YES, LEFT FOOT . MUSCULOSKELETAL: ANY NEW PATTERNS OF PAIN OR NUMBNESS? NO . GASTROENTEROLOGY: ANY NEW CHANGE IN BOWEL CONTROL? NO . GENITOURINARY: ANY NEW CHANGE IN BLADDER CONTROL? NO . IS THERE A CHANCE YOU COULD BE ? NO . HEMATOLOGY/LYMPH: DO YOU TAKE ANY BLOOD THINNERS? (FOR EXAMPLE- COUMADIN, PLAVIX, AGGRENOX, PLATEL, PRADAXA, OR XARELTO) YES PLAVIX . WHEN WAS YOUR LAST DOSE? DATE: TIME:10/07 0730 . NEUROLOGY: HAVE YOU FALLEN IN THE PAST 12 MONTHS? YES, X 2 ONCE ON THE ICE AND ONCE MISSED THE BOTTOM STEP OF THE STAIRS__NO SERIOUS INJURY . ANY NEW EXTREMITY NUMBNESS OR WEAKNESS? NO . CARDIOLOGY: DO YOU HAVE A PACEMAKER OR DEFIBRILLATOR? NO . RESPIRATORY: HAVE YOU BEEN SICK IN THE PAST WEEK? YES . FEVER YES 101 . FLU LIKE SYMPTOMS? NO . COUGH YES, APPROX 2 WEEKS AGO HAD PRODUCTIVE COUGH WITH YELLOW SPUTUM TOOK MUCINEX AND FELT BETTER AFTER 2 DAYS . INTEGUMENTARY: DO YOU HAVE ANY RASHES OR OPEN SORES? YES, LEFT FOOT BEING FOLLOWED BY DR. CHI . ALLERGIC/IMMUNO: ARE YOU ALLERGIC TO IV DYE? NO . ANY NEW ALLERGIES? NO . PSYCHIATRIC: DO YOU HAVE THOUGHTS OF HURTING YOURSELF OR SOMEONE ELSE? NO . ARE YOU ABUSED, NEGLECTED, OR IN AN UNSAFE ENVIRONMENT? NO . ENDOCRINOLOGY: ARE YOU DIABETIC? NO . OTHER: DO YOU NEED ANY PRESCRIPTIONS? NO . IF YES, PLEASE LIST: ____ . ANY NEW PROBLEMS WITH YOUR MEDICATIONS? YES, MEDS HAVE BEEN CHANGED OR ADJUSTED DUE TO LOW B/P . WHEN DID YOU LAST EAT? ____ . WHEN DID YOU LAST DRINK? ____ . WHAT DID YOU LAST DRINK? ____ . NAME OF PERSON DRIVING YOU HOME? ____ . DO YOU HAVE ANY OTHER QUESTIONS OR CONCERNS NO . VITAL SIGNS WT 182.6 LBS, HT 64 IN, BMI 31.34 INDEX, BP 189/87 MM HG, REPEAT BP 150/86 MANUAL, HR 83 /MIN, RR 18 /MIN, TEMP 97.6 F, OXYGEN SAT % 100%, SAFE IN ENV? (Y/N) Y, NA INITIALS SC 16:00, REVIEWED BY: AD. EXAMINATION GENERAL EXAMINATION: PATIENT IS ALERT O X 3 AND COOPERATIVE. ANTALGIC GAIT. PATIENT IS LIMPING FROM HER LEFT LEG. LEFT LEG IS WEAKER AT EXTENSION AND FLEXION. STRAIGHT LEG RAISE OF THE LEFT LEG IS POSITIVE AT 45 DEGREES FOR RADICULOPATHY. MRI OF THE LUMBAR SPINE DONE ON 09/07/2015 IS SHOWING A BULGING DISC AT L4-L5. ASSESSMENTS INTERVERTEBRAL DISC DISORDER WITH RADICULOPATHY OF LUMBAR REGION - M51.16 (PRIMARY) TREATMENT INTERVERTEBRAL DISC DISORDER WITH RADICULOPATHY OF LUMBAR REGION CLINICAL NOTES: WE DISCUSSED SEVERAL ISSUES WITH MRS. PARKER'S PAIN MANAGEMENT CASE. I WOULD LIKE TO GET A NEW CLEARANCE TO HOLD PLAVIX FROM DR. HOBSON. I WOULD ALSO LIKE TO GET A CLEARANCE FROM DR. CHI AND DR. PATEL BEFORE MOVING FORWARD WITH AN INJECTION IN THE SPINE. THE PATIENT WILL CONSIDER A LUMBAR EPIDURAL STEROID INJECTION AFTER WE RECEIVED ALL THE CLEARANCES. THE PATIENT WILL FOLLOW UP WITH A NURSE PRACTITIONER FOR MEDICATION MANAGEMENT AND I WILL DISCUSS THE CASE WITH HIM PRIOR TO THE PATIENT'S APPOINTMENT. I WAS WITH THE PATIENT FOR OVER 25 MINUTES AND MORE THAN HALF OF THE TIME WAS SPENT DISCUSSING THE PATIENT'S RECENT HEALTH AND OPTIONS FOR PAIN MANAGEMENT. INSTRUCTIONS WERE GIVEN, QUESTIONS WERE ANSWERED, PATIENT REPORTS UNDERSTANDING AND AGREES WITH THE PLAN. I, DHEERAJ GROVES, DOCUMENTED THE ABOVE INFORMATION ACTING A SCRIBE FOR DR. ROGERS. I HAVE REVIEWED THE ABOVE DOCUMENT, WRITTEN BY DHEERAJ HOOK AND I VERIFY THAT IT IS ACCURATE. . PROCEDURE CODES FA211 ESTABILISHED PATIENT [facility] FACILITY CHARGE [id number] CURRENT MEDS W/DOSAGES DOCUMENTED G8730 PAIN ASSESS POS TOOL F/U PLAN DOC DISPOSITION & COMMUNICATION FOLLOW UP 3 WEEKS ELECTRONICALLY SIGNED BY RILEY ROGERS MD, MD ON 10/14/2018 AT 03:39 PM EDT DISCLAIMER : THIS IS A VISIT SUMMARY EXTRACTED FROM THE [facility] CHART. IT IS NOT A COPY OF THE [email or web address] PROGRESS NOTE. MTDD
== END ==
LOC: M PAIN 15:45
PROVIDERS: ATTEND Anesthesiology
DX: M51.16 Intervertebral disc disorders with radiculopathy, lumbar region (principal); G89.29 Other chronic pain; I12.9 Hypertensive chronic kidney disease with stage 1 through stage 4 chronic kidney disease, or unspecified chronic kidney disease; E78.5 Hyperlipidemia, unspecified; I25.10 Atherosclerotic heart disease of native coronary artery without angina pectoris; Z86.73 Personal history of transient ischemic attack (TIA), and cerebral infarction without residual deficits; E11.9 Type 2 diabetes mellitus without complications; Z98.84 Bariatric surgery status; N18.3 Chronic kidney disease, stage 3 (moderate); Z86.59 Personal history of other mental and behavioral disorders; Z95.5 Presence of coronary angioplasty implant and graft; F17.210 Nicotine dependence, cigarettes, uncomplicated; Z88.0 Allergy status to penicillin; Z88.1 Allergy status to other antibiotic agents; Z88.8 Allergy status to other drugs, medicaments and biological substances; Z86.14 Personal history of Methicillin resistant Staphylococcus aureus infection; Z79.01 Long term (current) use of anticoagulants; Z79.84 Long term (current) use of oral hypoglycemic drugs; Z79.899 Other long term (current) drug therapy

== ENCOUNTER → 2018-11-07 | Outpatient (CLI) | payer MEDICARE, MEDICAID ==
--- NOTE | 2018-11-12 00:47 | ECWPNPC ---
PATIENT NAME: CHRISTIAN PARKER : 1970 GENDER: FEMALE VISIT DATE: 11/07/2018 DISCHARGE DATE: 11/07/18 1429 VISIT LOCKED DATE TIME: PHYSICIAN: LUCERO TRENT RESOURCE: LUCERO TRENT REASON FOR APPOINTMENT 1. LOW BACK- KEEP LONG HISTORY OF PRESENT ILLNESS HISTORY OF PRESENT ILLNESS: PAIN THE PATIENT DESCRIBES THE PAIN... 47 YEAR OLD FEMALE IN FOR CHRONIC PAIN FOLLOW UP. SHE RATES HER PAIN AT A 7/10 CURRENTLY AND DESCRIBES IT ACHING, SHARP, SORE, AND SHOOTING. SHE DOES ADMIT TO RECENT LOSS OF BOWEL CONTROL X 2 AND NEW ONSET NUMBNESS IN HER LEFT LEG. SHE HAS AN UPCOMING APPT WITH AN ORTHOPEDIC SURGEON TO DETERMINE IF SHE'S A CANDIDATE FOR SURGERY. FALL RISK SCREENING: SCREENING :NO FALLS REPORTED IN THE LAST YEAR CURRENT MEDICATIONS TAKING BLOOD PRESSURE MONITOR STANDARD DEVICE DIRECTED DIRECTED DAILY NEEDED ICD10 I10 TAKING MULTIVITAMINS CAPSULE ORALLY DAILY TAKING BLOOD GLUCOSE TEST STRIP STANDARD STRIP DIRECTED IN VITRO 5X/DAILY ICD10 E11.65 TAKING BLOOD GLUCOSE TEST - STRIP DIRECTED IN VITRO BID; PRN (E11.65), NOTES: PLEASE FILL PER INSURANCE TAKING GLUCOMETER 1 DIRECTED _ (E11.65) BID, NOTES: PLEASE FILL PER INSURANCE TAKING LANCETS - MISCELLANEOUS DIRECTED SUBCUTANEOUSLY BID; PRN (E11.65), NOTES: PLEASE FILL PER INSURANCE TAKING JANUVIA 50 MG TABLET 1 TABLET ORALLY ONCE A DAY TAKING BIOTIN 2500 MCG CAPSULE 1 CAPSULE ORALLY ONCE A DAY TAKING RANITIDINE HCL 300 MG TABLET DIRECTED ORALLY DAILY TAKING BUPROPION HCL ER (SMOKING DET) 150 MG TABLET EXTENDED RELEASE 12 HOUR 1 TABLET IN THE MORNING ORALLY ONCE A DAY TAKING TIZANIDINE HCL 4 MG TABLET 1 TABLET NEEDED ORALLY BEFORE BEDTIME TAKING CRESTOR 20 MG TABLET 1 TABLET ORALLY BEFORE BEDTIME TAKING STEGLATRO 5 MG TABLET 1 TABLET ORALLY ONCE A DAY TAKING METOPROLOL SUCCINATE ER 25 MG TABLET EXTENDED RELEASE 24 HOUR 1 TABLET ORALLY ONCE A DAY TAKING ENTRESTO 24-26 MG TABLET 0.5 TABLET ORALLY TWICE A DAY TAKING TORSEMIDE 10 MG TABLET 1 TABLET ORALLY TWICE DAILY TAKING SPIRONOLACTONE 25 MG TABLET 1 TABLET ORALLY TAKING HYDROCODONE-ACETAMINOPHEN 7.5-325 MG TABLET 1 TABLET NEEDED ORALLY THREE TIMES DAILY MDD=3 TAKING ENTRESTO 24-26 MG TABLET 1 TABLET ORALLY TWICE A DAY DISCONTINUED PLAVIX 75 MG TABLET 1 TABLET ORALLY ONCE A DAY DISCONTINUED DULOXETINE HCL 20 MG CAPSULE DELAYED RELEASE PARTICLES 1 CAPSULE ORALLY BEFORE BEDTIME MEDICATION LIST REVIEWED AND RECONCILED WITH THE PATIENT PAST MEDICAL HISTORY HYPERTENSION HYPERLIPIDEMIA ASCVD RISK 3.2% ON 12/2017 HEART DISEASE UTERINE CANCER STROKE X 2 TYPE 2 DIABETES MELLITUS GASTRIC BYPASS PERIPHERAL VASCULAR DISEASE STAGE III CHRONIC KIDNEY DISEASE DEPRESSION ANXIETY CHF - ECHO 03/30/2015 EF 35-40% SKIN GRAFT FAILURE ACQUIRED ABSENCE OF UTERUS ? ENLARGED HEART BACK PAIN HEMORRHAGE LEFT EYE LUPUS ALLERGIES PENICILLIN (FOR ALLERGIES USE ONLY): ANAPHYLAXIS - ALLERGY AMOXICILLIN: HIVES - ALLERGY METFORMIN: NAUSEA/VOMITING - ALLERGY NEURONTIN: CONFUSION - SIDE EFFECTS LYRICA: DEPRESSION - SIDE EFFECTS DOXYCYCLINE HYCLATE: ANAPHYLAXIS, FACIAL NUMBNESS - ALLERGY DULOXETINE HCL: CONFUSION - SIDE EFFECTS SURGICAL HISTORY HYSTERECTOMY FOR POLYPS AND ENDOMETRIAL CANCER ,WITH CERVIX AND OVARIAN PRESERVATION 2001 APPENDECTOMY 1980 TUBAL LIGATION 1995 TONSILLECTOMY 1984 BREAST REDUCTION 2007 HEART STENT X 17 [id number] TUMMY TUCK 2006 TRIPLE BYPASS 02/08/2013 HEART CATH X11 [id number] EYE SURGERY 2013 ANGIOPLASTY 06/03/14 SYR MULTIPLE WOUND DEBRIDEMENTS AND DRAINAGE PLACED IN LEFT FOOT LEFT GREAT TOE AMPUTATION 10/27/15 ARTERIAL U/S GASTRIC BYPASS 01/20/2016 RIGHT LEG STENTING 04/03/2016 RIGHT LEG RESTENTING 04/2016 ARTERIAL BYPASS RIGHT LEG 12/27/2016 ANGIOPLASTY LEFT LEG 02/19/2017 PARTIAL LEFT FOOT AMPUTATION 07/2017 LASER SURGERY ON LEFT EYE 2019 INFECTION IN LEFT FOOT X 2 02/2018 CABG 2013 FAMILY HISTORY FATHER: UNKNOWN MOTHER: ALIVE 60 YRS, DIAGNOSED WITH DIABETES, HYPERTENSION, HEART DISEASE SIBLINGS: ALIVE, HYPERTENSION, DIABETES SON(S): ALIVE DAUGHTER(S): ALIVE MATERNAL GRAND FATHER: BRAIN CANCER LUNG CANCER PROSTATE 1 BROTHER(S) , 1 SISTER(S) - HEALTHY. 1 SON(S) , 1 DAUGHTER(S) - HEALTHY. BROTHER - HYPERTENSION. SOCIAL HISTORY GENERAL: TOBACCO USE ARE YOU A:CURRENT SMOKER ARE YOU INTERESTED IN QUITTING?THINKING ABOUT QUITTING HAS CUT DOWN A LOT PREVIOUS QUIT ATTEMPTS?YES, MORE THAN 6 MONTHS AGO. COUNSELED THE PATIENT ON SMOKING CESSATION, EDUCATION AOIBBAOX75/30/2019 HOW MANY CIGARETTES A DAY DO YOU SMOKE?6-10 HOW SOON AFTER YOU WAKE UP DO YOU SMOKE YOUR FIRST CIGARETTE?AFTER 60 MIN HOW OFTEN DO YOU SMOKE CIGARETTES?SOME DAYS, BUT NOT EVERY DAY PATIENT COUNSELED ON THE DANGERS OF TOBACCO USE AND URGED TO QUIT:11/07/2018 HIV / HEP-C SCREENING HIV TEST OFFERED TO PATIENT:YES DATE OFFERED:04/16/2018 TEST ACCEPTED:NO REASON:PATIENT DECLINED BROCHURE PROVIDED TO PATIENTNO HEP-C TEST OFFERED TO PATIENT:NO OTHERS AT HOME: PARTNER, CHILD, OTHER RELATIVE, OTHER RELATIVE. HOUSING: RENTS HOUSE. EDUCATION COLLEGE X2. DIET: REDUCED PORTION. LANGUAGE LANGUAGES SPOKEN:GUINEAN DOMESTIC VIOLENCE DO YOU FEEL SAFE IN YOUR ENVIRONMENT?YES BMI CARE GOAL FOLLOW-UP ABOVE NORMAL BMI FOLLOW-UPDIETARY MANAGEMENT EDUCATION, GUIDANCE, AND COUNSELING, DIETARY NEEDS EDUCATION RECREATIONAL DRUG USE DENIES. EXERCISE: NO REGULAR EXERCISE. LEARNING BARRIERS / SPECIAL NEEDS CHANGE FROM LAST VISIT?NO BARRIERS TO LEARNING?NO HEARING IMPAIRED?NO VISION IMPAIRED?YES :CORRECTIVE LENSES COGNITIVELY IMPAIRED?NO READINESS TO LEARN?YES LEARNING PREFERENCES?NO LEARNING CAPABILITIES PRESENT?YES EMOTIONAL BARRIERS?NO SPECIAL DEVICES?NO LEFT FOOT IS BANDAGED FIELD INSTALLER NEEDED?NO LUNG CANCER SCREENING SMOKING STATUS:CURRENT SMOKER IS THE PATIENT BETWEEN THE AGE OF 55 AND 77?NO PAIN CLINIC PFS, CLERGY, PUBLIC HEALTH REFERRALS HAS THE PATIENT BEEN EDUCATED REGARDING HIS/HER PLAN OF CARE?YES HAS THE PATIENT BEEN EDUCATED REGARDING PAIN, THE RISK FOR PAIN, THE IMPORTANCE OF EFFECTIVE PAIN MANAGEMENT, AND THE PAIN ASSESSMENT PROCESS?YES LATEX QUESTIONNAIRE LATEX ALLERGY : HAVE YOU EVER DEVELOPED ANY TYPE OF REACTION AFTER HANDLING LATEX PRODUCTS SUCH RUBBER GLOVES, CONDOMS, DIAPHRAGMS, BALLOONS, SOCKS, OR UNDERWEAR?NO LATEX ALLERGY : HAVE YOU EVER DEVELOPED ANY TYPE OF REACTION DURING OR AFTER DENTAL APPOINTMENT, VAGINAL/RECTAL EXAMINATION, SURGICAL PROCEDURE, OR ANY OTHER EXPOSURE?NO LATEX RISK : HAVE YOU EVER HAD ANY DIFFICULTY BREATHING OR HIVES AFTER EATING OR HANDLING ANY FRUITS, OR VEGETABLES; SUCH KIWI, BANANAS, STONE FRUITS, OR CHESTNUTSNO LATEX RISK : DO YOU HAVE A PREVIOUS PERSONAL HISTORY OF MORE THAN NINE SURGERIES, SPINA BIFIDA, OR REPEATED CATHERIZATIONS? YES - PLEASE INDICATE : > 9 SURGERIES LATEX RISK : ARE YOU FREQUENTLY EXPOSED TO LATEX PRODUCTS IN YOUR OCCUPATION?NO DATE ASKED : 11/07/2018 CAFFEINE CAFFEINE USE?YES HOW OFTEN AND HOW MUCH? COFFEE 5X /DAY ADVANCE DIRECTIVE ADVANCE DIRECTIVE DISCUSSED WITH PATIENT:YES 10/07 PT. STATES SHE HAS A HCP- HUMZA TURCIOS [phone] YAZIDI NO EPISCOPALIAN BELIEFS THAT WOULD IMPACT HEALTH CARE. MARITAL STATUS: .. ALCOHOL SCREENING POINTS: 1, INTERPRETATION: NEGATIVE. OCCUPATION: DISABLED. SEXUAL HX HAD SEX IN THE LAST 12 MONTHS (VAGINAL, ORAL, OR ANAL)?YES WITHMEN ONLY USE PROTECTION?NO HAVE YOU EVER HAD AN STD?NO HOSPITALIZATION/MAJOR DIAGNOSTIC PROCEDURE MULTIPLE SURGERIES RIGHT DIABETIC FOOT INFECTION 11/09/14-11/26/14 CHF JAN 2015 GASTRIC BYPASS JAN 2016 CELLULITIS OF LEFT FOOT 02/2018 REVIEW OF SYSTEMS REVIEWED BY: PROVIDER: LASHAY TRENT BOTTOM MAN-C . CONSTITUTIONAL: ANY CHANGE IN YOUR MEDICAL CONDITION? YES . CHILLS NO . FEVER NO . INFECTION: DO YOU HAVE NEW INFECTIONS? NO . DO YOU HAVE HISTORY OF MRSA? YES . MUSCULOSKELETAL: ANY NEW PATTERNS OF PAIN OR NUMBNESS? YES . GASTROENTEROLOGY: ANY NEW CHANGE IN BOWEL CONTROL? YES . GENITOURINARY: ANY NEW CHANGE IN BLADDER CONTROL? NO . IS THERE A CHANCE YOU COULD BE ? NO . HEMATOLOGY/LYMPH: DO YOU TAKE ANY BLOOD THINNERS? (FOR EXAMPLE- COUMADIN, PLAVIX, AGGRENOX, PLATEL, PRADAXA, OR XARELTO) NO . WHEN WAS YOUR LAST DOSE? DATE: TIME: . NEUROLOGY: HAVE YOU FALLEN IN THE PAST 12 MONTHS? YES . ANY NEW EXTREMITY NUMBNESS OR WEAKNESS? YES . CARDIOLOGY: DO YOU HAVE A PACEMAKER OR DEFIBRILLATOR? NO . RESPIRATORY: HAVE YOU BEEN SICK IN THE PAST WEEK? NO . FEVER NO . FLU LIKE SYMPTOMS? NO . COUGH NO . INTEGUMENTARY: DO YOU HAVE ANY RASHES OR OPEN SORES? YES . ALLERGIC/IMMUNO: ARE YOU ALLERGIC TO IV DYE? NO . ANY NEW ALLERGIES? NO . PSYCHIATRIC: DO YOU HAVE THOUGHTS OF HURTING YOURSELF OR SOMEONE ELSE? NO . ARE YOU ABUSED, NEGLECTED, OR IN AN UNSAFE ENVIRONMENT? NO . ENDOCRINOLOGY: ARE YOU DIABETIC? YES . OTHER: DO YOU NEED ANY PRESCRIPTIONS? YES . IF YES, PLEASE LIST: ____ . ANY NEW PROBLEMS WITH YOUR MEDICATIONS? NO . WHEN DID YOU LAST EAT? ____ . WHEN DID YOU LAST DRINK? ____ . WHAT DID YOU LAST DRINK? ____ . NAME OF PERSON DRIVING YOU HOME? ____ . DO YOU HAVE ANY OTHER QUESTIONS OR CONCERNS NO . VITAL SIGNS WT 184.2 LBS, HT 64 IN, BMI 31.61 INDEX, BP 150/80 MM HG, HR 68 /MIN, RR 18 /MIN, TEMP 98.8 F, OXYGEN SAT % 99%, SAFE IN ENV? (Y/N) YES, NA INITIALS AW 1313, REVIEWED BY: WIN. EXAMINATION GENERAL EXAMINATION: GENERALNO ACUTE DISTRESS, WELL NOURISHED AND HYDRATED. PSYCHAPPROPRIATE MOOD AND AFFECT . LUNGS:CLEAR TO AUSCULTATION BILATERALLY, NO WHEEZES, RHONCHI, RALES. HEART:NO MURMURS, REGULAR RATE AND RHYTHM. ASSESSMENTS LUMBAR BACK PAIN WITH RADICULOPATHY AFFECTING LEFT LOWER EXTREMITY - M54.17 (PRIMARY) TREATMENT LUMBAR BACK PAIN WITH RADICULOPATHY AFFECTING LEFT LOWER EXTREMITY CLINICAL NOTES: 47 YEAR OLD FEMALE IN FOR CHRONIC PAIN FOLLOW UP. GIVEN PRESENTING SYMPTOMS AND RESULTS OF PHYSICAL EXAMINATION RECOMMENDED MOVING UP HER APPT WITH THE SURGEON WHICH WAS DONE PRIOR TO THE PATIENT LEAVING TODAY. NEW APPT IS Nov AT 1430. FURTHER RECOMMENDED THAT SHE GO TO THE ER SHOULD SHE EXPERIENCE FURTHER SYMPTOMS. WILL FOLLOW UP IN 1 MONTH. PATIENT HAS EXPRESSED UNDERSTANDING OF AND WAS IN AGREEMENT WITH TREATMENT PLAN. GIVEN TIME TO ASK QUESTIONS AND EXPRESS CONCERNS. PROCEDURE CODES FA211 ESTABILISHED PATIENT [facility] CHARGE DISPOSITION & COMMUNICATION ELECTRONICALLY SIGNED BY EDUARD CARL ON 11/11/2018 AT 08:59 AM EDT DISCLAIMER : THIS IS A VISIT SUMMARY EXTRACTED FROM THE [facility] CHART. IT IS NOT A COPY OF THE [facility] PROGRESS NOTE. KATHARINE
== END ==
LOC: M PAIN 13:00
PROVIDERS: ATTEND Family Medicine
DX: M54.17 Radiculopathy, lumbosacral region (principal); Z79.84 Long term (current) use of oral hypoglycemic drugs; Z79.891 Long term (current) use of opiate analgesic; Z79.899 Other long term (current) drug therapy; F17.210 Nicotine dependence, cigarettes, uncomplicated; Z88.0 Allergy status to penicillin; Z88.8 Allergy status to other drugs, medicaments and biological substances

== ENCOUNTER → 2018-12-19 | Outpatient (CLI) | payer MEDICARE, MEDICAID ==
[~2018-12-19] MED LIST changes: +METF-791 PO; -METF500T4 PO
== END ==
LOC: M PAIN 11:30
PROVIDERS: ATTEND Family Medicine
DX: M51.16 Intervertebral disc disorders with radiculopathy, lumbar region (principal); I13.0 Hypertensive heart and chronic kidney disease with heart failure and stage 1 through stage 4 chronic kidney disease, or unspecified chronic kidney disease; E78.5 Hyperlipidemia, unspecified; E11.22 Type 2 diabetes mellitus with diabetic chronic kidney disease; I73.9 Peripheral vascular disease, unspecified; N18.3 Chronic kidney disease, stage 3 (moderate); F32.9 Major depressive disorder, single episode, unspecified; F41.9 Anxiety disorder, unspecified; I50.9 Heart failure, unspecified; Z90.710 Acquired absence of both cervix and uterus; L93.0 Discoid lupus erythematosus; Z85.42 Personal history of malignant neoplasm of other parts of uterus; Z86.73 Personal history of transient ischemic attack (TIA), and cerebral infarction without residual deficits; Z98.84 Bariatric surgery status; F17.210 Nicotine dependence, cigarettes, uncomplicated; Z95.820 Peripheral vascular angioplasty status with implants and grafts; Z88.0 Allergy status to penicillin; Z88.8 Allergy status to other drugs, medicaments and biological substances

== ENCOUNTER → 2019-01-23 | Outpatient (REF) | payer MEDICARE, MEDICAID ==
[~2019-01-23] MED LIST changes: -SIMV20TA2 PO; +SIMV20TA22 PO; -SIMV40TA2 PO; +SIMV40TA20 PO
[2019-01-23 15:30] LABS: BASO # 0.1 10^3/uL (0.0-0.2); BASO % 0.7 % (0.0-1.0); EOS # 0.3 10^3/uL (0.0-0.5); EOS % 3.2 % (0.0-3.0); HEMATOCRIT 42.9 % (36.0-47.0); HEMOGLOBIN 13.2 g/dl (12.0-15.5); LYMPH # 1.8 10^3/uL (1.5-5.0); LYMPH % 22.4 % (24.0-44.0); MEAN CORPUSCULAR HEMOGLOBIN 28.4 pg (27.0-33.0); MEAN CORPUSCULAR HGB CONC 30.8 g/dl (32.0-36.5); MEAN CORPUSCULAR VOLUME 92.3 fl (80.0-96.0); MONO # 0.8 10^3/uL (0.0-0.8); MONO % 9.3 % (0.0-5.0); NEUTROPHILS # 5.1 10^3/uL (1.5-8.5); NEUTROPHILS % 63.9 % (36.0-66.0); PLATELET COUNT, AUTOMATED 256 10^3/uL (150-450); RED BLOOD COUNT 4.65 10^6/uL (4.00-5.40)
[2019-01-23 15:39] LABS: ALBUMIN 3.6 GM/DL (3.2-5.2); BILIRUBIN,TOTAL 0.3 MG/DL (0.2-1.0); CALCIUM LEVEL 8.6 MG/DL (8.5-10.1); CHOLESTEROL RISK RATIO 3.265 (<5); CREATININE FOR GFR 2.06 MG/DL (0.55-1.30); GLOMERULAR FILTRATION RATE 27.2 (>58); MAGNESIUM LEVEL 2.1 MG/DL (1.8-2.4); PHOSPHORUS LEVEL 3.4 MG/DL (2.5-4.9); POTASSIUM SERUM 4.8 MEQ/L (3.5-5.1); TOTAL PROTEIN 7.4 GM/DL (6.4-8.2)
[2019-01-23 15:45] LABS: TOTAL 25(OH) VITAMIN D 22.4 NG/ML (30.0-100.0)
[2019-01-23 15:47] LABS: HEMOGLOBIN A1c 6.3 %
[2019-01-23 15:51] LABS: FOLATE 12.4 NG/ML
[2019-01-28 14:07] LABS: CANNABINOID, URINE Positive (Cutoff=20); CARBOXY THC (GC/MS) 81 ng/mL (Cutoff=10); CODEINE, URINE Negative (Cutoff=100); CREATININE, URINE 72.3 mg/dL (20.0-300.0); HYDROCODONE CONFIRM, URINE 2312 ng/mL (Cutoff=100); HYDROCODONE, URINE Positive (.); HYDROMORPHONE, URINE Negative (Cutoff=100); MORPHINE, URINE Negative (Cutoff=100); OPIATES, URINE Positive ng/mL (Cutoff=300)
== END ==
LOC: M SFHCPLAZ 13:57
DX: F11.90 Opioid use, unspecified, uncomplicated (principal); E11.29 Type 2 diabetes mellitus with other diabetic kidney complication; I25.2 Old myocardial infarction; Z98.890 Other specified postprocedural states; N18.3 Chronic kidney disease, stage 3 (moderate); Z79.899 Other long term (current) drug therapy
CPT/HCPCS: 36415; 80053; 80061; 80307; 82306; 82607; 82728; 82746; 83036; 83540; 83735; 84100; 85025; G0463

== ENCOUNTER → 2019-01-30 | Outpatient (CLI) | payer MEDICARE, MEDICAID ==
--- NOTE | 2019-02-02 07:08 | REP ---
MRI lumbar spine: 01/30/2019. Indication: Low back pain. Comparison: 09/07/2015. Technique: Multiplanar short and long TR sequences of the lumbar spine were obtained without IV Gadolinium. Please note that the patient was originally scheduled for CT myelogram, however, was not instructed to discontinue Plavix. The patient was told that she could not have an MRI based on femoral stents. However, upon research of the model and serial numbers, they are MRI compatible. The patient was thus reschedule for MRI. Findings: Vertebral body alignment is anatomic. Mild motion degradation is present. No worrisome marrow signal is noted. The visualized cord is normal. No significant paraspinal soft tissue abnormalities are present. Disc desiccation and mild disc space narrowing are present throughout with the exception of L5/S1. L1/L2: There is no disc herniation or significant spinal canal / neural foraminal narrowing. L2/L3: Left greater than right facet arthropathy is present without significant spinal canal / neural foraminal narrowing. L3/L4: Mild disc bulge and bilateral facet arthropathy are present with mild to moderate recess and neural foraminal narrowing. L4/L5: Diffuse disc bulge and bilateral facet arthropathy are present with moderate bilateral recess and neural foraminal narrowing. L5/S1: There is no disc herniation or significant spinal canal / neural foraminal narrowing. Impression: Multilevel degenerative sequelae as described most pronounced at L4/L5. Electronically Signed by Chris Carrion DO 01/30/2019 04:23 P
== END ==
LOC: M RAD 10:00 → M IRPRO 12:31
DX: M51.26 Other intervertebral disc displacement, lumbar region (principal)

== ENCOUNTER 2021-04-08 18:12 | Emergency (ER) | payer MEDICARE, MEDICAID ==
[~2021-04-08 18:12] MED LIST changes: +ACET-1439 PO; -ASPI81TA85 PO; +ASPI81TA86 PO; +BACTDSTA PO; +LABE100T4 PO; -LABE10TAB PO; +LISI10TA22 PO; -LISI10TA4 PO; -METF-791 PO; +METF-838 PO; -SULF1TAB93 PO; -TGTSUS3 PO
[2021-04-08] MEDS ORDERED: ASPIRIN 81 MG CHEW TABLET PO ONE (18:50)
[2021-04-08 19:26] LABS: BASO % 0.4 % (0.0-1.0); EOS # 0.1 10^3/uL (0.0-0.5); EOS % 0.6 % (0.0-3.0); HEMOGLOBIN 9.1 g/dl (12.0-15.5); LYMPH % 12.1 % (24.0-44.0); MEAN CORPUSCULAR HGB CONC 31.4 g/dl (32.0-36.5); MEAN CORPUSCULAR VOLUME 89.2 fl (80.0-96.0); MONO # 0.7 10^3/uL (0.0-0.8); MONO % 8.6 % (2.0-8.0); NEUTROPHILS # 6.6 10^3/uL (1.5-8.5); NEUTROPHILS % 77.9 % (36.0-66.0); PLATELET COUNT, AUTOMATED 165 10^3/uL (150-450); RED BLOOD COUNT 3.25 10^6/uL (4.00-5.40); WHITE BLOOD COUNT 8.4 10^3/uL (4.0-10.0)
[2021-04-08] MEDS ORDERED: CLOPIDOGREL 300 MG TAB (PLAVIX) PO ONE (19:50)
[2021-04-08] MEDS ORDERED: HEPARIN SOD (PORCINE) 5000UNITS/ML 1ML VIAL/SYRINGE IV ONE (19:55)
[2021-04-08] MEDS ORDERED: HEPARIN DRIP 25,000 UNITS in IV 1 EA IV SCH (19:55)
[2021-04-08 19:56] LABS: CK-MB VALUE MASS 45.6 NG/ML (<3.6); MB/CK RELATIVE INDEX 11.94 (< OR =4)
[2021-04-08 20:08] LABS: CALCIUM LEVEL 8.6 MG/DL (8.5-10.1); CREATININE FOR GFR 3.48 MG/DL (0.55-1.30); GLOMERULAR FILTRATION RATE 14.8 (>51); POTASSIUM SERUM 4.7 MEQ/L (3.5-5.1)
[2021-04-08 20:31] LABS: INR 1.03; PARTIAL THROMBOPLASTIN TIME 24.4 SECONDS (25.9-37.0); PROTHROMBIN TIME 13.9 SECONDS (12.7-14.5)
[2021-04-08 20:34] LABS: D-DIMER QUANT 1577.44 ng/ml (<500)
[2021-04-08] MEDS: NITROGLYCERIN 0.4 MG SUBL TABLET SL PRN ×2 (20:38→21:33)
[2021-04-08 21:33] VITALS: BP 175/77
[2021-04-08] MEDS ORDERED: MORPHINE 4 MG/ML 1ML VIAL/SYRINGE (J2270) IV ONE (21:45)
[2021-04-08 22:45] VITALS: BP 140/74
[2021-04-09] MEDS ORDERED: UNRESOLVED CLARIFICATION ENTRY XX SCH (00:01)
== END 2021-04-08 23:00 | disposition short-term general hospital (02) ==
LOC: M ED 18:12
DX: I21.4 Non-ST elevation (NSTEMI) myocardial infarction (principal); I48.91 Unspecified atrial fibrillation; I25.10 Atherosclerotic heart disease of native coronary artery without angina pectoris; I50.9 Heart failure, unspecified; I25.2 Old myocardial infarction; N18.9 Chronic kidney disease, unspecified; Z95.1 Presence of aortocoronary bypass graft; Z95.5 Presence of coronary angioplasty implant and graft; Z98.61 Coronary angioplasty status; Z79.01 Long term (current) use of anticoagulants; Z79.84 Long term (current) use of oral hypoglycemic drugs; Z79.899 Other long term (current) drug therapy; Z88.0 Allergy status to penicillin; Z88.1 Allergy status to other antibiotic agents; Z88.8 Allergy status to other drugs, medicaments and biological substances; Z91.89 Other specified personal risk factors, not elsewhere classified
CPT/HCPCS: 36415; 71045; 80048; 82550; 82553; 83690; 83880; 84484; 85025; 85379; 85610; 85730; 87798; 93005; 93041; 94760; 96374; 96375; 99285; J1644; J2270

== ENCOUNTER → 2022-02-07 | Outpatient (CLI) | payer MEDICARE, MEDICAID ==
[~2022-02-07] MED LIST changes: +CLOP75TA99 PO; -LABE100T4 PO; +LABE100T6 PO; -LABE300T2 PO; +LABE300T55 PO; -PLAV1TAB2 PO
== END ==
LOC: M CLY 11:16
PROVIDERS: ATTEND Family Medicine
DX: S93.402A Sprain of unspecified ligament of left ankle, initial encounter (principal); M77.32 Calcaneal spur, left foot; X58.XXXA Exposure to other specified factors, initial encounter; Y92.9 Unspecified place or not applicable; Y93.9 Activity, unspecified; Y99.9 Unspecified external cause status

== ENCOUNTER → 2023-01-18 | Outpatient (CLI) | payer MEDICARE, MEDICAID ==
[~2023-01-18] MED LIST changes: -VITA500064 PO; +VITA500065 PO
== END ==
LOC: M WHC 14:52
PROVIDERS: ATTEND Family Medicine
DX: Z12.31 Encounter for screening mammogram for malignant neoplasm of breast (principal)

== ENCOUNTER → 2023-12-03 | Outpatient (CLI) | payer MEDICARE, MEDICAID ==
[~2023-12-03] MED LIST changes: +LABE300T28 PO; -LABE300T55 PO; +ONDA-282 PO; -ONDA4TAB6 PO
== END ==
LOC: M CLY 09:57
PROVIDERS: ATTEND Family Medicine
DX: Z01.818 Encounter for other preprocedural examination (principal); I25.10 Atherosclerotic heart disease of native coronary artery without angina pectoris

== ENCOUNTER → 2024-01-28 | Outpatient (CLI) | payer MEDICARE, MEDICAID | LOC: M WHC 14:37 | PROVIDERS: ATTEND Family Medicine | DX: Z12.31 Encounter for screening mammogram for malignant neoplasm of breast (principal); Z53.9 Procedure and treatment not carried out, unspecified reason ==